=== PATIENT | female | born 1955 | race Caucasian/White ===

== ENCOUNTER 2018-11-24 16:39 | Emergency (ER) | payer OTHER, SELFPAY ==
[2018-11-24 16:45] VITALS: BP 147/96; PULSE 89; RESP 14; O2SAT 99
--- NOTE | 2018-11-24 16:51 | DI.RAD.S_ITS ---
PROCEDURE: XR CHEST 1V INDICATIONS: chest pain TECHNIQUE: One view of the chest was acquired. COMPARISON: None. FINDINGS: Surgical changes and devices: None. Lungs and pleura: Lungs are clear. No pleural effusions or pneumothorax. Mediastinum: Mediastinal contours appear normal. Heart size is normal. Bones and chest wall: No suspicious bony lesions. Overlying soft tissues appear unremarkable. IMPRESSION: No acute cardiopulmonary findings. Dictated by: Glory Burgess M.D. on 11/24/2018 at 17:14 Approved by: Glory Burgess M.D. on 11/24/2018 at 17:15
[2018-11-24 16:52] VITALS: BP 147/96; PULSE 93; RESP 12; TEMP 36.9; O2SAT 98; BMI 44.5
--- NOTE | 2018-11-24 16:58 | ED.CHESTPAIN ---
HPI - Chest Pain General Chief Complaint: Chest Pain Stated Complaint: Right Side Chest Pain for couple of days Time Seen by Provider: 11/24/18 16:50 Source: patient Mode of arrival: ambulatory Limitations: no limitations History of Present Illness HPI narrative: Patient is a 63-year-old female who presents with right-sided chest pain ongoing for last 2 days. It is fairly constant in nature. She noticed it when she went to sleep last night but she was able to sleep without any difficulty and when she woke up it was still there. She has also been having some right-sided jaw aching but she does not know if pain in her chest is radiating to her jaw or not. She denies any worsening pain with movement or deep breathing. She has no abdominal pain nausea shortness of breath with exertion. She did take a Ativan last night to help her sleep. MD complaint: chest pain Duration: constant Onset: during rest Pain location: right chest Severity: moderate Pain radiation: jaw/teeth Relieving factors: nothing Exacerbating factors: nothing Related Data Home Medications Medication Instructions Recorded Confirmed hydrocodone-acetaminophen [Vicodin] #0 04/19/17 meloxicam [Mobic] 7.5 mg PO AMCC #0 04/19/17 topiramate [Topamax] 50 mg #0 04/19/17 Previous Rx's Medication Instructions Recorded oxycodone-acetaminophen [Percocet] 1 - 2 tab PO Q4HP PRN #10 tab 04/19/17 prednisone 50 mg PO AMCC 5 Days #0 tab 04/19/17 Allergies Allergy/AdvReac Type Severity Reaction Status Date / Time Antihistamines - Alkylamine Allergy Intermediate Verified 11/24/18 16:56 [ANTIHISTAMINES - ALKYLAMINE] Review of Systems Review of Systems GENERAL: Denies chills, fatigue, malaise, fever, sweats, travel HEENT: Denies sinus pain, ear pain, sore throat, difficulty swallowing, neck pain RESPIRATORY: See HPI CARDIOVASCULAR: Denies chest pain, palpitations, orthopnea, edema GASTROINTESTINAL: Denies nausea, vomiting, abdominal pain, diarrhea, constipation, melena. : Denies dysuria, frequency, incontinence, hematuria, urinary retention, flank pain. MUSCULOSKELETAL: Denies weakness, joint pain, or bony pain SKIN: No rash, no erythema, no pruritus NEUROLOGIC: Denies weakness, dizziness, headache, numbness, change in speech, confusion PSYCHIATRIC: No concerning psychosocial issues. 12 point review of systems is negative except for those stated above and HPI [facility] Social History Smoking Status: Former smoker Social History Smoking Status: Former smoker Exam Initial Vital Signs Initial Vital Signs: Vital Signs Pulse Rate 89 11/24/18 16:45 Respiratory Rate 14 11/24/18 16:45 Blood Pressure 147/96 H 11/24/18 16:45 Pulse Oximetry 99 11/24/18 16:45 GENERAL: Well-appearing, well-nourished and in no acute distress. HEENT: Head atraumatic,EOMI, pupils reactive CARDIOVASCULAR: Regular rate and rhythm without murmurs, rubs or gallops. Pain not reproducible with palpation RESPIRATORY: Breath sounds equal bilaterally, no wheezes rales or rhonchi. ABDOMEN: Soft, nontender. Normoactive bowel sounds all 4 quadrants. No guarding or rebound. No right upper quadrant tenderness EXTREMITIES: Normal range of motion, no clubbing or edema. Neurovascularly intact NEUROLOGICAL: Alert and oriented x4.Normal gait and speech. Cranial nerves II through XII grossly intact. SKIN: Warm, dry, no laceration, no petechiae, no rashes or lesions. Scores HEART Score Heart Score history: Slightly Suspicious Heart Score EKG: Normal Heart Score Age: 45-64 years old Heart Score risk factors: No known risk factors Heart Score troponin: < or = to normal limit Heart Score Total: 1 Course Orders Ordered: Discontinued Medications Ketorolac Tromethamine (Toradol) 30 mg IV NOW ONE Stop: 11/24/18 16:58 Last Admin: 11/24/18 17:18 Dose: 30 mg Vital Signs - 8 hr 11/24/18 16:52 Temperature 98.4 F Pulse Rate 93 H Respiratory Rate 12 Blood Pressure 147/96 H Pulse Oximetry 98 MDM - Chest Pain Lab Data Attestation: I reviewed the patient's lab results. Result diagrams: 11/24/18 17:12 11/24/18 17:12 Lab Results 11/24/18 11/24/18 11/24/18 Range/Units 17:12 17:12 17:12 WBC 8.7 (4.5-11.0) X10^3/uL RBC 4.75 (4.0-5.2) X10^6/uL Hgb 13.3 (12.0-16.0) g/dL Hct 39.9 (36-46) % MCV 84.1 (80-100) fL MCH 27.9 (26-34) PG MCHC 33.2 (30-36) % RDW 13.8 (11.6-14.8) % Plt Count 315 (150-400) X10^3/uL Neut % (Auto) 71.6 (50-75) % Lymph % (Auto) 17.2 L (25-40) % Keith % (Auto) 8.1 (3-14) % Eos % (Auto) 2.8 (2-4) % Baso % (Auto) 0.3 (0-2) % Neut # (Auto) 6200 (1333-5704) /uL Lymph # (Auto) 1500 (0768-5671) /uL Keith # (Auto) 700 (0-900) /uL Eos # (Auto) 200 (0-450) /uL Baso # (Auto) 0 (0-100) /uL PT 12.1 (10.1-12.7) SECONDS INR 1.0 (0.9-1.3) APTT 31 (26.4-36.2) SECONDS Sodium 142 (137-145) mmol/L Potassium 4.2 (3.4-5.1) mmol/L Chloride 107 (98-107) mmol/L Carbon Dioxide 26 (22-32) mmol/L BUN 14 (7-17) mg/dL Creatinine 0.90 (0.52-1.04) mg/dL Estimated GFR > 60.0 (>60) mL/min BUN/Creatinine Ratio 15.6 (6-22) Glucose 112 H (80-110) mg/dL Calcium 9.7 (8.4-10.2) mg/dL Total Bilirubin 0.4 (0.2-1.3) mg/dL AST 21 (14-36) IU/L ALT 16 (9-52) IU/L Alkaline Phosphatase 102 (38-126) U/L Total Creatine Kinase 64 (30-135) U/L CK-MB (CK-2) TNP CK-MB (CK-2) Rel Index TNP Troponin I < 0.012 (0.01-0.034) ng/mL Total Protein 7.8 (6.3-8.2) g/dL Albumin 4.2 (3.5-5.0) g/dL Globulin 3.6 (1.7-4.1) g/dL Albumin/Globulin Ratio 1.2 (1.0-2.8) Lipase 59 (23-300) U/L Imaging Data Chest x-ray: Radiologist's impression: PROCEDURE: XR CHEST 1V INDICATIONS: chest pain TECHNIQUE: One view of the chest was acquired. COMPARISON: None. FINDINGS: Surgical changes and devices: None. Lungs and pleura: Lungs are clear. No pleural effusions or pneumothorax. Mediastinum: Mediastinal contours appear normal. Heart size is normal. Bones and chest wall: No suspicious bony lesions. Overlying soft tissues appear unremarkable. IMPRESSION: No acute cardiopulmonary findings. Dictated by: Glory Burgess M.D. on 11/24/2018 at 17:14 ECG Data Attestation: I personally reviewed and interpreted this ECG as follows: Prior ECG tracings: not available for review Interpretation: Normal sinus rhythm rate [address] changes or T-wave inversions low voltage noted in leads 3 and AVF MDM Narrative Medical decision making narrative: The patient is re-evaluated her pain is better after Toradol. Her pain is reproducible under the right breast in the right rib cage. At this time I think this is more likely musculoskeletal. I have considered several life threatening etiologies for the patients right-sided chest such as ACS, PE, dissection and this patients presentation is not consistent with such entities and therefore , no further testing was warranted. I discussed all findings with the patient and spouse, Education has been performed regarding treatment plan, diagnosis, warning signs and symptoms and all concerns have been addressed. Verbally agree with and understood all of the above. Discharge Plan Departure Patient Disposition: Home Clinical Impression: Acute costochondritis, Atypical chest pain Discharge Date/Time: 11/24/18 18:20 Interventions: ED Discharge Assessment Last Done: 11/24/18 18:20 Instructions: Costochondritis, DI for Atypical Chest Pain Activity Restrictions/Additional Instructions: *You have been diagnosed with atypical chest pain, costochondritis *What to do: At this time I feel that his chest pain is more musculoskeletal. This can take some time to improve. However he still may require further cardiac testing which her PCP can help you arrange. *Continue to take medications as directed Continue meloxicam 7.5 mg daily-do not combine with ibuprofen, Advil, Aleve, naproxen *Follow up with your primary care provider in 2-3 days *Return to ER if you should have worsening chest pain, increasing shortness of breath, or any new, worsening or concerning symptoms Prescriptions: No Action topiramate [Topamax] 50 MG tablet 50 mg Qty: 0 RF: 0 hydrocodone-acetaminophen [Vicodin] 5 MG/300 MG tablet Qty: 0 RF: 0 meloxicam [Mobic] 7.5 MG tablet 7.5 mg PO AMCC Qty: 0 RF: 0 oxycodone-acetaminophen [Percocet] 5 MG/325 MG tablet 1 - 2 tab PO Q4HP PRNQty: 10 RF: 0 prednisone 50 MG tablet 50 mg PO AMCC 5 Days Qty: 0 RF: 0 Referrals: Merrill Broderick MD [Non-Staff] -
[2018-11-24] MEDS: KETOROLAC 60 MG/2 ML VIAL 30 MG IV (17:18)
[2018-11-24 17:19] LABS: Add Manual Diff / Slide Review NO; Basophils Absolute Auto 0 /uL (0-100); Basophils Percent Auto 0.3 % (0-2); Eosinophils Absolute Auto 200 /uL (0-450); Eosinophils Percent Auto 2.8 % (2-4); Hematocrit 39.9 % (36-46); Hemoglobin 13.3 g/dL (12.0-16.0); Lymphocytes Absolute Auto 1500 /uL (1100-4500); Lymphocytes Percent Auto 17.2 % (25-40); Mean Corpuscular HGB Conc 33.2 % (30-36); Mean Corpuscular Hemoglobin 27.9 PG (26-34); Mean Corpuscular Volume 84.1 fL (80-100); Monocytes Absolute Auto 700 /uL (0-900); Monocytes Percent Auto 8.1 % (3-14); Neutrophils Absolute Auto 6200 /uL (1500-7000); Neutrophils Percent Auto 71.6 % (50-75); Platelet Count 315 X10^3/uL (150-400); Red Blood Cell Count 4.75 X10^6/uL (4.0-5.2); Red Cell Distribution Width 13.8 % (11.6-14.8); White Blood Cell Count 8.7 X10^3/uL (4.5-11.0)
[2018-11-24 17:26] LABS: Prothrombin Time 12.1 SECONDS (10.1-12.7)
[2018-11-24 17:28] LABS: PTT Partial Thromboplastin Tim 31 SECONDS (26.4-36.2)
[2018-11-24 17:34] LABS: Alanine Aminotransferase 16 IU/L (9-52); Albumin 4.2 g/dL (3.5-5.0); Albumin Globulin Ratio 1.2 (1.0-2.8); Alkaline Phosphatase 102 U/L (38-126); Aspartate Aminotransferase 21 IU/L (14-36); BUN Creatinine Ratio 15.6 (6-22); Bilirubin Total 0.4 mg/dL (0.2-1.3); Blood Urea Nitrogen 14 mg/dL (7-17); Calcium 9.7 mg/dL (8.4-10.2); Carbon Dioxide 26 mmol/L (22-32); Chloride 107 mmol/L (98-107); Creatine Kinase 64 U/L (30-135); Estimated Glomerular Filt Rate > 60.0 mL/min (>60); Globulin 3.6 g/dL (1.7-4.1); Glucose 112 mg/dL (80-110); HEMOLYSIS < 15 (0-50); Lipase 59 U/L (23-300); Potassium 4.2 mmol/L (3.4-5.1); Sodium 142 mmol/L (137-145); Total Protein 7.8 g/dL (6.3-8.2)
[2018-11-24 17:45] LABS: Troponin I < 0.012 ng/mL (0.01-0.034)
[2018-11-24 18:05] VITALS: BP 151/84; PULSE 70; RESP 13; O2SAT 99
== END 2018-11-24 18:20 | disposition home or self-care (01) ==
PROVIDERS: Emergency Provider Emergency Medicine
DX: M94.0 Chondrocostal junction syndrome [Tietze] (principal); R07.89 Other chest pain
CPT/HCPCS: 36591; 71045; 80053; 82550; 83690; 84484; 85025; 85610; 85730; 93005; 96374; 99283; 99285; J1885

== ENCOUNTER 2019-03-17 11:25 | Emergency (ER) | payer OTHER, SELFPAY ==
[2019-03-17 11:32] VITALS: BP 132/90; PULSE 82; RESP 13; TEMP 36.1; O2SAT 97
--- NOTE | 2019-03-17 11:34 | ED_ITS ---
HPI - Extremity Injury (Upper) <HERNANDO Hill - Last Filed: 03/17/19 13:37> General Chief Complaint: Extremity Injury, Upper Stated Complaint: Left elbow pain/sweeling 8 hours Time Seen by Provider: 03/17/19 11:29 Source: patient Mode of arrival: Ambulatory Limitations: no limitations History of Present Illness HPI narrative: 63-year-old female presents emergency department complaining of left elbow pain and swelling upon waking this morning. She states the pain is a 2/10 dull aching pain that is worse with palpation. She denies any trauma, history of crawling around in her elbows, recent injuries, recent wounds, chills, or other concerns. She denies nausea, vomiting, diarrhea, chest pain, shortness of breath, shoulder pain, wrist pain. Related Data Home Medications Medication Instructions Recorded Confirmed hydrocodone-acetaminophen [Vicodin] #0 04/19/17 meloxicam [Mobic] 7.5 mg PO AMCC #0 04/19/17 topiramate [Topamax] 50 mg #0 04/19/17 Previous Rx's Medication Instructions Recorded oxycodone-acetaminophen [Percocet] 1 - 2 tab PO Q4HP PRN #10 tab 04/19/17 prednisone 50 mg PO AMCC 5 Days #0 tab 04/19/17 cephalexin 500 mg PO QID 7 Days #28 cap 03/17/19 Allergies Allergy/AdvReac Type Severity Reaction Status Date / Time Antihistamines - Alkylamine Allergy Intermediate Verified 11/24/18 16:56 [ANTIHISTAMINES - ALKYLAMINE] Review of Systems <HERNANDO Hill - Last Filed: 03/17/19 13:37> Review of Systems Narrative: REVIEW OF SYSTEMS: GENERAL: Denies fever or chills. HENT: No head trauma. EYES: No double vision or vision loss. CARDIOVASCULAR: No chest pain or syncope. RESPIRATORY: No shortness of breath or cough. GASTROINTESTINAL: No nausea, vomiting, diarrhea, or constipation. GENITOURINARY: No flank pain or dysuria. MUSCULOSKELETAL: Complains of left elbow pain, see HPI. INTEGUMENTARY: No rash, lesions, or pruritus. NEURO: No numbness, tingling. PSYCH: No behavior or mood changes. Patient History <HERNANDO Hill - Last Filed: 03/17/19 13:37> Medical History Sciatica (Acute) Social History Smoking Status: Former smoker alcohol intake frequency: 0-2 drinks per day Substance Use Type: does not use Exam <HERNANDO Hill - Last Filed: 03/17/19 13:37> Narrative Exam Narrative: PHYSICAL EXAMINATION: GENERAL: Well groomed, alert, and cooperative. Answers questions promptly and appropriately. Vital signs noted. HENT: Normocephalic, atraumatic. EYES: Symmetrical, sclera white, no periorbital swelling. CARDIOVASCULAR: S1 and S2 sounds normal. Regular rate and rhythm, no murmurs, clicks, or bruits. No pedal edema. RESPIRATORY: Normal respiratory rate, trachea midline, airway patent. No stridor, nasal flaring or accessory muscle use. Lungs are clear in all quintero. MUSCULOSKELETAL: Increased swelling, increased warmth, and slight erythema over left olecranon process. Patient has full extension and full flexion of the elbow. Slight tenderness to proximal radial head. Normal gait and coordination. Equal tone and mass bilaterally. Applications Consultant strength equal bilaterally, forearm, d eltoid strength equal bilaterally. EXTREMITIES: CMS intact. No pedal edema. SKIN: Warm, dry, soft, appropriate color for ethnicity. No lesions, rashes, or wounds. NEURO: Alert and Oriented X 3. No sensory deficits. PSYCH: Appropriate affect and mood. Initial Vital Signs Initial Vital Signs: Vital Signs Temperature 97 F L 03/17/19 11:32 Pulse Rate 82 03/17/19 11:32 Respiratory Rate 13 03/17/19 11:32 Blood Pressure 132/90 03/17/19 11:32 Pulse Oximetry 97 03/17/19 11:32 <Mirtha Shepard DO - Last Filed: 03/17/19 16:14> Initial Vital Signs Initial Vital Signs: Vital Signs Temperature 97 F L 03/17/19 11:32 Pulse Rate 82 03/17/19 11:32 Respiratory Rate 13 03/17/19 11:32 Blood Pressure 132/90 03/17/19 11:32 Pulse Oximetry 97 03/17/19 11:32 Course <HERNANDO Hill - Last Filed: 03/17/19 13:37> Orders Ordered: ED Orders 03/17/19 11:33 XR elbow LT min 3V Stat Consultations Consultation #1: Case was staffed with Dr. Shepard. Vital Signs Vital signs: Vital Signs - 8 hr 03/17/19 11:32 Temperature 97 F L Pulse Rate 82 Respiratory Rate 13 Blood Pressure 132/90 Pulse Oximetry 97 <iMrtha Shpeard DO - Last Filed: 03/17/19 16:14> Orders Ordered: ED Orders 03/17/19 11:33 XR elbow LT min 3V Stat Vital Signs Vital signs: Vital Signs - 8 hr 03/17/19 11:32 Temperature 97 F L Pulse Rate 82 Respiratory Rate 13 Blood Pressure 132/90 Pulse Oximetry 97 MDM - Extremity Injury (Upper) <HERNANDO Hill - Last Filed: 03/17/19 13:37> Medical Records Attestation: I reviewed the patient's medical records. Lab Data Attestation: I reviewed the patient's lab results. Imaging Data Elbow XR: Radiologist's impression: [address] [address] XRay Report Signed Patient: Chelita Singh [facility]#: [id number] : 8Acct:[id number] Age/Sex: 63 / FDate of Service: 03/17/19 Loc: ED Accession Number: [id number] Procedure: XR elbow LT min 3V Ordering Provider: Celina Garibay PROCEDURE: XR ELBOW LT MIN 3V INDICATIONS: Swelling/tenderness to L elbow TECHNIQUE: 3 views of the elbow were acquired. COMPARISON: None. FINDINGS: Bones: No fractures or dislocations. No suspicious bony lesions. Age- appropriate bony degenerative changes are seen. Soft tissues: Mild generalized soft tissue swelling is seen. No significant elbow joint effusion. No suspicious soft tissue calcifications. IMPRESSION: Generalized soft tissue swelling is seen, without a brady elbow joint effusion. No acute bony abnormality is seen. Dictated by: Waylon Phelan M.D. on 03/17/2019 at 11:03 Approved by: Waylon Phelan M.D. on 03/17/2019 at 11:03 [facility] Narrative Medical decision making narrative: Differential includes inflammatory bursitis versus cellulitis. Suspecting cellulitis due to diffuse inflammation, increased erythema, and increased tenderness versus explicit inflamed bursa sac (additionally, patient does not report any trauma, crawling on elbows, or repetitive usage that would support bursitis). Less likely septic joint as patient had full range of motion without pain. Patient was given Keflex, she was instructed to return to emergency department for any worsening symptoms, systemic symptoms such as fever, and/or spreading of the rash. Patient currently takes meloxicam as needed for hip pain, she was instructed to take a few doses as well to help relieve swelling and pain. Patient was encouraged to follow up with her primary care provider in the next few weeks for re-evaluation and further discussion about additional testing if indicated if symptoms continue. Strict return precautions given. Discharge Plan Departure Patient Disposition: Home Clinical Impression: Cellulitis Qualifiers: Site of cellulitis: extremity Site of cellulitis of extremity: upper extremity Laterality: left Qualified Code(s): L03.114 - Cellulitis of left upper limb Bursitis Qualifiers: Bursitis location: elbow Elbow bursitis location: olecranon bursitis Laterality: left Qualified Code(s): M70.22 - Olecranon bursitis, left elbow Discharge Date/Time: 03/17/19 12:28 Instructions: DI for Cellulitis -- Adult, DI for Elbow Pain, DI for Elbow Bursitis Activity Restrictions/Additional Instructions: Thank you for entrusting me with your care today. As discussed, your x-ray was negative for any fractures. It is possible your symptoms are caused by cellulitis and/or bursitis. Please take antibiotics as directed. You may use ibuprofen or naproxen for the next few days for swelling and pain. Follow up with your primary care provider in the next few weeks for evaluation. Return emergency department if you develops worsening symptoms such as increased redness, worsening swelling, fevers, chest pain, uncontrollable vomiting, or shortness of breath. Prescriptions: New cephalexin 500 mg capsule 500 mg PO QID 7 Days Qty: 28 RF: 0 No Action topiramate [Topamax] 50 MG tablet 50 mg Qty: 0 RF: 0 hydrocodone-acetaminophen [Vicodin] 5 MG/300 MG tablet Qty: 0 RF: 0 meloxicam [Mobic] 7.5 MG tablet 7.5 mg PO AMCC Qty: 0 RF: 0 oxycodone-acetaminophen [Percocet] 5 MG/325 MG tablet 1 - 2 tab PO Q4HP PRNQty: 10 RF: 0 prednisone 50 MG tablet 50 mg PO AMCC 5 Days Qty: 0 RF: 0
== END 2019-03-17 12:28 | disposition home or self-care (01) ==
PROVIDERS: Emergency Provider Nurse Practitioner
DX: L03.114 Cellulitis of left upper limb (principal); M70.22 Olecranon bursitis, left elbow
CPT/HCPCS: 73080; 99282; 99283

== ENCOUNTER 2019-12-13 23:58 | Emergency (ER) | payer OTHER, SELFPAY ==
[2019-12-14 00:47] VITALS: BP 143/83; PULSE 68; RESP 20; TEMP 36.6
[2019-12-14] MEDS: TET,DIPH,PERTUSS(ACELL),VAC/PF 0.5 ML SYRINGE IM (01:01)
[2019-12-14] MEDS: LIDO 1%/SOD BICARB 8.4% (10ML) 10 ML SYRINGE INJ (01:06)
--- NOTE | 2019-12-14 01:12 | ED_ITS ---
HPI - Wound/Laceration General Chief Complaint: Wound/Laceration Stated Complaint: cut on left eyebrow Time Seen by Provider: 12/13/19 23:59 Source: patient and family Mode of arrival: Ambulatory Limitations: no limitations History of Present Illness HPI narrative: 64F former smoker presents with significant other and chief complaint of a fall from ground level with facial laceration. She was walking and carrying some objects at a local [place] site and tripped on a curb and fell forward striking her forehead on the ground. She denies other injury. She denies loss of consciousness nor nausea or vomiting. She does not take any blood thinners. She has full recall of the event and states her fall was purely due to tripping. Her tetanus is out-of-date and she is willing to updated today Onset (ago): minute(s) Location: face Place: outdoors Patient tetanus UTD: No Context: accidental Associated symptoms: none Treatments prior to arrival: bandage Related Data Home Medications Medication Instructions Recorded Confirmed hydrocodone-acetaminophen [Vicodin] #0 04/19/17 meloxicam [Mobic] 7.5 mg PO AMCC #0 04/19/17 topiramate [Topamax] 50 mg #0 04/19/17 Previous Rx's Medication Instructions Recorded oxycodone-acetaminophen [Percocet] 1 - 2 tab PO Q4HP PRN #10 tab 04/19/17 prednisone 50 mg PO AMCC 5 Days #0 tab 04/19/17 Allergies Allergy/AdvReac Type Severity Reaction Status Date / Time Antihistamines - Alkylamine Allergy Intermediate Verified 11/24/18 16:56 [ANTIHISTAMINES - ALKYLAMINE] Review of Systems Constitutional Constitutional: Denies chills, Denies fatigue, Denies fever(s), Denies frequent falls, Denies lethargy and Denies weakness Eyes Eyes: Denies change in vision, Denies eye discharge, Denies irritation and De nies loss of vision ENT Ears, Nose, Mouth, and Throat: Denies change in voice, Denies dizziness, Denies neck pain, Denies sore throat and Denies throat swelling Cardiovascular Cardiovascular: Denies chest pain, Denies irregular heart rhythm, Denies lightheadedness, Denies palpitations, Denies dyspnea, Denies dyspnea on exertion and Denies orthopnea Respiratory Respiratory: Denies cough, Denies dyspnea, Denies dyspnea on exertion and Denies wheezing Gastrointestinal Gastrointestinal: Denies abdominal pain, Denies change in bowel habits, Denies diarrhea, Denies nausea and Denies vomiting Musculoskeletal Musculoskeletal: Denies neck pain and Denies numbness Integumentary/Breasts Skin/Breast: Denies pruritus, Denies erythema, Denies rash and Reports wounds Neurologic Neurologic: Denies behavioral changes, Denies confusion, Denies dizziness, Denies frequent falls, Denies loss of vision, Denies numbness and Denies weakness Psychiatric Psychiatric: Denies anxiety, Denies behavioral changes, Denies confusion, Denies depression, Denies homicidal ideation and Denies suicidal ideation Endocrine Endocrine: Denies fatigue, Denies flushing and Denies palpitations Hematologic/Lymphatic Hematologic/Lymphatic: Denies easy bruising Allergic/Immunologic Allergic/Immunologic: Denies urticaria, Denies throat swelling and Denies wheezing Patient History Medical History Sciatica (Acute) Social History Smoking Status: Former smoker Smoking Status: Former smoker alcohol intake frequency: 0-2 drinks per day Substance Use Type: does not use Exam Narrative Exam Narrative: GEN: AOx3 and in mild distress. GCS 15 HEAD: 1 cm laceration with minimal bleeding over left brow. No evidence of depressed skull fracture. NECK: No midline pain or step-off. No pain with range of motion EYES: Pupils are equal, round, and reactive to light and accommodation. Extraoccular muscles are intact bilaterally. There is no subconjunctival hemorrhage or exudate. CHEST: Lungs are clear to auscultation bilaterally and free of wheezes, rales, or rhonchi. Heart rate is regular rhythm, there are no murmurs, clicks, rubs, or gallops. There is no chest wall tenderness. ABD: Abdomen is soft and nontender. There is no guarding or rebound. Bowel sounds are normal in all 4 quadrants. There is no mass or organomegaly. EXT: Full painless ROM of all extremities with no loss of sensation or strength. SKIN: Warm, pink, and dry. No erythema or rash Initial Vital Signs Initial Vital Signs: Vital Signs Temperature 97.9 F 12/14/19 00:47 Pulse Rate 68 12/14/19 00:47 Respiratory Rate 20 12/14/19 00:47 Blood Pressure 143/83 H 12/14/19 00:47 Procedures Laceration Repair Laceration 1: Site: face Side (If applicable): left Size (cm): 1.0 Description: linear Depth: simple, single layer Local Anesthetic: lidocaine 1% Amount of anesthesia used (mL): 3 Pre-repair: wound explored and irrigated extensively Skin layer closed with: nylon Size (cm): 6-0 Number of sutures: 2 Technique: simple, interrupted Course Orders Ordered: Discontinued Medications Diphtheria/Tetanus/Acell Pertussis (Adacel) 0.5 ml IM .ONCE ONE Stop: 12/14/19 00:56 Last Admin: 12/14/19 01:01 Dose: 0.5 ml Documented by: TIMOTHY Lidocaine/Sodium Bicarbonate (Buffered Lidocaine 10 Ml Syr) 10 ml INJ NOW ONE Stop: 12/14/19 00:52 Last Admin: 12/14/19 01:06 Dose: 10 ml Documented by: TIMOTHY Vital Signs Vital signs: Vital Signs - 8 hr 12/14/19 00:47 12/14/19 01:15 Temperature 97.9 F Pulse Rate 68 60 Respiratory Rate 20 18 Blood Pressure 143/83 H Pulse Oximetry 97 Discharge Plan Departure Patient Disposition: Home Clinical Impression: Laceration Discharge Date/Time: 12/14/19 01:28 Instructions: DI for Laceration Repair Activity Restrictions/Additional Instructions: Please keep the wound clean and dry to the best of your ability. Please monitor for signs of infection such as redness to the skin or increasing pain. Have the sutures removed by your doctor in about 7 days. If you are unable to get into your doctor, we would be happy to remove the sutures in that same timeframe. Prescriptions: No Action topiramate [Topamax] 50 MG tablet 50 mg Qty: 0 RF: 0 hydrocodone-acetaminophen [Vicodin] 5 MG/300 MG tablet Qty: 0 RF: 0 meloxicam [Mobic] 7.5 MG tablet 7.5 mg PO AMCC Qty: 0 RF: 0 oxycodone-acetaminophen [Percocet] 5 MG/325 MG tablet 1 - 2 tab PO Q4HP PRNQty: 10 RF: 0 prednisone 50 MG tablet 50 mg PO AMCC 5 Days Qty: 0 RF: 0 Referrals: Trudi Jones DO [Primary Care Provider] -
[2019-12-14 01:15] VITALS: PULSE 60; RESP 18; O2SAT 97
== END 2019-12-14 01:28 | disposition home or self-care (01) ==
PROVIDERS: Emergency Provider Emergency Medicine; PCP Family Medicine
DX: S01.81XA Laceration without foreign body of other part of head, initial encounter (principal); W19.XXXA Unspecified fall, initial encounter; Z23 Encounter for immunization
CPT/HCPCS: 12011; 90471; 99283; 99284; 90715

== ENCOUNTER → 2020-03-08 14:11 | Outpatient (CLI) | payer OTHER, SELFPAY ==
--- NOTE | 2020-03-08 | DI.MG.S_ITS ---
BILATERAL DIGITAL SCREENING MAMMOGRAM 3D/2D WITH CAD: 03/08/2020 CLINICAL: Routine screening. Comparison is made to exams dated: 04/15/2017 mammogram - [facility] and 03/11/2015 mammogram - [facility]. The tissue of both breasts is predominantly fatty. Current study was also evaluated with a Computer Aided Detection (CAD) system. No significant masses, calcifications, or other findings are seen in either breast. There has been no significant interval change. IMPRESSION: NEGATIVE There is no mammographic evidence of malignancy. A 1 year screening mammogram is recommended. This exam was interpreted at Station ID: [id number]. NOTE: For mammograms, a report in lay terms will be sent to the patient. Approximately 15% of breast malignancies will not be visualized mammographically. In the management of a palpable breast mass, a negative mammogram must not discourage biopsy of a clinically suspicious lesion. Electronically Signed By: Sunil [email or web address]:03/10/2020 12:12:47 letter sent: Normal Exam ACR BI-RADS Category 1: Negative [id number]
== END ==
PROVIDERS: PCP Family Medicine; Referring Provider Family Medicine; Visit Provider Family Medicine
DX: Z12.31 Encounter for screening mammogram for malignant neoplasm of breast (principal)
CPT/HCPCS: 77063; 77067

== ENCOUNTER → 2021-04-02 11:06 | Outpatient (CLI) | payer OTHER, SELFPAY ==
--- NOTE | 2021-04-02 11:11 | DI.RAD.S_ITS ---
PROCEDURE: XR FOOT LT MIN 3V INDICATIONS: LT FOOT INJURY/PAIN TECHNIQUE: 3 views of the foot were acquired. COMPARISON: [facility], CR, XR FOOT 1 OR 2 VIEWS LEFT, 12/13/2012, 9:05. FINDINGS: Bones: No fractures or dislocations. No suspicious bony lesions. Left metatarsophalangeal joint replacement noted. Periprosthetic 1 mm lucency noted. Unchanged os navicularis Soft tissues: No tibiotalar joint effusion. Achilles tendon appears normal. IMPRESSION: 1. No acute findings. No fracture or malalignment. No lytic lesion. 2. Left 1st MTP arthroplasty in good position. 1 mm periprosthetic lucency may reflect loosening Approved by: Geovanny Maldonado M.D. on 04/02/2021 at 17:53
== END ==
PROVIDERS: PCP Family Medicine; Referring Provider Family Medicine; Visit Provider Family Medicine
DX: S99.922A Unspecified injury of left foot, initial encounter (principal); M79.672 Pain in left foot; X58.XXXA Exposure to other specified factors, initial encounter
CPT/HCPCS: 73630

== ENCOUNTER → 2021-10-31 15:04 | Outpatient (CLI) | payer OTHER, SELFPAY ==
--- NOTE | 2021-10-31 | DI.RAD.S_ITS ---
PROCEDURE: XR SHOULDER LT MIN 2V INDICATIONS: Fall/Left Shoulder Pain TECHNIQUE: 3 views of the shoulder were acquired. COMPARISON: None. FINDINGS: Bones: No acute fractures or dislocations. No suspicious bony lesions. Visualized ribs appear intact. Mild to moderate degenerative changes seen in the acromioclavicular joint. Soft tissues: No suspicious soft tissue calcifications. IMPRESSION: No acute osseous abnormality. If clinical suspicion and/or symptoms persist, additional imaging with repeat plain films, or advanced imaging (e.g. CT, MRI) may be helpful for further assessment. Dictated by: Sunil Lester M.D. on 10/31/2021 at 16:08 Approved by: Sunil Lester M.D. on 10/31/2021 at 16:09
== END ==
PROVIDERS: PCP Family Medicine; Referring Provider Family Medicine; Visit Provider Family Medicine
DX: M75.102 Unspecified rotator cuff tear or rupture of left shoulder, not specified as traumatic (principal); M25.512 Pain in left shoulder
CPT/HCPCS: 73030

== ENCOUNTER → 2022-12-15 09:53 | Outpatient (CLI) | payer MEDICARE, OTHER, SELFPAY ==
--- NOTE | 2022-12-15 | DI.MG.S_ITS ---
BILATERAL DIGITAL SCREENING MAMMOGRAM 3D/2D WITH CAD: 12/15/2022 CLINICAL: Routine screening. Comparison is made to exams dated: 03/08/2020 mammogram, 04/15/2017 mammogram - [facility], and 03/11/2015 mammogram - [facility]. Both breasts are almost entirely fatty (category a/<25% glandular tissue). Current study was also evaluated with a Computer Aided Detection (CAD) system. No significant masses, calcifications, or other findings are seen in either breast. There has been no significant interval change. IMPRESSION: NEGATIVE There is no mammographic evidence of malignancy. A 1 year screening mammogram is recommended. Based on the Tyrer Cuzick model (a risk assessment model) the patient's lifetime risk is 2.8% and her 10 year risk is 1.4%. According to the ACR, ACS, and NCCN guidelines, an annual breast MRI exam along with mammogram is recommended if the patient's lifetime risk is 20% or greater. This exam was interpreted at Station ID: [id number]. NOTE: For mammograms, a report in lay terms will be sent to the patient. Approximately 15% of breast malignancies will not be visualized mammographically. In the management of a palpable breast mass, a negative mammogram must not discourage biopsy of a clinically suspicious lesion. Electronically Signed By: Henry [email or web address]/[email or web address]:12/15/2022 15:20:40 letter sent: Normal Exam ACR BI-RADS Category 1: Negative [id number]
== END ==
PROVIDERS: PCP Family Medicine; Referring Provider Student in an Organized Health Care Education/Training Program; Visit Provider Student in an Organized Health Care Education/Training Program
DX: Z12.31 Encounter for screening mammogram for malignant neoplasm of breast (principal)
CPT/HCPCS: 77063; 77067

== ENCOUNTER 2023-05-23 13:36 | Emergency (ER) | payer MEDICARE, SELFPAY ==
[2023-05-23 13:48] VITALS: BP 161/79; PULSE 70; RESP 17; TEMP 36.1; O2SAT 98; BMI 32.5
[2023-05-23 14:04] LABS: Appearance Urine UA CLEAR; Bilirubin Urine UA NEGATIVE (NEGATIVE); Glucose Urine UA NEGATIVE (Negative); Ketones Urine UA TRACE (NEGATIVE); Leukocyte Esterase Urine UA 2+ (NEGATIVE); Nitrite Urine UA POSITIVE (Negative); Occult Blood Urine UA 3+ (Negative); Protein Urine UA 2+ (Negative); Specific Gravity Urine UA >=1.030 (1.000-1.035)
[2023-05-23 14:14] LABS: pH Urine UA 6.5 (4.5-8.0)
[2023-05-23 14:15] LABS: Bacteria Urine Moderate (10-30); Color Urine UA YELLOW; RBC Urine 5-10/HPF (0-5/HPF); WBC Urine 10-30/HPF (0-5/HPF)
[2023-05-23 14:16] LABS: Culture Indicated Urine Specimen Cultured; Squamous Epithelial Cell Urine 0-1 /HPF (0-5/HPF)
--- NOTE | 2023-05-23 14:38 | ED.FEMALEGU ---
HPI - Female Genitourinary <Cameron Nguyễn PA-C - Last Filed: 05/23/23 14:51> General Chief complaint: Urogenital-Female Stated complaint: states bladder infection Time Seen by Provider: 05/23/23 14:05 Source: patient Mode of arrival: Ambulatory History of Present Illness HPI Narrative: 67-year-old female with sciatica, migraines presents to the ED with 1 week of dysuria, urinary frequency, urinary urgency. Patient denies fever, chills, nausea, vomiting. Patient endorses suprapubic pressure. Denies abdominal pain, back pain. Denies frequent UTIs. Related Data Home Medications Medication Instructions Recorded Confirmed hydrocodone 5 mg-acetaminophen 300 ##0 04/19/17 mg tablet (Vicodin) meloxicam 7.5 mg tablet (Mobic) 7.5 mg PO AMCC ##0 04/19/17 topiramate 50 mg tablet (Topamax) 50 mg ##0 04/19/17 Previous Rx's Medication Instructions Recorded oxycodone-acetaminophen 5 mg-325 1 - 2 tab PO Q4HP PRN #10 tabs 04/19/17 mg tablet (Percocet) prednisone 50 mg tablet 50 mg PO AMCC 5 days #0 tabs 04/19/17 cefpodoxime 200 mg tablet 200 mg PO Q12H 10 days #20 tabs 05/23/23 Allergies Allergy/AdvReac Type Severity Reaction Status Date / Time Antihistamines - Alkylamine Allergy Intermediate my body Verified 05/23/23 13:47 [ANTIHISTAMINES - ALKYLAMINE] won't move Review of Systems <Cameron Nguyễn PA-C - Last Filed: 05/23/23 14:51> Constitutional Constitutional: Denies chills, Denies fatigue, Denies fever(s), Denies frequent falls, Denies lethargy and Denies weakness Eyes Eyes: Denies change in vision, Denies eye discharge, Denies irritation and Denies loss of vision ENT Ears, Nose, Mouth, and Throat: Denies change in voice, Denies dizziness, Denies neck pain, Denies sore throat and Denies throat swelling Cardiovascular Cardiovascular: Denies chest pain, Denies irregular heart rhythm, Denies lightheadedness, Denies palpitations, Denies dyspnea, Denies dyspnea on exertion and Denies orthopnea Respiratory Respiratory: Denies cough, Denies dyspnea, Denies dyspnea on exertion and Denies wheezing Gastrointestinal Gastrointestinal: Denies abdominal pain, Denies change in bowel habits, Denies diarrhea, Denies nausea and Denies vomiting Genitourinary Genitourinary: Reports dysuria and Reports urinary urgency Comments: Urinary frequency; suprapubic pressure Musculoskeletal Musculoskeletal: Denies neck pain and Denies numbness Integumentary/Breasts Skin/Breast: Denies pruritus, Denies erythema, Denies rash and Denies wounds Neurologic Neurologic: Denies behavioral changes, Denies confusion, Denies dizziness, Denies frequent falls, Denies loss of vision, Denies numbness and Denies weakness Psychiatric Psychiatric: Denies anxiety, Denies behavioral changes, Denies confusion, Denies depression, Denies homicidal ideation and Denies suicidal ideation Endocrine Endocrine: Denies fatigue, Denies flushing and Denies palpitations Hematologic/Lymphatic Hematologic/Lymphatic: Denies easy bruising Allergic/Immunologic Allergic/Immunologic: Denies urticaria, Denies throat swelling and Denies wheezing Patient History <Cameron Nguyễn PA-C - Last Filed: 05/23/23 14:51> Medical History Sciatica alcohol intake frequency: 0-2 drinks per day Substance Use Type: does not use Exam <Cameron Nguyễn PA-C - Last Filed: 05/23/23 14:51> Narrative Exam Narrative: Const General:?cooperative, healthy appearing and comfortable [facility] Head:?normal to inspection Ears:?hearing grossly normal bilaterally Nose:?external nose normal Face and sinus:?normal facial exam and sinuses nontender Mouth:?oral mucosae normal Throat:?posterior oropharynx normal Eyes General:?appearance normal, both eyes and all related structures Neck Neck:?normal visual inspection and no lymphadenopathy noted Resp Effort & Inspection:?normal respiratory effort Auscultation:?clear to auscultation bilaterally Cardio Rate:?regular rate Rhythm:?regular rhythm GI Abdomen is soft, nondistended, nontender to palpation. No CVA tenderness. Neuro General:?patient alert, patient awake and patient oriented x3 Initial Vital Signs Initial Vital Signs: Vital Signs Temperature 97.0 F L 05/23/23 13:48 Pulse Rate 70 05/23/23 13:48 Respiratory Rate 17 05/23/23 13:48 Blood Pressure 161/79 H 05/23/23 13:48 Pulse Oximetry 98 05/23/23 13:48 Oxygen Delivery Method Room Air 05/23/23 13:48 <Corinne Blanco DO - Last Filed: 05/24/23 13:28> Initial Vital Signs Initial Vital Signs: Vital Signs Temperature 97.0 F L 05/23/23 13:48 Pulse Rate 70 05/23/23 13:48 Respiratory Rate 17 05/23/23 13:48 Blood Pressure 161/79 H 05/23/23 13:48 Pulse Oximetry 98 05/23/23 13:48 Oxygen Delivery Method Room Air 05/23/23 13:48 Course <Cameron Nguyễn PA-C - Last Filed: 05/23/23 14:51> Orders Ordered: ED Orders 05/23/23 13:51 Urinalysis and Microscopic Stat Urine Culture Stat Vital Signs Vital signs: Vital Signs - 8 hr 05/23/23 13:48 Temperature 97.0 F L Pulse Rate 70 Respiratory Rate 17 Blood Pressure 161/79 H Pulse Oximetry 98 Oxygen Delivery Method Room Air <Corinne Blanco DO - Last Filed: 05/24/23 13:28> Orders Ordered: ED Orders 05/23/23 13:51 Urinalysis and Microscopic Stat Urine Culture Stat Vital Signs Vital signs: Vital Signs - 8 hr 05/23/23 13:48 Temperature 97.0 F L Pulse Rate 70 Respiratory Rate 17 Blood Pressure 161/79 H Pulse Oximetry 98 Oxygen Delivery Method Room Air MDM - Female Genitourinary <SANDRO Calvert Last Filed: 05/23/23 14:51> Lab Data Labs: Lab Results 05/23/23 Range/Units 13:51 Urine Color Yellow Urine Appearance Clear Urine pH 6.5 (4.5-8.0) Ur Specific [place] >=1.030 H (1.000-1.035) Urine Protein 2+ H (Negative) Urine Glucose (UA) Negative (Negative) g/dL Urine Ketones Trace H (NEGATIVE) Urine Occult Blood 3+ H (Negative) Urine Nitrate Positive H (Negative) Urine Bilirubin Negative (NEGATIVE) Urine Urobilinogen 1.0 (0.2) E.U./dL Ur Leukocyte Esterase 2+ H (NEGATIVE) Urine RBC 5-10/hpf H (0-5/HPF) Urine WBC 10-30/hpf H (0-5/HPF) Ur Squamous Epith Cells 0-1 /hpf (0-5/HPF) Urine Bacteria Moderate (10-30) H (None) Ur Culture Indicated? Specimen cultured MDM Narrative Medical decision making narrative: 67-year-old female with sciatica, migraines presents to the ED with 1 week of dysuria, urinary frequency, urinary urgency. Concern for urinary tract infection versus other. UA was obtained which was positive for UTI. Antibiotics prescribed. Recommend good hydration. Recommend follow-up with PCP as soon as possible. ED return precautions discussed with patient. Patient verbalized understanding. Medical records reviewed: Yes <Corinne Blanco DO - Last Filed: 05/24/23 13:28> Lab Data Labs: Lab Results 05/23/23 Range/Units 13:51 Urine Color Yellow Urine Appearance Clear Urine pH 6.5 (4.5-8.0) Ur Specific [place] >=1.030 H (1.000-1.035) Urine Protein 2+ H (Negative) Urine Glucose (UA) Negative (Negative) g/dL Urine Ketones Trace H (NEGATIVE) Urine Occult Blood 3+ H (Negative) Urine Nitrate Positive H (Negative) Urine Bilirubin Negative (NEGATIVE) Urine Urobilinogen 1.0 (0.2) E.U./dL Ur Leukocyte Esterase 2+ H (NEGATIVE) Urine RBC 5-10/hpf H (0-5/HPF) Urine WBC 10-30/hpf H (0-5/HPF) Ur Squamous Epith Cells 0-1 /hpf (0-5/HPF) Urine Bacteria Moderate (10-30) H (None) Ur Culture Indicated? Specimen cultured Discharge Plan Departure Patient Disposition: Home Clinical Impression: UTI (urinary tract infection) Qualifiers: Urinary tract infection type: acute cystitis Hematuria presence: with hematuria Qualified Code(s): N30.01 - Acute cystitis with hematuria Instructions: DI for Urinary Tract Infection (UTI) Activity Restrictions/Additional Instructions: You were evaluated in the ED today for urinary symptoms. You tested positive for a urinary tract infection. You are being prescribed antibiotics. Please take those as prescribed. Please continue to stay well hydrated. Please follow-up with your PCP as soon as possible. Return to the ED if you have worsening symptoms, persistent vomiting, fever, chills. Prescriptions: New cefpodoxime 200 mg tablet 200 mg PO Q12H 10 Days Qty: 20 0RF Rx Instructions: must administer with a meal/food No Action topiramate [Topamax] 50 MG tablet 50 mg Qty: 0 hydrocodone-acetaminophen [Vicodin] 5 MG/300 MG tablet Qty: 0 meloxicam [Mobic] 7.5 MG tablet 7.5 mg PO AMCC Qty: 0 oxycodone-acetaminophen [Percocet] 5 MG/325 MG tablet 1 - 2 tab PO Q4HP PRNQty: 10 0RF prednisone 50 MG tablet 50 mg PO AMCC 5 Days Qty: 0 0RF Referrals: Trudi Jones DO [Primary Care Provider] - Stand Alone Forms: Patient Portal/API ED Sign-out <Corinne Blanco DO - Last Filed: 05/24/23 13:28> Cosign ED Attending Cosignature Attestation: I was available for consultation.
[2023-05-23 14:44] VITALS: BP 154/78; PULSE 74; RESP 16; O2SAT 97
== END 2023-05-23 14:44 | disposition home or self-care (01) ==
PROVIDERS: Emergency Medicine; Emergency Provider Student in an Organized Health Care Education/Training Program; PCP Family Medicine
DX: N30.01 Acute cystitis with hematuria (principal)
CPT/HCPCS: 81001; 87077; 87086; 87186; 99281; 99283

== ENCOUNTER → 2024-03-09 12:50 | Outpatient (CLI) | payer MEDICARE, SELFPAY ==
--- NOTE | 2024-03-09 12:51 | DI.MG.S_ITS ---
BILATERAL DIGITAL SCREENING MAMMOGRAM 3D/2D WITH CAD: 03/09/2024 CLINICAL: Routine screening. Comparison is made to exams dated: 12/15/2022 mammogram, 03/08/2020 mammogram, and 04/15/2017 mammogram - [facility]. The breasts are almost entirely fatty (category a/<25% glandular tissue). Current study was also evaluated with a Computer Aided Detection (CAD) system. No significant masses, calcifications, or other findings are seen in either breast. There has been no significant interval change. IMPRESSION: NEGATIVE There is no mammographic evidence of malignancy. A 1 year screening mammogram is recommended. Based on the Tyrer Cuzick model (a risk assessment model) the patient's lifetime risk is 2.7% and her 10 year risk is 1.4%. According to the ACR, ACS, and NCCN guidelines, an annual breast MRI exam along with mammogram is recommended if the patient's lifetime risk is 20% or greater. This exam was interpreted at Station ID: [id number]. NOTE: For mammograms, a report in lay terms will be sent to the patient. Approximately 15% of breast malignancies will not be visualized mammographically. In the management of a palpable breast mass, a negative mammogram must not discourage biopsy of a clinically suspicious lesion. Electronically Signed By: Melani Acosta M.D., Ph.D. [email or web address]:03/09/2024 23:48:40 letter sent: Normal Exam ACR BI-RADS Category 1: Negative
== END ==
LOC: MAMMO 12:51
PROVIDERS: Family Provider Orthopaedic Surgery; PCP Family Medicine; Referring Provider Family Medicine; Visit Provider Family Medicine
DX: Z12.31 Encounter for screening mammogram for malignant neoplasm of breast (principal); R92.313 Mammographic fatty tissue density, bilateral breasts
CPT/HCPCS: 77063; 77067

== ENCOUNTER 2024-04-12 09:45 | Outpatient (RCR) | payer MEDICARE, SELFPAY ==
--- NOTE | 2024-02-14 15:24 | PT.OIE ---
Current Diagnoses Pain in left shoulder (02/14/24) Stiffness of left shoulder, not elsewhere classified (02/14/24) Weakness (02/14/24) Strain of muscle(s) and tendon(s) of the rotator cuff of left shoulder, subsequent encounter (02/14/24) Past Medical History (Last Reviewed 05/23/23 @ 14:49 by Cameron Nguyễn PA-C) Sciatica Visit Care Team Role Provider Type Trudi Jones DO Primary Care Provider Non-Staff Specialty: Family Practice Address: [address] [place] [address], [address], [address] Email: Melo Azevedo MD Attending Provider Non-Staff Family Provider Referring Provider Specialty: Orthopedic Surgery Address: [address] [place] [address], [facility] [address], [place], [address] Email: Physical Therapy Initial Evaluation PT-OP-A Visit Information Start: 02/14/24 12:51 Freq: Status: Active Protocol: Document 02/14/24 14:31 NM (Rec: 02/14/24 15:47 NM [id number]) Out-Patient Physical Therapy Visit Information Visit Information Visit Type Initial Evaluation Visit Start Time 14:35 Visit Stop Time 15:15 Visit Number 1 Evaluation Information Evaluation Date 02/14/24 Precautions Precautions s/p L shoulder arthroscopy with rotator cuff and proximal biceps tendon repair, DOS 12/28 6 weeks: 02/09/24, 8 weeks 02/22, 12 weeks 03/22/24 PMH brain tumor, joint replacement, back and neck pain, headaches, TBI/concusion PT-OP-B Current Condition Start: 02/14/24 12:51 Freq: Status: Active Protocol: Document 02/14/24 14:31 NM (Rec: 02/14/24 15:47 NM [id number]) Current Condition History of Current Condition Onset Date DOS 12/29/23 Current Complaints pain, limited strength and ROM , decreased ADLs History of Current Condition Pt has L shoulder arthroscopy and rotator cuff revision on . She states that they reinforced the rotator cuff and she had a tear in the ligaments away from the muscle in the biceps. Pt had a rotator repair in 2021, reports no complications during that time. She reports that retore her muscles after lifting a patio heater when lifting back in October 2023; states that she felt a a burning sensation. She went to see Dr. Melo Azevedo last week for follow up, reports that Dr in pleased except for not wearing sling; reports that pt stopped wearing her sling 3 weeks ago. Reports tenderness along anterior shoulder near biceps. Reports no falls. Prior to stopping wearing sling, she was wearing time study technician (d/c from pillow sling at 2 weeks); no signs of infections. Pt reports that she has been going off of sheet protocol; reports no pain or discomfort. Pt reports that she has been actively using her arm since d/c sling. She lives alone. She is retired. She is icing for pain , not on any medication for pain. Pt reports that she has not really been lifting anything with her L arm except for carrying her clothes, which causes discomfort. She has a follow up with her surgeon in March. Pt is right handed. Reports difficulty mild difficulty with dressing, brushing dog Treatment Goals Patient/Caregiver Goals ROM, strength Current Functional Impairments (Reported) Functional Limitations- ADL's dressing, grooming Functional Limitations- Work/School retired Functional Limitations- Recreation/ brushing dog, lifting, Hobbies carrying laundry Functional Limitations- Other sleepinx/day (in bed: on L side and stomach), was sleeping in recliner or with body pillow PT-OP-C Subjective Start: 02/14/24 12:51 Freq: Status: Active Protocol: Document 02/14/24 14:31 NM (Rec: 02/14/24 15:47 NM [id number]) OP-PT Subjective Patient Comments Patient Comments pt consents to participate in evaluation Patient Questionnaires Quick Dash- Upper Extremity Quick Dash UE Score 18.2% impaired (19 score) OP-PT Pain Assessment Location L shoulder Pain Location Details biceps, rotator cuff Intensity 4 Scale Used Numeric (0 - 10) Description Aching Frequency Frequent Pain Aggravating Factors ADL's,Exercise Other Pain Aggravating Factors brushing dog Pain Alleviating Factors Cold,Medication,Massage Other Pain Alleviating Factors CBD cream PT-OP-F Manual Assessment Start: 02/14/24 12:51 Freq: Status: Active Protocol: Document 02/14/24 14:31 NM (Rec: 02/14/24 15:47 NM [id number]) Manual Assessments Soft Tissue Assessment Soft Tissue Mobility Assessment Increased lat and upper trap/ levator scapula tightness. Tenderness with small bulge over distal/middle muscle belly of biceps, reduced with gentle mobilization Joint Mobility Assessment Joint Mobility Assessment Decreased inferior glide L shoulder. Increased anterior humeral positioning in both resting posture and during AROM Other Manual Assessments Other Manual Assessments Distal biceps tendon intact via hook test, no edita sign present for proximal biceps PT-OP-H Neuro Start: 02/14/24 12:51 Freq: Status: Active Protocol: Document 02/14/24 14:31 NM (Rec: 02/14/24 15:47 NM [id number]) Sensation Evaluation Comments Summary Comments BUE equally intact to light touch sensation PT-OP-J Posture/Palpation/Skin Start: 02/14/24 12:51 Freq: Status: Active Protocol: Document 02/14/24 14:31 NM (Rec: 02/14/24 15:47 NM [id number]) Posture Evaluation Position Standing Head/C-Spine Posture Forward Head Shoulder Posture (L) Rounded,(R) Rounded,(L) Forward,(R) Forward Scapula Posture (R) Neutral,(L) Retracted,(R) Elevated Arm Posture (L) Internally Rotated,(R) Internally Rotated Pelvis Posture Anteriorly Tilted Knee Posture (L) Genu Valgus,(R) Genu Valgus Palpation Assessment Location L shoulder Palpation Details Tenderness along biceps muscle belly No tenderness along rotator cuff muscles, incisions, rhomboids, periscapulars Increased tightness of upper trap, levator scapula Skin Assessment Incisional Assessment Incision Appearance/Comments Scars intact, healing without signs of infection. Multiple scars present along anterior, lateral, and posterior shoulder. Mild adhesions of anterior shoulder scars. One slight open scab/wound (not scar) on posterior shoulder. Keloid scarring visible from previous surgeries PT-OP-K Range of Motion Start: 02/14/24 12:51 Freq: Status: Active Protocol: Document 02/14/24 14:31 NM (Rec: 02/14/24 15:47 NM [id number]) Shoulder Goniometric Range of Motion Shoulder Right Flexion 150 Extension 60 Abduction 170 External Rotation at 90 degrees 80 Abduction External Rotation at 0 degrees Abduction 80 Internal Rotation Behind Back (text) T7 Comments ER C7 Left AROM Flexion 140 Abduction 140 External Rotation at 0 degrees Abduction 50 Internal Rotation Behind Back (text) T10 Comments discomfort with abduction; tight with ER ER to occiput Left PROM Flexion 150 Abduction 110 External Rotation at 0 degrees Abduction 75 Elbow/Forearm Range of Motion Elbow/Forearm Right Elbow Flexion (degrees) 130 Elbow Extension (degrees) 3 Left Elbow Flexion (degrees) 125 Elbow Extension (degrees) 5 Comments Discomfort reported with end range flexion PT-OP-M Strength Start: 02/14/24 12:51 Freq: Status: Active Protocol: Document 02/14/24 14:31 NM (Rec: 02/14/24 15:47 NM [id number]) Shoulder Strength Shoulder Manual Muscle Testing Right Flexion 4 Good Abduction (C5) 4 Good External Rotation 4 Good Internal Rotation 4 Good Left Flexion 3 Fair Abduction (C5) 3 Fair External Rotation 3 Fair Comments Did not formally assess strength due to precautions; pt able to lift arm against gravity through ROM Elbow/Forearm Strength Elbow and Forearm Manual Muscle Testing Right Flexion (C6) 4 Good Extension (C7) 4 Good Left Flexion (C6) 3 Fair Extension (C7) 3 Fair Comments Did not formally assess strength due to precautions; pt able to lift arm against gravity through ROM PT-OP-Q Treatments Start: 02/14/24 12:51 Freq: Status: Active Protocol: Document 02/14/24 14:31 NM (Rec: 02/14/24 15:47 NM [id number]) Therapeutic Exercises Supine Exercises serratus press Supine Exercise Name HEP Side left Reps/Minutes 10 Comments cueing for gentle motion, form ; good activation Sitting Exercises scapular retraction Sitting Exercise Name adduction and retraction Side bilateral Reps/Minutes 10x5 Comments cueing to limit shoulder elevation Standing Exercises [place] ball/table slides Standing Exercise Name 1. 12:00, 2. 10:00, 3. 2:00 Side left Equipment Used small blue tajik ball, elevated plinth Reps/Minutes 10 ea direction with small 5 hold at end range Comments pain free; cued initially for form Manual Therapy Treatment Consent Patient gave verbal consent for manual Yes treatment Soft Tissue Mobilization L shoulder Body Location biceps muscle belly Intensity/Depth Superficial Body Position Hooklying Comments Gentle circular soft tissue mobilization distal > proximal . Monitored for discomfort. Pt reports improvement in symptoms with mobilization Self-Care/Home Management Treatment Education Patient Education Joint Protection,Pain Management,Safety Other Education Educated on tissue repair/ healing timeline Educated also on correct execution with exercises demonstrated by pt PT-OP-T Assessment and Plan Start: 02/14/24 12:51 Freq: Status: Active Protocol: Document 02/14/24 14:31 NM (Rec: 02/14/24 15:47 NM [id number]) Physical Therapy Assessment Rehab Potential Rehabilitation Potential Good Evaluation Complexity Number of Personal Factors/Comorbidities 3 or More Number of Body Systems Impaired 4 or More Clinical Presentation at Evaluation Stable Impairments Impairments Activity Tolerance,Edema, Functional Activities, Functional Mobility,Gait, Integument,Pain,Posture,ROM, Sensation,Soft Tissue Mobility ,Strength,Transfers Other Concerns Barriers to Rehabilitation Pt lives alone and has to perform all ADLs with minimal help; does have a cement mason helper for prn household tasks and lifting. PMH of arthritis, back pain, neck pain, headaches, TBI/concussion, brain tumor removal (2014), joint replacement (L toe, B thumbs), weight loss surgery. Pt also has had a previous rotator cuff repair on same shoulder and is a smoker. Goals Four Impairment ADL ability impaired; quickdash score 18.2% impairment Penitentiary Goal (LTG) Pt will report <10% impairment on quickdash in order to demonstrate minimal limitations with household ADLs due to L shoulder LTG Duration 12 weeks Three Impairment sleeping impaired; waking 2x/ night Short Term Goal (STG) Pt will report that she is waking fewer than 1x/night due to L shoulder pain to demonstrate improved symptom management STG Duration 6 weeks Councilperson Goal (LTG) Pt will report that she is waking fewer than 3 nights/wk due to L shoulder pain to demonstrate improved symptom management LTG Duration 12 weeks Two Impairment L shoulder strength impaired: currently 3/5 [address] directions Short Term Goal (STG) Pt will improve L shoulder global strength to at least 4- /5 MMT globally in order to demonstrate improved strength for lifting and carrying ADLs STG Duration 8 weeks Penitentiary Goal (LTG) Pt will improve L shoulder global strength to at least 4+ /5 MMT globally in order to demonstrate improved strength for lifting and carrying ADLs LTG Duration 12 weeks One Impairment L shoulder AROM impaired: 140 deg flex and abd Penitentiary Goal (LTG) Pt will improve L shoulder flexion and abduction AROM to at least 150 deg or better in order to be comparable to LUE and to promote improved ROM for reaching, lifting, dressing/grooming ADLs LTG Duration 12 weeks Assessment Summary Assessment Pt is a 68 y.o. female presenting s/p L shoulder arthroscopy with previous rotator cuff revision and proximal biceps repair on . She is currently 6.5 weeks post-op; pt is not wearing sling and has been self- progressing through early stages of protocol, but does not perform most exercises correctly when asked to demonstrate. Pt's pain is managed well with ice/heat and topicals; she does report mild L biceps pain. She currently has limitations in L shoulder PROM, AROM, and strength. Pt's strength not formally assessed to protect repair, but pt is able to lift L arm independently against gravity without pain. At this time, pt has most discomfort at her L biceps muscle belly and along the anterior shoulder. Pt lives alone and has been performing ADLs/ grooming independently for several weeks. Initiated ROM and gentle muscle activation in early phases of protocol for correct execution. PT educated pt on exam findings and plan of care, including basic tissue healing timeline and protocol. Pt would benefit from skilled PT for progressing L shoulder mobility and strengthening per protocol in order to improve activity tolerance, symptom management, and quality of life. Physical Therapy Plan Frequency and Duration Frequency of Treatment 2x/Week Duration of treatment (weeks) 12 Plan of Care Start Date 02/14/24 Plan of Care End Date 05/11/24 Therapeutic Interventions Therapeutic Interventions Balance Training,Gait Training ,Home Exercise Program,Joint Mobilizations,Manual Therapy, Neuromuscular Re-education, Orthotic/Prosthetic Management ,Patient/Caregiver Education, Self-Care/Home Management, Sensory Integration,Soft Tissue Mobilization,Taping, Therapeutic Activities, Therapeutic Exercises Modalities Cold Pack/Ice Massage,Hot Packs Next Visit Focus/Plan Next Note Type Treatment Note Next Visit Plan Review HEP: shoulder retraction, supine serratus punch, tajik ball table roll outs. Initiated AAROM/AROM to maximize ROM Initiate banded isometrics vs wall, bent rows, pulleys, banded rows Progress per protocol as appropriate; revisit early stages of protocol for correct execution Manual: gentle shoulder mobilizations helga inf glide, soft tissue mobilization per surgeon note on 02/08/24, pt able to slowly progress into WBAT
--- NOTE | 2024-02-16 15:27 | PT.OTN ---
Current Diagnoses Pain in left shoulder (02/16/24) Stiffness of left shoulder, not elsewhere classified (02/16/24) Weakness (02/16/24) Strain of muscle(s) and tendon(s) of the rotator cuff of left shoulder, subsequent encounter (02/16/24) Physical Therapy Treatment Note PT-OP-A Visit Information Start: 02/14/24 12:51 Freq: Status: Active Protocol: Document 02/16/24 14:32 NM (Rec: 02/16/24 15:27 NM [id number]) Out-Patient Physical Therapy Visit Information Visit Information Visit Type Treatment Note Visit Start Time 14:32 Visit Stop Time 15:15 Visit Number 2 Evaluation Information Evaluation Date 02/14/24 Precautions Precautions s/p L shoulder arthroscopy with rotator cuff and proximal biceps tendon repair, DOS 12/28 6 weeks: 02/09/24, 8 weeks 02/22, 12 weeks 03/22/24 PMH brain tumor, joint replacement, back and neck pain, headaches, TBI/concusion PT-OP-B Current Condition Start: 02/14/24 12:51 Freq: Status: Active Protocol: Document 02/14/24 14:31 NM (Rec: 02/14/24 15:47 NM [id number]) Current Condition History of Current Condition Onset Date DOS 12/29/23 Current Complaints pain, limited strength and ROM , decreased ADLs History of Current Condition Pt has L shoulder arthroscopy and rotator cuff revision on . She states that they reinforced the rotator cuff and she had a tear in the ligaments away from the muscle in the biceps. Pt had a rotator repair in 2021, reports no complications during that time. She reports that retore her muscles after lifting a patio heater when lifting back in October 2023; states that she felt a a burning sensation. She went to see Dr. Melo Azevedo last week for follow up, reports that Dr in pleased except for not wearing sling; reports that pt stopped wearing her sling 3 weeks ago. Reports tenderness along anterior shoulder near biceps. Reports no falls. Prior to stopping wearing sling, she was wearing multimedia engineer (d/c from pillow sling at 2 weeks); no signs of infections. Pt reports that she has been going off of sheet protocol; reports no pain or discomfort. Pt reports that she has been actively using her arm since d/c sling. She lives alone. She is retired. She is icing for pain , not on any medication for pain. Pt reports that she has not really been lifting anything with her L arm except for carrying her clothes, which causes discomfort. She has a follow up with her surgeon in March. Pt is right handed. Reports difficulty mild difficulty with dressing, brushing dog Treatment Goals Patient/Caregiver Goals ROM, strength Current Functional Impairments (Reported) Functional Limitations- ADL's dressing, grooming Functional Limitations- Work/School retired Functional Limitations- Recreation/ brushing dog, lifting, Hobbies carrying laundry Functional Limitations- Other sleepinx/day (in bed: on L side and stomach), was sleeping in recliner or with body pillow PT-OP-C Subjective Start: 02/14/24 12:51 Freq: Status: Active Protocol: Document 02/16/24 14:32 NM (Rec: 02/16/24 15:27 NM [id number]) OP-PT Subjective Patient Comments Patient Comments Pt reports soreness in her L shoulder, especially at anterior biceps. Reports that thinks from HEP but not sure PT-OP-F Manual Assessment Start: 02/14/24 12:51 Freq: Status: Active Protocol: Document 02/14/24 14:31 NM (Rec: 02/14/24 15:47 NM [id number]) Manual Assessments Soft Tissue Assessment Soft Tissue Mobility Assessment Increased lat and upper trap/ levator scapula tightness. Tenderness with small bulge over distal/middle muscle belly of biceps, reduced with gentle mobilization Joint Mobility Assessment Joint Mobility Assessment Decreased inferior glide L shoulder. Increased anterior humeral positioning in both resting posture and during AROM Other Manual Assessments Other Manual Assessments Distal biceps tendon intact via hook test, no edita sign present for proximal biceps PT-OP-H Neuro Start: 02/14/24 12:51 Freq: Status: Active Protocol: Document 02/14/24 14:31 NM (Rec: 02/14/24 15:47 NM [id number]) Sensation Evaluation Comments Summary Comments BUE equally intact to light touch sensation PT-OP-J Posture/Palpation/Skin Start: 02/14/24 12:51 Freq: Status: Active Protocol: Document 02/14/24 14:31 NM (Rec: 02/14/24 15:47 NM [id number]) Posture Evaluation Position Standing Head/C-Spine Posture Forward Head Shoulder Posture (L) Rounded,(R) Rounded,(L) Forward,(R) Forward Scapula Posture (R) Neutral,(L) Retracted,(R) Elevated Arm Posture (L) Internally Rotated,(R) Internally Rotated Pelvis Posture Anteriorly Tilted Knee Posture (L) Genu Valgus,(R) Genu Valgus Palpation Assessment Location L shoulder Palpation Details Tenderness along biceps muscle belly No tenderness along rotator cuff muscles, incisions, rhomboids, periscapulars Increased tightness of upper trap, levator scapula Skin Assessment Incisional Assessment Incision Appearance/Comments Scars intact, healing without signs of infection. Multiple scars present along anterior, lateral, and posterior shoulder. Mild adhesions of anterior shoulder scars. One slight open scab/wound (not scar) on posterior shoulder. Keloid scarring visible from previous surgeries PT-OP-K Range of Motion Start: 02/14/24 12:51 Freq: Status: Active Protocol: Document 02/14/24 14:31 NM (Rec: 02/14/24 15:47 NM [id number]) Shoulder Goniometric Range of Motion Shoulder Right Flexion 150 Extension 60 Abduction 170 External Rotation at 90 degrees 80 Abduction External Rotation at 0 degrees Abduction 80 Internal Rotation Behind Back (text) T7 Comments ER C7 Left AROM Flexion 140 Abduction 140 External Rotation at 0 degrees Abduction 50 Internal Rotation Behind Back (text) T10 Comments discomfort with abduction; tight with ER ER to occiput Left PROM Flexion 150 Abduction 110 External Rotation at 0 degrees Abduction 75 Elbow/Forearm Range of Motion Elbow/Forearm Right Elbow Flexion (degrees) 130 Elbow Extension (degrees) 3 Left Elbow Flexion (degrees) 125 Elbow Extension (degrees) 5 Comments Discomfort reported with end range flexion PT-OP-M Strength Start: 02/14/24 12:51 Freq: Status: Active Protocol: Document 02/14/24 14:31 NM (Rec: 02/14/24 15:47 NM [id number]) Shoulder Strength Shoulder Manual Muscle Testing Right Flexion 4 Good Abduction (C5) 4 Good External Rotation 4 Good Internal Rotation 4 Good Left Flexion 3 Fair Abduction (C5) 3 Fair External Rotation 3 Fair Comments Did not formally assess strength due to precautions; pt able to lift arm against gravity through ROM Elbow/Forearm Strength Elbow and Forearm Manual Muscle Testing Right Flexion (C6) 4 Good Extension (C7) 4 Good Left Flexion (C6) 3 Fair Extension (C7) 3 Fair Comments Did not formally assess strength due to precautions; pt able to lift arm against gravity through ROM PT-OP-Q Treatments Start: 02/14/24 12:51 Freq: Status: Active Protocol: Document 02/16/24 14:32 NM (Rec: 02/16/24 15:27 NM [id number]) Therapeutic Exercises Supine Exercises AAROM Side left Equipment Used R assist L with dowel Reps/Minutes 10 Comments cued to relax L shoulder serratus press Supine Exercise Name HEP review Side left Resistance AROM Reps/Minutes 2x10 with small hold at end range Comments cued for not UT comp, form to promote protraction Sitting Exercises pulleys Sitting Exercise Name 1. flexion, 2. abduction Side left Equipment Used mirror for feedback Reps/Minutes 1 min ea Comments feels good scapular retraction Sitting Exercise Name HEP review: retraction and depression Side bilateral Reps/Minutes 10x5 Comments cueing to limit shoulder elevation Standing Exercises isometrics Standing Exercise Name HEP:1. flex, 2. ext, 3. abd., 4. add, 5. ER,. 6. IR Side left Equipment Used pillow for ext (not past neutral) and abd Reps/Minutes 5x3 ea into PT hand, 10x3 hold into towel at wall Comments cued for scapular setting prior, for form; submaximal Manual Therapy Treatment Consent Patient gave verbal consent for manual Yes treatment Soft Tissue Mobilization L shoulder Body Location biceps muscle belly, post cuff , lat, pec, UT, LS Mobilization Type Rolling,Strumming Intensity/Depth Superficial Body Position Hooklying Comments Tolerates well, monitored for pain. Less tenderness along biceps muscle belly and proximal biceps. Increased restrictions of pec and lat. Joint Mobilizations L scapular Direction adduction/retraction, elevation/depression Grade II Body Position Sidelying Reps/Duration 20 ea L GHJ Direction PA, inf Grade II Body Position Hooklying Reps/Duration 2x30 ea Comments Improved inferior glide today. Monitored for pain PT-OP-T Assessment and Plan Start: 02/14/24 12:51 Freq: Status: Active Protocol: Document 02/16/24 14:32 NM (Rec: 02/16/24 15:27 NM [id number]) Physical Therapy Assessment Goals Four Impairment ADL ability impaired; quickdash score 18.2% impairment Custodial Goal (LTG) Pt will report <10% impairment on quickdash in order to demonstrate minimal limitations with household ADLs due to L shoulder LTG Duration 12 weeks Three Impairment sleeping impaired; waking 2x/ night Short Term Goal (STG) Pt will report that she is waking fewer than 1x/night due to L shoulder pain to demonstrate improved symptom management STG Duration 6 weeks Custodial Goal (LTG) Pt will report that she is waking fewer than 3 nights/wk due to L shoulder pain to demonstrate improved symptom management LTG Duration 12 weeks Two Impairment L shoulder strength impaired: currently 3/5 all directions Short Term Goal (STG) Pt will improve L shoulder global strength to at least 4- /5 MMT globally in order to demonstrate improved strength for lifting and carrying ADLs STG Duration 8 weeks Custodial Goal (LTG) Pt will improve L shoulder global strength to at least 4+ /5 MMT globally in order to demonstrate improved strength for lifting and carrying ADLs LTG Duration 12 weeks One Impairment L shoulder AROM impaired: 140 deg flex and abd [employer] Director Welfare Goal (LTG) Pt will improve L shoulder flexion and abduction AROM to at least 150 deg or better in order to be comparable to LUE and to promote improved ROM for reaching, lifting, dressing/grooming ADLs LTG Duration 12 weeks Assessment Summary Assessment Pt tolerated session well; currently 6.5 weeks post op. Does report 1 instance of clicking with supine AAROM using dowel, but resolves with scapular setting prior to shoulder flexion. Initiated shoulder isometrics for muscle activation. Cues required for correct submaximal force, correct execution, and to maintain good shoulder positioning, especially with extension. Pt improved L shoulder flexion and abduction AROM from 130 deg at start of session to 140 deg at end of session. Less biceps tenderness and good feedback to soft tissue mobilization. Pt would benefit from skilled PT for L shoulder mobility and strengthening per protocol in order to improve activity tolerance for reaching/lifting ADLs. Physical Therapy Plan Frequency and Duration Frequency of Treatment 2x/Week Duration of treatment (weeks) 12 Plan of Care Start Date 02/14/24 Plan of Care End Date 05/11/24 Therapeutic Interventions Therapeutic Interventions Balance Training,Gait Training ,Home Exercise Program,Joint Mobilizations,Manual Therapy, Neuromuscular Re-education, Orthotic/Prosthetic Management ,Patient/Caregiver Education, Self-Care/Home Management, Sensory Integration,Soft Tissue Mobilization,Taping, Therapeutic Activities, Therapeutic Exercises Modalities Cold Pack/Ice Massage,Hot Packs Next Visit Focus/Plan Next Note Type Treatment Note Next Visit Plan Review HEP: isometrics. Initiated AAROM/AROM to maximize ROM Initiate banded isometrics vs wall, bent rows, pulleys, banded rows Progress per protocol as appropriate; revisit early stages of protocol for correct execution Manual: gentle shoulder mobilizations helga inf glide, soft tissue mobilization per surgeon note on 02/08/24, pt able to slowly progress into WBAT
--- NOTE | 2024-02-24 12:53 | PT.OTN ---
Current Diagnoses Pain in left shoulder (02/24/24) Stiffness of left shoulder, not elsewhere classified (02/24/24) Weakness (02/24/24) Strain of muscle(s) and tendon(s) of the rotator cuff of left shoulder, subsequent encounter (02/24/24) Physical Therapy Treatment Note PT-OP-A Visit Information Start: 02/14/24 12:51 Freq: Status: Active Protocol: Document 02/24/24 10:03 AB (Rec: 02/24/24 12:53 AB [id number]) Out-Patient Physical Therapy Visit Information Visit Information Visit Type Treatment Note Visit Start Time 11:35 Visit Stop Time 12:21 Visit Number 3 Number of GRAVEDIGGER Visits 1 Evaluation Information Evaluation Date 02/14/24 Precautions Precautions s/p L shoulder arthroscopy with rotator cuff and proximal biceps tendon repair, DOS 12/28 6 weeks: 02/09/24, 8 weeks 02/22, 12 weeks 03/22/24 PMH brain tumor, joint replacement, back and neck pain, headaches, TBI/concusion PT-OP-B Current Condition Start: 02/14/24 12:51 Freq: Status: Active Protocol: Document 02/14/24 14:31 NM (Rec: 02/14/24 15:47 NM [id number]) Current Condition History of Current Condition Onset Date DOS 12/29/23 Current Complaints pain, limited strength and ROM , decreased ADLs History of Current Condition Pt has L shoulder arthroscopy and rotator cuff revision on . She states that they reinforced the rotator cuff and she had a tear in the ligaments away from the muscle in the biceps. Pt had a rotator repair in 2021, reports no complications during that time. She reports that retore her muscles after lifting a patio heater when lifting back in October 2023; states that she felt a a burning sensation. She went to see Dr. Melo Azevedo last week for follow up, reports that Dr in pleased except for not wearing sling; reports that pt stopped wearing her sling 3 weeks ago. Reports tenderness along anterior shoulder near biceps. Reports no falls. 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 Pt reports that she has been going off of sheet protocol; reports no pain or discomfort. Pt reports that she has been actively using her arm since d/c sling. She lives alone. She is retired. She is icing for pain , not on any medication for pain. Pt reports that she has not really been lifting anything with her L arm except for carrying her clothes, which causes discomfort. She has a follow up with her surgeon in March. Pt is right handed. Reports difficulty mild difficulty with dressing, brushing dog Treatment Goals Patient/Caregiver Goals ROM, strength Current Functional Impairments (Reported) Functional Limitations- ADL's dressing, grooming Functional Limitations- Work/School retired Functional Limitations- Recreation/ brushing dog, lifting, Hobbies carrying laundry Functional Limitations- Other sleepinx/day (in bed: on L side and stomach), was sleeping in recliner or with body pillow PT-OP-C Subjective Start: 02/14/24 12:51 Freq: Status: Active Protocol: Document 02/24/24 10:03 AB (Rec: 02/24/24 12:53 AB [id number]) OP-PT Subjective Patient Comments Patient Comments Chelita reports increased pain left shoulder, attributes to biceps. Patient reports the exercises are going good, would say they are sucessful. AROM 153 deg AROM right shoulder flexion. Patient into session with [employer] [place] extra strength SLOANE murry, reporting this is what she uses for pain . PT-OP-F Manual Assessment Start: 02/14/24 12:51 Freq: Status: Active Protocol: Document 02/14/24 14:31 NM (Rec: 02/14/24 15:47 NM [id number]) Manual Assessments Soft Tissue Assessment Soft Tissue Mobility Assessment Increased lat and upper trap/ levator scapula tightness. Tenderness with small bulge over distal/middle muscle belly of biceps, reduced with gentle mobilization Joint Mobility Assessment Joint Mobility Assessment Decreased inferior glide L shoulder. Increased anterior humeral positioning in both resting posture and during AROM Other Manual Assessments Other Manual Assessments Distal biceps tendon intact via hook test, no edita sign present for proximal biceps PT-OP-H Neuro Start: 02/14/24 12:51 Freq: Status: Active Protocol: Document 02/14/24 14:31 NM (Rec: 02/14/24 15:47 NM [id number]) Sensation Evaluation Comments Summary Comments BUE equally intact to light touch sensation PT-OP-J Posture/Palpation/Skin Start: 02/14/24 12:51 Freq: Status: Active Protocol: Document 02/14/24 14:31 NM (Rec: 02/14/24 15:47 NM [id number]) Posture Evaluation Position Standing Head/C-Spine Posture Forward Head Shoulder Posture (L) Rounded,(R) Rounded,(L) Forward,(R) Forward Scapula Posture (R) Neutral,(L) Retracted,(R) Elevated Arm Posture (L) Internally Rotated,(R) Internally Rotated Pelvis Posture Anteriorly Tilted Knee Posture (L) Genu Valgus,(R) Genu Valgus Palpation Assessment Location L shoulder Palpation Details Tenderness along biceps muscle belly No tenderness along rotator cuff muscles, incisions, rhomboids, periscapulars Increased tightness of upper trap, levator scapula Skin Assessment Incisional Assessment Incision Appearance/Comments Scars intact, healing without signs of infection. Multiple scars present along anterior, lateral, and posterior shoulder. Mild adhesions of anterior shoulder scars. One slight open scab/wound (not scar) on posterior shoulder. Keloid scarring visible from previous surgeries PT-OP-K Range of Motion Start: 02/14/24 12:51 Freq: Status: Active Protocol: Document 02/14/24 14:31 NM (Rec: 02/14/24 15:47 NM [id number]) Shoulder Goniometric Range of Motion Shoulder Right Flexion 150 Extension 60 Abduction 170 External Rotation at 90 degrees 80 Abduction External Rotation at 0 degrees Abduction 80 Internal Rotation Behind Back (text) T7 Comments ER C7 Left AROM Flexion 140 Abduction 140 External Rotation at 0 degrees Abduction 50 Internal Rotation Behind Back (text) T10 Comments discomfort with abduction; tight with ER ER to occiput Left PROM Flexion 150 Abduction 110 External Rotation at 0 degrees Abduction 75 Elbow/Forearm Range of Motion Elbow/Forearm Right Elbow Flexion (degrees) 130 Elbow Extension (degrees) 3 Left Elbow Flexion (degrees) 125 Elbow Extension (degrees) 5 Comments Discomfort reported with end range flexion PT-OP-M Strength Start: 02/14/24 12:51 Freq: Status: Active Protocol: Document 02/14/24 14:31 NM (Rec: 02/14/24 15:47 NM [id number]) Shoulder Strength Shoulder Manual Muscle Testing Right Flexion 4 Good Abduction (C5) 4 Good External Rotation 4 Good Internal Rotation 4 Good Left Flexion 3 Fair Abduction (C5) 3 Fair External Rotation 3 Fair Comments Did not formally assess strength due to precautions; pt able to lift arm against gravity through ROM Elbow/Forearm Strength Elbow and Forearm Manual Muscle Testing Right Flexion (C6) 4 Good Extension (C7) 4 Good Left Flexion (C6) 3 Fair Extension (C7) 3 Fair Comments Did not formally assess strength due to precautions; pt able to lift arm against gravity through ROM PT-OP-Q Treatments Start: 02/14/24 12:51 Freq: Status: Active Protocol: Document 02/24/24 10:03 AB (Rec: 02/24/24 12:53 AB [id number]) Therapeutic Exercises Supine Exercises supine shoulder flexion Supine Exercise Name AROM Side bilateral Reps/Minutes X3 Comments not casie AAROM Side left Equipment Used R assist L with dowel Reps/Minutes 10 Comments monitored for pain serratus press Supine Exercise Name HEP review Side left Resistance AROM Reps/Minutes 2x10 with small hold at end range Standing Exercises scapular strengthening Standing Exercise Name 1. row 2. scapular depression HEP Side bilateral Resistance level one light blue band Reps/Minutes X15 each Comments verbal and visual cues isometrics Standing Exercise Name HEP Isometric reactive 1. ER 2 . IR Side left Equipment Used pillow for ext (not past neutral) and abd Reps/Minutes X10 each direction Comments monitored for pain Manual Therapy Treatment Soft Tissue Mobilization L shoulder Body Location muscle belly, post cuff, lat, pec, UT, LS Mobilization Type Rolling,Strumming Intensity/Depth Superficial Body Position Hooklying Comments Tolerates well, monitored for pain. Less tenderness along biceps muscle belly and proximal biceps. Increased restrictions of pec and lat. Joint Mobilizations L scapular Direction adduction/retraction, elevation/depression Grade II Body Position Sidelying Reps/Duration 20 ea L GHJ Direction ant to post, inf Grade II Body Position Hooklying Reps/Duration 3x10 ea Comments Improved inferior glide today. Monitored for pain Manual Techniques Contract relax Type into ER Body Location left shoulder Body Position Hooklying Reps/Duration X2 Comments very gentle PT-OP-T Assessment and Plan Start: 02/14/24 12:51 Freq: Status: Active Protocol: Document 02/24/24 10:03 AB (Rec: 02/24/24 12:53 AB [id number]) Physical Therapy Assessment Goals Four Impairment ADL ability impaired; quickdash score 18.2% impairment Youth Coordinator Goal (LTG) Pt will report <10% impairment on quickdash in order to demonstrate minimal limitations with household ADLs due to L shoulder LTG Duration 12 weeks Three Impairment sleeping impaired; waking 2x/ night Short Term Goal (STG) Pt will report that she is waking fewer than 1x/night due to L shoulder pain to demonstrate improved symptom management STG Duration 6 weeks Youth Coordinator Goal (LTG) Pt will report that she is waking fewer than 3 nights/wk due to L shoulder pain to demonstrate improved symptom management LTG Duration 12 weeks Two Impairment L shoulder strength impaired: currently 3/5 all directions Short Term Goal (STG) Pt will improve L shoulder global strength to at least 4- /5 MMT globally in order to demonstrate improved strength for lifting and carrying ADLs STG Duration 8 weeks Youth Coordinator Goal (LTG) Pt will improve L shoulder global strength to at least 4+ /5 MMT globally in order to demonstrate improved strength for lifting and carrying ADLs LTG Duration 12 weeks One Impairment L shoulder AROM impaired: 140 deg flex and abd Snf Goal (LTG) Pt will improve L shoulder flexion and abduction AROM to at least 150 deg or better in order to be comparable to LUE and to promote improved ROM for reaching, lifting, dressing/grooming ADLs LTG Duration 12 weeks Assessment Summary Assessment Patient 8 weeks one day post op. AROM left shoulder continues to be limited. Good casie to isometric reactives. Patient reports increased pain donning jacket left shoulder, but no pain end of session. Physical Therapy Plan Frequency and Duration Frequency of Treatment 2x/Week Duration of treatment (weeks) 12 Plan of Care Start Date 02/14/24 Plan of Care End Date 05/11/24 Next Visit Focus/Plan Next Note Type Treatment Note Next Visit Plan Review HEP: isometrics. Initiated AAROM/AROM to maximize ROM Initiate banded isometrics vs wall, bent rows, pulleys, banded rows Progress per protocol as appropriate; revisit early stages of protocol for correct execution Manual: gentle shoulder mobilizations helga inf glide, soft tissue mobilization per surgeon note on 02/08/24, pt able to slowly progress into WBAT
--- NOTE | 2024-02-28 10:35 | PT.OTN ---
Current Diagnoses Pain in left shoulder (02/28/24) Stiffness of left shoulder, not elsewhere classified (02/28/24) Weakness (02/28/24) Strain of muscle(s) and tendon(s) of the rotator cuff of left shoulder, subsequent encounter (02/28/24) Physical Therapy Treatment Note PT-OP-A Visit Information Start: 02/14/24 12:51 Freq: Status: Active Protocol: Document 02/28/24 09:44 NM (Rec: 02/28/24 10:35 NM [id number]) Out-Patient Physical Therapy Visit Information Visit Information Visit Type Treatment Note Visit Start Time 09:45 Visit Stop Time 10:30 Visit Number 4 Evaluation Information Evaluation Date 02/14/24 Precautions Precautions s/p L shoulder arthroscopy with rotator cuff and proximal biceps tendon repair, DOS 12/28 6 weeks: 02/09/24, 8 weeks 02/22, 12 weeks 03/22/24 PMH brain tumor, joint replacement, back and neck pain, headaches, TBI/concusion PT-OP-B Current Condition Start: 02/14/24 12:51 Freq: Status: Active Protocol: Document 02/14/24 14:31 NM (Rec: 02/14/24 15:47 NM [id number]) Current Condition History of Current Condition Onset Date DOS 12/29/23 Current Complaints pain, limited strength and ROM , decreased ADLs History of Current Condition Pt has L shoulder arthroscopy and rotator cuff revision on . She states that they reinforced the rotator cuff and she had a tear in the ligaments away from the muscle in the biceps. Pt had a rotator repair in 2021, reports no complications during that time. She reports that retore her muscles after lifting a patio heater when lifting back in October 2023; states that she felt a a burning sensation. She went to see Dr. Melo Azevedo last week for follow up, reports that Dr in pleased except for not wearing sling; reports that pt stopped wearing her sling 3 weeks ago. Reports tenderness along anterior shoulder near biceps. Reports no falls. Prior to stopping wearing sling, she was wearing [employer] (d/c from pillow sling at 2 weeks); no signs of infections. Pt reports that she has been going off of sheet protocol; reports no pain or discomfort. Pt reports that she has been actively using her arm since d/c sling. She lives alone. She is retired. She is icing for pain , not on any medication for pain. Pt reports that she has not really been lifting anything with her L arm except for carrying her clothes, which causes discomfort. She has a follow up with her surgeon in March. Pt is right handed. Reports difficulty mild difficulty with dressing, brushing dog Treatment Goals Patient/Caregiver Goals ROM, strength Current Functional Impairments (Reported) Functional Limitations- ADL's dressing, grooming Functional Limitations- Work/School retired Functional Limitations- Recreation/ brushing dog, lifting, Hobbies carrying laundry Functional Limitations- Other sleepinx/day (in bed: on L side and stomach), was sleeping in recliner or with body pillow PT-OP-C Subjective Start: 02/14/24 12:51 Freq: Status: Active Protocol: Document 02/28/24 09:44 NM (Rec: 02/28/24 10:35 NM [id number]) OP-PT Subjective Patient Comments Patient Comments Pt reports that she is achy all over (back and thigh), voice is gone but thinks from yelling at football game. States started yesterday. Reports shoulder is not more achy. She reports that the exercises cause some achiness but not pain, reports achiness of 5/10 along L lateral shoulder. She did states that the hitch is the rotator cuff, states that she the catching occurs and she feels it more but is doing more things. Denies any sharp pain, weakness, other catching, PT-OP-F Manual Assessment Start: 02/14/24 12:51 Freq: Status: Active Protocol: Document 02/14/24 14:31 NM (Rec: 02/14/24 15:47 NM [id number]) Manual Assessments Soft Tissue Assessment Soft Tissue Mobility Assessment Increased lat and upper trap/ levator scapula tightness. Tenderness with small bulge over distal/middle muscle belly of biceps, reduced with gentle mobilization Joint Mobility Assessment Joint Mobility Assessment Decreased inferior glide L shoulder. Increased anterior humeral positioning in both resting posture and during AROM Other Manual Assessments Other Manual Assessments Distal biceps tendon intact via hook test, no edita sign present for proximal biceps PT-OP-H Neuro Start: 02/14/24 12:51 Freq: Status: Active Protocol: Document 02/14/24 14:31 NM (Rec: 02/14/24 15:47 NM [id number]) Sensation Evaluation Comments Summary Comments BUE equally intact to light touch sensation PT-OP-J Posture/Palpation/Skin Start: 02/14/24 12:51 Freq: Status: Active Protocol: Document 02/14/24 14:31 NM (Rec: 02/14/24 15:47 NM [id number]) Posture Evaluation Position Standing Head/C-Spine Posture Forward Head Shoulder Posture (L) Rounded,(R) Rounded,(L) Forward,(R) Forward Scapula Posture (R) Neutral,(L) Retracted,(R) Elevated Arm Posture (L) Internally Rotated,(R) Internally Rotated Pelvis Posture Anteriorly Tilted Knee Posture (L) Genu Valgus,(R) Genu Valgus Palpation Assessment Location L shoulder Palpation Details Tenderness along biceps muscle belly No tenderness along rotator cuff muscles, incisions, rhomboids, periscapulars Increased tightness of upper trap, levator scapula Skin Assessment Incisional Assessment Incision Appearance/Comments Scars intact, healing without signs of infection. Multiple scars present along anterior, lateral, and posterior shoulder. Mild adhesions of anterior shoulder scars. One slight open scab/wound (not scar) on posterior shoulder. Keloid scarring visible from previous surgeries PT-OP-K Range of Motion Start: 02/14/24 12:51 Freq: Status: Active Protocol: Document 02/14/24 14:31 NM (Rec: 02/14/24 15:47 NM [id number]) Shoulder Goniometric Range of Motion Shoulder Right Flexion 150 Extension 60 Abduction 170 External Rotation at 90 degrees 80 Abduction External Rotation at 0 degrees Abduction 80 Internal Rotation Behind Back (text) T7 Comments ER C7 Left AROM Flexion 140 Abduction 140 External Rotation at 0 degrees Abduction 50 Internal Rotation Behind Back (text) T10 Comments discomfort with abduction; tight with ER ER to occiput Left PROM Flexion 150 Abduction 110 External Rotation at 0 degrees Abduction 75 Elbow/Forearm Range of Motion Elbow/Forearm Right Elbow Flexion (degrees) 130 Elbow Extension (degrees) 3 Left Elbow Flexion (degrees) 125 Elbow Extension (degrees) 5 Comments Discomfort reported with end range flexion PT-OP-M Strength Start: 02/14/24 12:51 Freq: Status: Active Protocol: Document 02/14/24 14:31 NM (Rec: 02/14/24 15:47 NM [id number]) Shoulder Strength Shoulder Manual Muscle Testing Right Flexion 4 Good Abduction (C5) 4 Good External Rotation 4 Good Internal Rotation 4 Good Left Flexion 3 Fair Abduction (C5) 3 Fair External Rotation 3 Fair Comments Did not formally assess strength due to precautions; pt able to lift arm against gravity through ROM Elbow/Forearm Strength Elbow and Forearm Manual Muscle Testing Right Flexion (C6) 4 Good Extension (C7) 4 Good Left Flexion (C6) 3 Fair Extension (C7) 3 Fair Comments Did not formally assess strength due to precautions; pt able to lift arm against gravity through ROM PT-OP-Q Treatments Start: 02/14/24 12:51 Freq: Status: Active Protocol: Document 02/28/24 09:44 NM (Rec: 02/28/24 10:35 NM [id number]) Therapeutic Exercises Sidelying Exercises HABD Sidelying Exercise Name elbow flexed Side left Resistance AROM Reps/Minutes 10 Comments cues for form, execution; pain free ER Side left Resistance AROM Equipment Used towel roll between arm/elbow; scapular setting 1st Reps/Minutes 2x10 Comments cued scap retract/post setting ; pain free in ant shldr if scap correct Standing Exercises wall push up plus Standing Exercise Name modified plank plus (serratus) Side bilateral Reps/Minutes 10 Comments tactile cues for scapular setting isometrics Standing Exercise Name HEP review Isometric reactive 1. ER 2. IR, 3. flex (trialed) Side left Resistance level 1 band Reps/Minutes 2x10 each direction except ER 1x10 d/t s/l ER; all pain free Comments monitored for pain; verbal/ tactile cues for scap position , form Manual Therapy Treatment Consent Patient gave verbal consent for manual Yes treatment Soft Tissue Mobilization L shoulder Body Location post cuff, lat, pec, UT, LS Mobilization Type Rolling,Strumming Intensity/Depth Superficial Body Position Hooklying Comments Tolerates well, monitored for pain. Increased restrictions of pec and lat, rhomboid Joint Mobilizations L scapular Direction adduction/retraction, elevation/depression Grade II Body Position Sidelying Reps/Duration 2x30 ea L GHJ Direction post, inf Grade II Body Position Hooklying Reps/Duration 4x30 ea Comments Improved post glide and humeral positioning post mobilization. Monitored for pain Self-Care/Home Management Treatment Education Other Education Educated on donning/doffing jacket with L arm first to reduce rotator cuff strain. Educated pt to inform PT and surgeon if popping/clicking/ catching occurs in shoulder PT-OP-T Assessment and Plan Start: 02/14/24 12:51 Freq: Status: Active Protocol: Document 02/28/24 09:44 NM (Rec: 02/28/24 10:35 NM [id number]) Physical Therapy Assessment Goals Four Impairment ADL ability impaired; quickdash score 18.2% impairment Axminster Weaver Goal (LTG) Pt will report <10% impairment on quickdash in order to demonstrate minimal limitations with household ADLs due to L shoulder LTG Duration 12 weeks Three Impairment sleeping impaired; waking 2x/ night Short Term Goal (STG) Pt will report that she is waking fewer than 1x/night due to L shoulder pain to demonstrate improved symptom management STG Duration 6 weeks Axminster Weaver Goal (LTG) Pt will report that she is waking fewer than 3 nights/wk due to L shoulder pain to demonstrate improved symptom management LTG Duration 12 weeks Two Impairment L shoulder strength impaired: currently 3/5 all directions Short Term Goal (STG) Pt will improve L shoulder global strength to at least 4- /5 MMT globally in order to demonstrate improved strength for lifting and carrying ADLs STG Duration 8 weeks Axminster Weaver Goal (LTG) Pt will improve L shoulder global strength to at least 4+ /5 MMT globally in order to demonstrate improved strength for lifting and carrying ADLs LTG Duration 12 weeks One Impairment L shoulder AROM impaired: 140 deg flex and abd Axminster Weaver Goal (LTG) Pt will improve L shoulder flexion and abduction AROM to at least 150 deg or better in order to be comparable to LUE and to promote improved ROM for reaching, lifting, dressing/grooming ADLs LTG Duration 12 weeks Assessment Summary Assessment Pt currently 8 weeks post op. Pt does not have any L shoulder pain during session. L shoulder AROM at end of session 160 deg flex and abd, 70 deg ER at 0 deg abd. Due to overall achiness and soreness in L shoulder, did not progress isometric reactives other than more reps. Trialed shoulder flexion banded isometric reactive; no pain for pt but requires moderate cues to prevent forward/ rounded shoulders. Trialed shoulder ER and HABD with elbow flexed to initiate gentle rotator cuff activation per protocol. Moderate cues required for scapular positioning; no pain when performed with correct alignment. Trialed gentle plank plus for serratus activation; cueing for form but initially demos good scapular protraction. Pt would benefit from skilled PT for L shoulder AROM and strengthening per protocol in order to improve ability to participate in lifting/ reaching/dressing ADLs. Physical Therapy Plan Frequency and Duration Frequency of Treatment 2x/Week Duration of treatment (weeks) 12 Plan of Care Start Date 02/14/24 Plan of Care End Date 05/11/24 Therapeutic Interventions Therapeutic Interventions Balance Training,Gait Training ,Home Exercise Program,Joint Mobilizations,Manual Therapy, Neuromuscular Re-education, Orthotic/Prosthetic Management ,Patient/Caregiver Education, Self-Care/Home Management, Sensory Integration,Soft Tissue Mobilization,Taping, Therapeutic Activities, Therapeutic Exercises Modalities Cold Pack/Ice Massage,Hot Packs Next Visit Focus/Plan Next Note Type Treatment Note Next Visit Plan Review HEP: isometrics and update HEP. Assess casie to sidelying ER and HABD, wall plank plus. Progress # reps of banded ER/ IR/flex vs increase band resistance. When appropriate progress to isontonics Progress per protocol as appropriate; revisit early stages of protocol for correct execution Manual: gentle shoulder mobilizations helga inf glide, soft tissue mobilization per surgeon note on 02/08/24, pt able to slowly progress into WBAT
--- NOTE | 2024-03-02 12:35 | PT.OTN ---
Current Diagnoses Pain in left shoulder (03/02/24) Stiffness of left shoulder, not elsewhere classified (03/02/24) Weakness (03/02/24) Strain of muscle(s) and tendon(s) of the rotator cuff of left shoulder, subsequent encounter (03/02/24) Physical Therapy Treatment Note PT-OP-A Visit Information Start: 02/14/24 12:51 Freq: Status: Active Protocol: Document 03/02/24 10:43 AB (Rec: 03/02/24 12:35 AB [id number]) Out-Patient Physical Therapy Visit Information Visit Information Visit Type Treatment Note Visit Start Time 11:35 Visit Stop Time 12:04 Visit Number 4 Number of HE[employer] W[employer]ER Visits 1 Evaluation Information Evaluation Date 02/14/24 Precautions Precautions s/p L shoulder arthroscopy with rotator cuff and proximal biceps tendon repair, DOS 12/28 6 weeks: 02/09/24, 8 weeks 02/22, 12 weeks 03/22/24 PMH brain tumor, joint replacement, back and neck pain, headaches, TBI/concusion PT-OP-B Current Condition Start: 02/14/24 12:51 Freq: Status: Active Protocol: Document 02/14/24 14:31 NM (Rec: 02/14/24 15:47 NM [id number]) Current Condition History of Current Condition Onset Date DOS 12/29/23 Current Complaints pain, limited strength and ROM , decreased ADLs History of Current Condition Pt has L shoulder arthroscopy and rotator cuff revision on . She states that they reinforced the rotator cuff and she had a tear in the ligaments away from the muscle in the biceps. Pt had a rotator repair in 2021, reports no complications during that time. She reports that retore her muscles after lifting a patio heater when lifting back in October 2023; states that she felt a a burning sensation. She went to see Dr. Melo Azevedo last week for follow up, reports that Dr in pleased except for not wearing sling; reports that pt stopped wearing her sling 3 weeks ago. Reports tenderness along anterior shoulder near biceps. Reports no falls. Prior to stopping wearing sling, she was wearing time clock [employer] (d/c from pillow sling at 2 weeks); no signs of infections. Pt reports that she has been going off of sheet protocol; reports no pain or discomfort. Pt reports that she has been actively using her arm since d/c sling. She lives alone. She is retired. She is icing for pain , not on any medication for pain. Pt reports that she has not really been lifting anything with her L arm except for carrying her clothes, which causes discomfort. She has a follow up with her surgeon in March. Pt is right handed. Reports difficulty mild difficulty with dressing, brushing dog Treatment Goals Patient/Caregiver Goals ROM, strength Current Functional Impairments (Reported) Functional Limitations- ADL's dressing, grooming Functional Limitations- Work/School retired Functional Limitations- Recreation/ brushing dog, lifting, Hobbies carrying laundry Functional Limitations- Other sleepinx/day (in bed: on L side and stomach), was sleeping in recliner or with body pillow PT-OP-C Subjective Start: 02/14/24 12:51 Freq: Status: Active Protocol: Document 03/02/24 10:43 AB (Rec: 03/02/24 12:35 AB [id number]) OP-PT Subjective Patient Comments Patient Comments Patient reports the shoulder is about the same, thinks she may have a little more movement in it. Patient reports bicep is still sore - 09/29 start of session. AROM 145 deg flexion left shoulder start of session. left shoulder ER 45 deg at ~40 deg abd PROM PT-OP-F Manual Assessment Start: 02/14/24 12:51 Freq: Status: Active Protocol: Document 02/14/24 14:31 NM (Rec: 02/14/24 15:47 NM [id number]) Manual Assessments Soft Tissue Assessment Soft Tissue Mobility Assessment Increased lat and upper trap/ levator scapula tightness. Tenderness with small bulge over distal/middle muscle belly of biceps, reduced with gentle mobilization Joint Mobility Assessment Joint Mobility Assessment Decreased inferior glide L shoulder. Increased anterior humeral positioning in both resting posture and during AROM Other Manual Assessments Other Manual Assessments Distal biceps tendon intact via hook test, no edita sign present for proximal biceps PT-OP-H Neuro Start: 02/14/24 12:51 Freq: Status: Active Protocol: Document 02/14/24 14:31 NM (Rec: 02/14/24 15:47 NM [id number]) Sensation Evaluation Comments Summary Comments BUE equally intact to light touch sensation PT-OP-J Posture/Palpation/Skin Start: 02/14/24 12:51 Freq: Status: Active Protocol: Document 02/14/24 14:31 NM (Rec: 02/14/24 15:47 NM [id number]) Posture Evaluation Position Standing Head/C-Spine Posture Forward Head Shoulder Posture (L) Rounded,(R) Rounded,(L) Forward,(R) Forward Scapula Posture (R) Neutral,(L) Retracted,(R) Elevated Arm Posture (L) Internally Rotated,(R) Internally Rotated Pelvis Posture Anteriorly Tilted Knee Posture (L) Genu Valgus,(R) Genu Valgus Palpation Assessment Location L shoulder Palpation Details Tenderness along biceps muscle belly No tenderness along rotator cuff muscles, incisions, rhomboids, periscapulars Increased tightness of upper trap, levator scapula Skin Assessment Incisional Assessment Incision Appearance/Comments Scars intact, healing without signs of infection. Multiple scars present along anterior, lateral, and posterior shoulder. Mild adhesions of anterior shoulder scars. One slight open scab/wound (not scar) on posterior shoulder. Keloid scarring visible from previous surgeries PT-OP-K Range of Motion Start: 02/14/24 12:51 Freq: Status: Active Protocol: Document 02/14/24 14:31 NM (Rec: 02/14/24 15:47 NM [id number]) Shoulder Goniometric Range of Motion Shoulder Right Flexion 150 Extension 60 Abduction 170 External Rotation at 90 degrees 80 Abduction External Rotation at 0 degrees Abduction 80 Internal Rotation Behind Back (text) T7 Comments ER C7 Left AROM Flexion 140 Abduction 140 External Rotation at 0 degrees Abduction 50 Internal Rotation Behind Back (text) T10 Comments discomfort with abduction; tight with ER ER to occiput Left PROM Flexion 150 Abduction 110 External Rotation at 0 degrees Abduction 75 Elbow/Forearm Range of Motion Elbow/Forearm Right Elbow Flexion (degrees) 130 Elbow Extension (degrees) 3 Left Elbow Flexion (degrees) 125 Elbow Extension (degrees) 5 Comments Discomfort reported with end range flexion PT-OP-M Strength Start: 02/14/24 12:51 Freq: Status: Active Protocol: Document 02/14/24 14:31 NM (Rec: 02/14/24 15:47 NM [id number]) Shoulder Strength Shoulder Manual Muscle Testing Right Flexion 4 Good Abduction (C5) 4 Good External Rotation 4 Good Internal Rotation 4 Good Left Flexion 3 Fair Abduction (C5) 3 Fair External Rotation 3 Fair Comments Did not formally assess strength due to precautions; pt able to lift arm against gravity through ROM Elbow/Forearm Strength Elbow and Forearm Manual Muscle Testing Right Flexion (C6) 4 Good Extension (C7) 4 Good Left Flexion (C6) 3 Fair Extension (C7) 3 Fair Comments Did not formally assess strength due to precautions; pt able to lift arm against gravity through ROM PT-OP-Q Treatments Start: 02/14/24 12:51 Freq: Status: Active Protocol: Document 03/02/24 10:43 AB (Rec: 03/02/24 12:35 AB [id number]) Therapeutic Exercises Supine Exercises supine shoulder flexion Supine Exercise Name AROM and with hands clasped Side bilateral Reps/Minutes X2 Comments not casie Sidelying Exercises open book Sidelying Exercise Name HEP Side bilateral Reps/Minutes X10 Comments Verbal and tactile cues ER Sidelying Exercise Name HEP Side left Resistance AROM Equipment Used towel roll between arm/elbow; scapular setting 1st Reps/Minutes X10 Comments verbal cues to avoid wrist extension Standing Exercises scapular wall slide Standing Exercise Name HEP Side bilateral Reps/Minutes X10 Comments verbal and visual cues wall push up plus Standing Exercise Name modified plank plus (serratus) HEP Side bilateral Reps/Minutes 10 Comments tactile cues for scapular setting Manual Therapy Treatment Consent Patient gave verbal consent for manual Yes treatment Soft Tissue Mobilization L shoulder Body Location post cuff, lat, pec, UT, LS Mobilization Type Rolling,Strumming Intensity/Depth Superficial Body Position Hooklying Comments Tolerates well, monitored for pain. Increased restrictions of pec and lat, rhomboid Joint Mobilizations L scapular Direction adduction/retraction, elevation/depression Grade III Body Position Sidelying Reps/Duration 2x10 ea L GHJ Direction post, inf Grade III Body Position Hooklying Reps/Duration 3x15 ea Manual Techniques Contract relax Type into ER Body Location left shoulder Body Position Hooklying Reps/Duration X2 Comments very gentle PT-OP-T Assessment and Plan Start: 02/14/24 12:51 Freq: Status: Active Protocol: Document 03/02/24 10:43 AB (Rec: 03/02/24 12:35 AB [id number]) Physical Therapy Assessment Goals Four Impairment ADL ability impaired; quickdash score 18.2% impairment Correction Goal (LTG) Pt will report <10% impairment on quickdash in order to demonstrate minimal limitations with household ADLs due to L shoulder LTG Duration 12 weeks Three Impairment sleeping impaired; waking 2x/ night Short Term Goal (STG) Pt will report that she is waking fewer than 1x/night due to L shoulder pain to demonstrate improved symptom management STG Duration 6 weeks Sport Psychologist Goal (LTG) Pt will report that she is waking fewer than 3 nights/wk due to L shoulder pain to demonstrate improved symptom management LTG Duration 12 weeks Two Impairment L shoulder strength impaired: currently 3/5 all directions Short Term Goal (STG) Pt will improve L shoulder global strength to at least 4- /5 MMT globally in order to demonstrate improved strength for lifting and carrying ADLs STG Duration 8 weeks Sport Psychologist Goal (LTG) Pt will improve L shoulder global strength to at least 4+ /5 MMT globally in order to demonstrate improved strength for lifting and carrying ADLs LTG Duration 12 weeks One Impairment L shoulder AROM impaired: 140 deg flex and abd Correction Goal (LTG) Pt will improve L shoulder flexion and abduction AROM to at least 150 deg or better in order to be comparable to LUE and to promote improved ROM for reaching, lifting, dressing/grooming ADLs LTG Duration 12 weeks Assessment Summary Assessment Patient 9 weeks one day post op. AROM post manual and exercise ( except wall slide ) left shoulder flexion 150 deg , post wall slide 147 deg. Isometrics and ball flexion discontinued from HEP. Good casie to progression of HEP, but of note reports pain lowering left UE in flexion in supine. Physical Therapy Plan Frequency and Duration Frequency of Treatment 2x/Week Duration of treatment (weeks) 12 Plan of Care Start Date 02/14/24 Plan of Care End Date 05/11/24 Next Visit Focus/Plan Next Note Type Treatment Note Next Visit Plan Review HEP: isometrics and update HEP. Assess casie additions to HEP Progress # reps of banded ER/ IR/flex vs increase band resistance. When appropriate progress to isontonics Progress per protocol as appropriate; revisit early stages of protocol for correct execution Manual: gentle shoulder mobilizations helga inf glide, soft tissue mobilization per surgeon note on 02/08/24, pt able to slowly progress into WBAT
--- NOTE | 2024-03-06 10:45 | PT.OTN ---
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 Evaluation Information Evaluation Date 02/14/24 Precautions Precautions s/p L shoulder arthroscopy with rotator cuff and proximal biceps tendon repair, DOS 12/28 6 weeks: 02/09/24, 8 weeks 02/22, 12 weeks 03/22/24 PMH brain tumor, joint replacement, back and neck pain, headaches, TBI/concusion PT-OP-B Current Condition Start: 02/14/24 12:51 Freq: Status: Active Protocol: Document 02/14/24 14:31 NM (Rec: 02/14/24 15:47 NM [id number]) Current Condition History of Current Condition Onset Date DOS 12/29/23 Current Complaints pain, limited strength and ROM , decreased ADLs History of Current Condition Pt has L shoulder arthroscopy and rotator cuff revision on . She states that they reinforced the rotator cuff and she had a tear in the ligaments away from the muscle in the biceps. Pt had a rotator repair in 2021, reports no complications during that time. She reports that retore her muscles after lifting a patio heater when lifting back in September/October 2023; states that she felt a a burning sensation. She went to see Dr. Melo Azevedo last week for follow up, reports that Dr in pleased except for not wearing sling; reports that pt stopped wearing her sling 3 weeks ago. Reports tenderness along anterior shoulder near biceps. Reports no falls. Prior to stopping wearing sling, she was wearing time recorder (d/c from pillow sling at 2 weeks); no signs of infections. Pt reports that she has been going off of sheet protocol; reports no pain or discomfort. Pt reports that she has been actively using her arm since d/c sling. She lives alone. She is retired. She is icing for pain , not on any medication for pain. Pt reports that she has not really been lifting anything with her L arm except for carrying her clothes, which causes discomfort. She has a follow up with her surgeon in March. Pt is right handed. Reports difficulty mild difficulty with dressing, brushing dog Treatment Goals Patient/Caregiver Goals ROM, strength Current Functional Impairments (Reported) Functional Limitations- ADL's dressing, grooming Functional Limitations- Work/School retired Functional Limitations- Recreation/ brushing dog, lifting, Hobbies carrying laundry Functional Limitations- Other sleepinx/day (in bed: on L side and stomach), was sleeping in recliner or with body pillow PT-OP-C Subjective Start: 02/14/24 12:51 Freq: Status: Active Protocol: Document 03/06/24 08:11 AB (Rec: 03/06/24 10:44 AB [id number]) OP-PT Subjective Patient Comments Patient Comments Patient comments she thinks the shoulder is better, comments she only did the exercises one day. Patient reports she isn't have the pain with lowering so much, but does get a hitch a couple of times day. AROM left shoulder flexion 155 deg with reports of no pain or hitch lowering UE. Patient reports she carried her [employer] items in a box. Patient ed to avoid this until cleared by MD. PT-OP-F Manual Assessment Start: 02/14/24 12:51 Freq: Status: Active Protocol: Document 02/14/24 14:31 NM (Rec: 02/14/24 15:47 NM [id number]) Manual Assessments Soft Tissue Assessment Soft Tissue Mobility Assessment Increased lat and upper trap/ levator scapula tightness. Tenderness with small bulge over distal/middle muscle belly of biceps, reduced with gentle mobilization Joint Mobility Assessment Joint Mobility Assessment Decreased inferior glide L shoulder. Increased anterior humeral positioning in both resting posture and during AROM Other Manual Assessments Other Manual Assessments Distal biceps tendon intact via hook test, no edita sign present for proximal biceps PT-OP-H Neuro Start: 02/14/24 12:51 Freq: Status: Active Protocol: Document 02/14/24 14:31 NM (Rec: 02/14/24 15:47 NM [id number]) Sensation Evaluation Comments Summary Comments BUE equally intact to light touch sensation PT-OP-J Posture/Palpation/Skin Start: 02/14/24 12:51 Freq: Status: Active Protocol: Document 02/14/24 14:31 NM (Rec: 02/14/24 15:47 NM [id number]) Posture Evaluation Position Standing Head/C-Spine Posture Forward Head Shoulder Posture (L) Rounded,(R) Rounded,(L) Forward,(R) Forward Scapula Posture (R) Neutral,(L) Retracted,(R) Elevated Arm Posture (L) Internally Rotated,(R) Internally Rotated Pelvis Posture Anteriorly Tilted Knee Posture (L) Genu Valgus,(R) Genu Valgus Palpation Assessment Location L shoulder Palpation Details Tenderness along biceps muscle belly No tenderness along rotator cuff muscles, incisions, rhomboids, periscapulars Increased tightness of upper trap, levator scapula Skin Assessment Incisional Assessment Incision Appearance/Comments Scars intact, healing without signs of infection. Multiple scars present along anterior, lateral, and posterior shoulder. Mild adhesions of anterior shoulder scars. One slight open scab/wound (not scar) on posterior shoulder. Keloid scarring visible from previous surgeries PT-OP-K Range of Motion Start: 02/14/24 12:51 Freq: Status: Active Protocol: Document 02/14/24 14:31 NM (Rec: 02/14/24 15:47 NM [id number]) Shoulder Goniometric Range of Motion Shoulder Right Flexion 150 Extension 60 Abduction 170 External Rotation at 90 degrees 80 Abduction External Rotation at 0 degrees Abduction 80 Internal Rotation Behind Back (text) T7 Comments ER C7 Left AROM Flexion 140 Abduction 140 External Rotation at 0 degrees Abduction 50 Internal Rotation Behind Back (text) T10 Comments discomfort with abduction; tight with ER ER to occiput Left PROM Flexion 150 Abduction 110 External Rotation at 0 degrees Abduction 75 Elbow/Forearm Range of Motion Elbow/Forearm Right Elbow Flexion (degrees) 130 Elbow Extension (degrees) 3 Left Elbow Flexion (degrees) 125 Elbow Extension (degrees) 5 Comments Discomfort reported with end range flexion PT-OP-M Strength Start: 02/14/24 12:51 Freq: Status: Active Protocol: Document 02/14/24 14:31 NM (Rec: 02/14/24 15:47 NM [id number]) Shoulder Strength Shoulder Manual Muscle Testing Right Flexion 4 Good Abduction (C5) 4 Good External Rotation 4 Good Internal Rotation 4 Good Left Flexion 3 Fair Abduction (C5) 3 Fair External Rotation 3 Fair Comments Did not formally assess strength due to precautions; pt able to lift arm against gravity through ROM Elbow/Forearm Strength Elbow and Forearm Manual Muscle Testing Right Flexion (C6) 4 Good Extension (C7) 4 Good Left Flexion (C6) 3 Fair Extension (C7) 3 Fair Comments Did not formally assess strength due to precautions; pt able to lift arm against gravity through ROM PT-OP-Q Treatments Start: 02/14/24 12:51 Freq: Status: Active Protocol: Document 03/06/24 08:11 AB (Rec: 03/06/24 10:44 AB [id number]) Therapeutic Exercises Supine Exercises supine shoulder flexion Supine Exercise Name 1.AROM 2. mini band Side bilateral Reps/Minutes 1. X2 2. X2 Comments not casie Sidelying Exercises open book Sidelying Exercise Name HEP Side bilateral Reps/Minutes X5 for 5 breaths Comments Verbal and tactile cues ER Sidelying Exercise Name HEP Side left Resistance AROM Equipment Used towel roll between arm/elbow; scapular setting 1st Reps/Minutes X10 Comments verbal cues and tactile to avoid wrist extension Standing Exercises shoulder ER and IR Standing Exercise Name Isotonic Side left Resistance Level one band Reps/Minutes X10 Comments monitored for pain, verbal cues scapular wall slide Standing Exercise Name HEP Side bilateral Reps/Minutes X10 Comments verbal and visual cues scapular strengthening Standing Exercise Name 1. row 2. scapular depression HEP Side bilateral Resistance level 2 band Reps/Minutes X15 each Comments verbal and visual cues Manual Therapy Treatment Consent Patient gave verbal consent for manual Yes treatment Soft Tissue Mobilization L shoulder Body Location post cuff, lat, pec, UT, LS Mobilization Type Rolling,Strumming Intensity/Depth Superficial Body Position Hooklying Comments Tolerates well, monitored for pain. Increased restrictions of pec and lat, rhomboid Joint Mobilizations L scapular Direction adduction/retraction, elevation/depression Grade III Body Position Sidelying Reps/Duration 2x10 ea L GHJ Direction post, inf Grade III Body Position Hooklying Reps/Duration 3x15 ea Manual Techniques Contract relax Type into ER Body Location left shoulder Body Position Hooklying Reps/Duration X2 Comments very gentle PT-OP-T Assessment and Plan Start: 02/14/24 12:51 Freq: Status: Active Protocol: Document 03/06/24 08:11 AB (Rec: 03/06/24 10:44 AB [id number]) Physical Therapy Assessment Goals Four Impairment ADL ability impaired; quickdash score 18.2% impairment Care Home Goal (LTG) Pt will report <10% impairment on quickdash in order to demonstrate minimal limitations with household ADLs due to L shoulder LTG Duration 12 weeks Three Impairment sleeping impaired; waking 2x/ night Short Term Goal (STG) Pt will report that she is waking fewer than 1x/night due to L shoulder pain to demonstrate improved symptom management STG Duration 6 weeks Care Home Goal (LTG) Pt will report that she is waking fewer than 3 nights/wk due to L shoulder pain to demonstrate improved symptom management LTG Duration 12 weeks Two Impairment L shoulder strength impaired: currently 3/5 all directions Short Term Goal (STG) Pt will improve L shoulder global strength to at least 4- /5 MMT globally in order to demonstrate improved strength for lifting and carrying ADLs STG Duration 8 weeks Care Home Goal (LTG) Pt will improve L shoulder global strength to at least 4+ /5 MMT globally in order to demonstrate improved strength for lifting and carrying ADLs LTG Duration 12 weeks One Impairment L shoulder AROM impaired: 140 deg flex and abd Radiation Technician Goal (LTG) Pt will improve L shoulder flexion and abduction AROM to at least 150 deg or better in order to be comparable to LUE and to promote improved ROM for reaching, lifting, dressing/grooming ADLs LTG Duration 12 weeks Assessment Summary Assessment AROM 158 deg left shoulder flexion end of session, with reports of no increased pain. Patient with good casie to isotonic ER and IR with level one band and progression to level 2 band for scapular strengthening. Physical Therapy Plan Next Visit Focus/Plan Next Note Type Treatment Note Next Visit Plan add lift off and lower to wall slide and update HEP. Assess casie additions to HEP Progress # reps of bandedER/IR /flex vs increase band resistance. When appropriate progress to isontonics Progress per protocol as appropriate; revisit early stages of protocol for correct execution Manual: gentle shoulder mobilizations helga inf glide, soft tissue mobilization per surgeon note on 02/08/24, pt able to slowly progress into WBAT
--- NOTE | 2024-03-09 11:33 | PT.OTN ---
Current Diagnoses Pain in left shoulder (03/09/24) Stiffness of left shoulder, not elsewhere classified (03/09/24) Weakness (03/09/24) Strain of muscle(s) and tendon(s) of the rotator cuff of left shoulder, subsequent encounter (03/09/24) Physical Therapy Treatment Note PT-OP-A Visit Information Start: 02/14/24 12:51 Freq: Status: Active Protocol: Document 03/09/24 10:45 NM (Rec: 03/09/24 11:32 NM [id number]) Out-Patient Physical Therapy Visit Information Visit Information Visit Type Treatment Note Visit Start Time 10:47 Visit Stop Time 11:30 Visit Number 6 Evaluation Information Evaluation Date 02/14/24 Precautions Precautions s/p L shoulder arthroscopy with rotator cuff and proximal biceps tendon repair, DOS 12/28 6 weeks: 02/09/24, 8 weeks 02/22, 12 weeks 03/22/24 PMH brain tumor, joint replacement, back and neck pain, headaches, TBI/concusion PT-OP-B Current Condition Start: 02/14/24 12:51 Freq: Status: Active Protocol: Document 02/14/24 14:31 NM (Rec: 02/14/24 15:47 NM [id number]) Current Condition History of Current Condition Onset Date DOS 12/29/23 Current Complaints pain, limited strength and ROM , decreased ADLs History of Current Condition Pt has L shoulder arthroscopy and rotator cuff revision on . She states that they reinforced the rotator cuff and she had a tear in the ligaments away from the muscle in the biceps. Pt had a rotator repair in 2021, reports no complications during that time. She reports that retore her muscles after lifting a patio heater when lifting back in October 2023; states that she felt a a burning sensation. She went to see Dr. Melo Azevedo last week for follow up, reports that Dr in pleased except for not wearing sling; reports that pt stopped wearing her sling 3 weeks ago. Reports tenderness along anterior shoulder near biceps. Reports no falls. Prior to stopping wearing sling, she was wearing full service supervisor (d/c from pillow sling at 2 weeks); no signs of infections. Pt reports that she has been going off of sheet protocol; reports no pain or discomfort. Pt reports that she has been actively using her arm since d/c sling. She lives alone. She is retired. She is icing for pain , not on any medication for pain. Pt reports that she has not really been lifting anything with her L arm except for carrying her clothes, which causes discomfort. She has a follow up with her surgeon in March. Pt is right handed. Reports difficulty mild difficulty with dressing, brushing dog Treatment Goals Patient/Caregiver Goals ROM, strength Current Functional Impairments (Reported) Functional Limitations- ADL's dressing, grooming Functional Limitations- Work/School retired Functional Limitations- Recreation/ brushing dog, lifting, Hobbies carrying laundry Functional Limitations- Other sleepinx/day (in bed: on L side and stomach), was sleeping in recliner or with body pillow PT-OP-C Subjective Start: 02/14/24 12:51 Freq: Status: Active Protocol: Document 03/09/24 10:45 NM (Rec: 03/09/24 11:32 NM [id number]) OP-PT Subjective Patient Comments Patient Comments Pt reports no shoulder pain 0/ 10, states that she did try the exercises since last session. No pain during exercises PT-OP-F Manual Assessment Start: 02/14/24 12:51 Freq: Status: Active Protocol: Document 02/14/24 14:31 NM (Rec: 02/14/24 15:47 NM [id number]) Manual Assessments Soft Tissue Assessment Soft Tissue Mobility Assessment Increased lat and upper trap/ levator scapula tightness. Tenderness with small bulge over distal/middle muscle belly of biceps, reduced with gentle mobilization Joint Mobility Assessment Joint Mobility Assessment Decreased inferior glide L shoulder. Increased anterior humeral positioning in both resting posture and during AROM Other Manual Assessments Other Manual Assessments Distal biceps tendon intact via hook test, no edita sign present for proximal biceps PT-OP-H Neuro Start: 02/14/24 12:51 Freq: Status: Active Protocol: Document 02/14/24 14:31 NM (Rec: 02/14/24 15:47 NM [id number]) Sensation Evaluation Comments Summary Comments BUE equally intact to light touch sensation PT-OP-J Posture/Palpation/Skin Start: 02/14/24 12:51 Freq: Status: Active Protocol: Document 02/14/24 14:31 NM (Rec: 02/14/24 15:47 NM [id number]) Posture Evaluation Position Standing Head/C-Spine Posture Forward Head Shoulder Posture (L) Rounded,(R) Rounded,(L) Forward,(R) Forward Scapula Posture (R) Neutral,(L) Retracted,(R) Elevated Arm Posture (L) Internally Rotated,(R) Internally Rotated Pelvis Posture Anteriorly Tilted Knee Posture (L) Genu Valgus,(R) Genu Valgus Palpation Assessment Location L shoulder Palpation Details Tenderness along biceps muscle belly No tenderness along rotator cuff muscles, incisions, rhomboids, periscapulars Increased tightness of upper trap, levator scapula Skin Assessment Incisional Assessment Incision Appearance/Comments Scars intact, healing without signs of infection. Multiple scars present along anterior, lateral, and posterior shoulder. Mild adhesions of anterior shoulder scars. One slight open scab/wound (not scar) on posterior shoulder. Keloid scarring visible from previous surgeries PT-OP-K Range of Motion Start: 02/14/24 12:51 Freq: Status: Active Protocol: Document 02/14/24 14:31 NM (Rec: 02/14/24 15:47 NM [id number]) Shoulder Goniometric Range of Motion Shoulder Right Flexion 150 Extension 60 Abduction 170 External Rotation at 90 degrees 80 Abduction External Rotation at 0 degrees Abduction 80 Internal Rotation Behind Back (text) T7 Comments ER C7 Left AROM Flexion 140 Abduction 140 External Rotation at 0 degrees Abduction 50 Internal Rotation Behind Back (text) T10 Comments discomfort with abduction; tight with ER ER to occiput Left PROM Flexion 150 Abduction 110 External Rotation at 0 degrees Abduction 75 Elbow/Forearm Range of Motion Elbow/Forearm Right Elbow Flexion (degrees) 130 Elbow Extension (degrees) 3 Left Elbow Flexion (degrees) 125 Elbow Extension (degrees) 5 Comments Discomfort reported with end range flexion PT-OP-M Strength Start: 02/14/24 12:51 Freq: Status: Active Protocol: Document 02/14/24 14:31 NM (Rec: 02/14/24 15:47 NM [id number]) Shoulder Strength Shoulder Manual Muscle Testing Right Flexion 4 Good Abduction (C5) 4 Good External Rotation 4 Good Internal Rotation 4 Good Left Flexion 3 Fair Abduction (C5) 3 Fair External Rotation 3 Fair Comments Did not formally assess strength due to precautions; pt able to lift arm against gravity through ROM Elbow/Forearm Strength Elbow and Forearm Manual Muscle Testing Right Flexion (C6) 4 Good Extension (C7) 4 Good Left Flexion (C6) 3 Fair Extension (C7) 3 Fair Comments Did not formally assess strength due to precautions; pt able to lift arm against gravity through ROM PT-OP-Q Treatments Start: 02/14/24 12:51 Freq: Status: Active Protocol: Document 03/09/24 10:45 NM (Rec: 03/09/24 11:32 NM [id number]) Therapeutic Exercises Supine Exercises rhythmic stabilization Supine Exercise Name light resistance Side left Reps/Minutes 10 ea Comments at end of reps, mild pain w/ flexion; d/c Standing Exercises pec stretch Standing Exercise Name low pec stretch (<45 deg) Side left Reps/Minutes 5x10 hold Comments L step through; pain free shoulder ER and IR Standing Exercise Name HEP review- Isotonic: 1. IR, 2 . ER Side left Resistance Level one band Reps/Minutes 10 Comments monitored for pain, verbal cues to relax shoulder wall push up plus Standing Exercise Name modified plank plus (serratus) HEP Side bilateral Reps/Minutes 10 Comments tactile cues for scapular setting and protraction scapular strengthening Standing Exercise Name 1. row 2. scapular depression HEP review Side bilateral Resistance level 2 band Reps/Minutes 3x10 each, pause at end range Comments verbal and visual cues ot limit shoulder elevation Manual Therapy Treatment Consent Patient gave verbal consent for manual Yes treatment Soft Tissue Mobilization L shoulder Body Location post cuff, lat, pec, UT, LS Mobilization Type Rolling,Strumming Intensity/Depth Superficial Body Position Hooklying Comments Tolerates well, monitored for pain. Increased restrictions of pec and lat, rhomboid. No tenderness Joint Mobilizations L scapular Direction adduction/retraction, elevation/depression Grade III Body Position Sidelying Reps/Duration 20 ea L GHJ Direction post, inf Grade III Body Position Hooklying Reps/Duration 4x30 ea Comments Improved posterior capsule mobility Self-Care/Home Management Treatment Education Patient Education Body Mechanics,Joint Protection,Pain Management Other Education Educated to avoid lifting bed when changing sheets, recommended assist if possible when changing sheets. Educated to not perform lifting due to restrictions until cleared by MD, following MAINTENANCE TECHNICIAN 3RD SHIFT discussion. PT-OP-T Assessment and Plan Start: 02/14/24 12:51 Freq: Status: Active Protocol: Document 03/09/24 10:45 NM (Rec: 03/09/24 11:32 NM [id number]) Physical Therapy Assessment Goals Four Impairment ADL ability impaired; quickdash score 18.2% impairment Supervisor Border Department Goal (LTG) Pt will report <10% impairment on quickdash in order to demonstrate minimal limitations with household ADLs due to L shoulder LTG Duration 12 weeks Three Impairment sleeping impaired; waking 2x/ night Short Term Goal (STG) Pt will report that she is waking fewer than 1x/night due to L shoulder pain to demonstrate improved symptom management 03/09/24: pt has not woke up due to shoulder pain for last 3-4 days, not taking medication to manage pain STG Duration 6 weeks MET Detention Goal (LTG) Pt will report that she is waking fewer than 3 nights/wk due to L shoulder pain to demonstrate improved symptom management LTG Duration 12 weeks Two Impairment L shoulder strength impaired: currently 3/5 all directions Short Term Goal (STG) Pt will improve L shoulder global strength to at least 4- /5 MMT globally in order to demonstrate improved strength for lifting and carrying ADLs STG Duration 8 weeks Supervisor Border Department Goal (LTG) Pt will improve L shoulder global strength to at least 4+ /5 MMT globally in order to demonstrate improved strength for lifting and carrying ADLs LTG Duration 12 weeks One Impairment L shoulder AROM impaired: 140 deg flex and abd Supervisor Border Department Goal (LTG) Pt will improve L shoulder flexion and abduction AROM to at least 150 deg or better in order to be comparable to LUE and to promote improved ROM for reaching, lifting, dressing/grooming ADLs LTG Duration 12 weeks Assessment Summary Assessment No shoulder pain during or after session. Pt progressing toward goals. Met sleeping STG today. Has 163 L shoulder flexion AROM, 170 deg L shoulder abduction AROM; pain free. Increased number of reps for shoulder retraction/ depression. Pt fatigues quickly with rotator cuff strengthening, but able to progress another set of 10. Cued to limit shoulder elevation especially as fatigues. Educated on lifting restrictions, safety and joint protection during HEPs since pt lives alone. Good feedback for low pec stretch. Pt does have mild pain with supine rhythmic stabilization into flexion; will trial in quadruped in future sessions. Pt would benefit from skilled PT for L shoulder strengthening and AROM per protocol in order to improve lifting, reaching, dressing ADLs. Physical Therapy Plan Frequency and Duration Frequency of Treatment 2x/Week Duration of treatment (weeks) 12 Plan of Care Start Date 02/14/24 Plan of Care End Date 05/11/24 Therapeutic Interventions Therapeutic Interventions Balance Training,Gait Training ,Home Exercise Program,Joint Mobilizations,Manual Therapy, Neuromuscular Re-education, Orthotic/Prosthetic Management ,Patient/Caregiver Education, Self-Care/Home Management, Sensory Integration,Soft Tissue Mobilization,Taping, Therapeutic Activities, Therapeutic Exercises Modalities Cold Pack/Ice Massage,Hot Packs Next Visit Focus/Plan Next Note Type Treatment Note Next Visit Plan add lift off and lower to wall slide and update HEP. Progress band rows/low rows. Trial scap press w/ band. Assess tolerance to inc reps in IR/ER. When appropriate progress to isontonics Progress per protocol as appropriate; revisit early stages of protocol for correct execution Manual: gentle shoulder mobilizations helga inf glide, soft tissue mobilization per surgeon note on 02/08/24, pt able to slowly progress into WBAT
--- NOTE | 2024-03-13 10:53 | PT.OTN ---
Current Diagnoses Pain in left shoulder (03/13/24) Stiffness of left shoulder, not elsewhere classified (03/13/24) Weakness (03/13/24) Strain of muscle(s) and tendon(s) of the rotator cuff of left shoulder, subsequent encounter (03/13/24) Physical Therapy Treatment Note PT-OP-A Visit Information Start: 02/14/24 12:51 Freq: Status: Active Protocol: Document 03/13/24 09:48 NM (Rec: 03/13/24 10:45 NM [id number]) Out-Patient Physical Therapy Visit Information Visit Information Visit Type Progress Note Visit Start Time 09:49 Visit Stop Time 10:30 Visit Number 7 Evaluation Information Evaluation Date 02/14/24 Precautions Precautions s/p L shoulder arthroscopy with rotator cuff and proximal biceps tendon repair, DOS 12/28 6 weeks: 02/09/24, 8 weeks 02/22, 12 weeks 03/22/24 PMH brain tumor, joint replacement, back and neck pain, headaches, TBI/concusion PT-OP-B Current Condition Start: 02/14/24 12:51 Freq: Status: Active Protocol: Document 02/14/24 14:31 NM (Rec: 02/14/24 15:47 NM [id number]) Current Condition History of Current Condition Onset Date DOS 12/29/23 Current Complaints pain, limited strength and ROM , decreased ADLs History of Current Condition Pt has L shoulder arthroscopy and rotator cuff revision on . She states that they reinforced the rotator cuff and she had a tear in the ligaments away from the muscle in the biceps. Pt had a rotator repair in 2021, reports no complications during that time. She reports that retore her muscles after lifting a patio heater when lifting back in October 2023; states that she felt a a burning sensation. She went to see Dr. Melo Azevedo last week for follow up, reports that Dr in pleased except for not wearing sling; reports that pt stopped wearing her sling 3 weeks ago. Reports tenderness along anterior shoulder near biceps. Reports no falls. 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 Pt reports that she has been going off of sheet protocol; reports no pain or discomfort. Pt reports that she has been actively using her arm since d/c sling. She lives alone. She is retired. She is icing for pain , not on any medication for pain. Pt reports that she has not really been lifting anything with her L arm except for carrying her clothes, which causes discomfort. She has a follow up with her surgeon in March. Pt is right handed. Reports difficulty mild difficulty with dressing, brushing dog Treatment Goals Patient/Caregiver Goals ROM, strength Current Functional Impairments (Reported) Functional Limitations- ADL's dressing, grooming Functional Limitations- Work/School retired Functional Limitations- Recreation/ brushing dog, lifting, Hobbies carrying laundry Functional Limitations- Other sleepinx/day (in bed: on L side and stomach), was sleeping in recliner or with body pillow PT-OP-C Subjective Start: 02/14/24 12:51 Freq: Status: Active Protocol: Document 03/13/24 09:48 NM (Rec: 03/13/24 10:45 NM [id number]) OP-PT Subjective Patient Comments Patient Comments Pt reports shoulder is sore today, denies pain. States she does not know what caused it, states slept ok. She sees MD on 04/09. She was able to change her bed sheets, no discomfort or pain; states took increased time but did not lift her bed. Reports exercises are going well, reports that sometimes feels tight like she doesn't has muscle. Will split up exercises so does not get sore . PT-OP-F Manual Assessment Start: 02/14/24 12:51 Freq: Status: Active Protocol: Document 02/14/24 14:31 NM (Rec: 02/14/24 15:47 NM [id number]) Manual Assessments Soft Tissue Assessment Soft Tissue Mobility Assessment Increased lat and upper trap/ levator scapula tightness. Tenderness with small bulge over distal/middle muscle belly of biceps, reduced with gentle mobilization Joint Mobility Assessment Joint Mobility Assessment Decreased inferior glide L shoulder. Increased anterior humeral positioning in both resting posture and during AROM Other Manual Assessments Other Manual Assessments Distal biceps tendon intact via hook test, no edita sign present for proximal biceps PT-OP-H Neuro Start: 02/14/24 12:51 Freq: Status: Active Protocol: Document 02/14/24 14:31 NM (Rec: 02/14/24 15:47 NM [id number]) Sensation Evaluation Comments Summary Comments BUE equally intact to light touch sensation PT-OP-J Posture/Palpation/Skin Start: 02/14/24 12:51 Freq: Status: Active Protocol: Document 02/14/24 14:31 NM (Rec: 02/14/24 15:47 NM [id number]) Posture Evaluation Position Standing Head/C-Spine Posture Forward Head Shoulder Posture (L) Rounded,(R) Rounded,(L) Forward,(R) Forward Scapula Posture (R) Neutral,(L) Retracted,(R) Elevated Arm Posture (L) Internally Rotated,(R) Internally Rotated Pelvis Posture Anteriorly Tilted Knee Posture (L) Genu Valgus,(R) Genu Valgus Palpation Assessment Location L shoulder Palpation Details Tenderness along biceps muscle belly No tenderness along rotator cuff muscles, incisions, rhomboids, periscapulars Increased tightness of upper trap, levator scapula Skin Assessment Incisional Assessment Incision Appearance/Comments Scars intact, healing without signs of infection. Multiple scars present along anterior, lateral, and posterior shoulder. Mild adhesions of anterior shoulder scars. One slight open scab/wound (not scar) on posterior shoulder. Keloid scarring visible from previous surgeries PT-OP-K Range of Motion Start: 02/14/24 12:51 Freq: Status: Active Protocol: Document 03/13/24 09:48 NM (Rec: 03/13/24 10:45 NM [id number]) Shoulder Goniometric Range of Motion Shoulder Right Flexion 150 Extension 60 Abduction 170 External Rotation at 90 degrees 80 Abduction External Rotation at 0 degrees Abduction 80 Internal Rotation Behind Back (text) T7 Comments ER C7 Left AROM Flexion 140 Abduction 140 External Rotation at 0 degrees Abduction 50 Internal Rotation Behind Back (text) T10 Comments discomfort with abduction; tight with ER ER to occiput 03/13/24: 164 deg flex, 170 deg abd, C7 ER, T12 IR apley Left PROM Flexion 150 Abduction 110 External Rotation at 0 degrees Abduction 75 PT-OP-M Strength Start: 02/14/24 12:51 Freq: Status: Active Protocol: Document 03/13/24 09:48 NM (Rec: 03/13/24 10:45 NM [id number]) Shoulder Strength Shoulder Manual Muscle Testing Right Flexion 4 Good Abduction (C5) 4 Good External Rotation 4 Good Internal Rotation 4 Good Left Flexion 3+ Fair+ Abduction (C5) 3+ Fair+ External Rotation 3+ Fair+ Internal Rotation 3+ Fair+ Comments IE: 3/5; Did not formally assess strength due to precautions; pt able to lift arm against gravity through ROM 03/13/24: 3+ for all; pain free PT-OP-Q Treatments Start: 02/14/24 12:51 Freq: Status: Active Protocol: Document 03/13/24 09:48 NM (Rec: 03/13/24 10:45 NM [id number]) Therapeutic Exercises Supine Exercises rhythmic stabilization Supine Exercise Name light resistance Side bilateral Equipment Used holding small blue mosotho ball Reps/Minutes 30 sec Comments reports small hitch with lifting ball supine shoulder flexion Supine Exercise Name miniband- flex + ER Side bilateral Reps/Minutes 5 Comments cued posterior shoulder position at table Sitting Exercises serratus punch Side left Resistance level 1 band Reps/Minutes 10 Comments pain free; cueing for shoulder Standing Exercises pec stretch Standing Exercise Name low pec stretch (<45 deg)- HEP Side bilateral Equipment Used doorway Reps/Minutes 30 Comments L step through; pain free scapular wall slide Standing Exercise Name HEP review Side bilateral Resistance level 1 band- added today Reps/Minutes 10 (edu can do 5 w/ band HEP and 5 w/o band) Comments verbal and visual cues; improved scap protract scapular strengthening Standing Exercise Name 1. row 2. scapular depression HEP review Side bilateral Resistance level 3 band- trialed today for row (HEP) Equipment Used level 2 band for low row Reps/Minutes 1. 2x10 each, pause at end range, 3. 3x10 Comments less shoulder elevation today; prn cues Manual Therapy Treatment Consent Patient gave verbal consent for manual Yes treatment Soft Tissue Mobilization L shoulder Body Location post cuff, lat, pec, UT, LS Mobilization Type Rolling,Strumming Intensity/Depth Superficial Body Position Hooklying Comments Tolerates well, monitored for pain. Increased restrictions of pec and lat, rhomboid. No tenderness Joint Mobilizations L ribs Joint 1st Direction caudal Grade III Body Position Sidelying Reps/Duration 10 ea L scapular Direction adduction/retraction, elevation/depression Grade III Body Position Sidelying Reps/Duration 20 ea PT-OP-T Assessment and Plan Start: 02/14/24 12:51 Freq: Status: Active Protocol: Document 03/13/24 09:48 NM (Rec: 03/13/24 10:45 NM [id number]) Physical Therapy Assessment Goals Four Impairment ADL ability impaired; quickdash score 18.2% impairment Home Health Provider Goal (LTG) Pt will report <10% impairment on quickdash in order to demonstrate minimal limitations with household ADLs due to L shoulder 03/13/24: 18.2% impairment LTG Duration 12 weeks Three Impairment sleeping impaired; waking 2x/ night Short Term Goal (STG) Pt will report that she is waking fewer than 1x/night due to L shoulder pain to demonstrate improved symptom management 03/09/24: pt has not woke up due to shoulder pain for last 3-4 days, not taking medication to manage pain 03/13/24: reports not waking up at night due to L shoulder STG Duration 6 weeks MET Home Health Provider Goal (LTG) Pt will report that she is waking fewer than 3 nights/wk due to L shoulder pain to demonstrate improved symptom management 03/13/24: reports not waking up at night due to L shoulder LTG Duration 12 weeks Two Impairment L shoulder strength impaired: currently 3/5 [address] directions Short Term Goal (STG) Pt will improve L shoulder global strength to at least 4- /5 MMT globally in order to demonstrate improved strength for lifting and carrying ADLs 03/13/24: 3+/5 for all STG Duration 8 weeks PROGRESSING 03/13/24 Home Health Provider Goal (LTG) Pt will improve L shoulder global strength to at least 4+ /5 MMT globally in order to demonstrate improved strength for lifting and carrying ADLs LTG Duration 12 weeks One Impairment L shoulder AROM impaired: 140 deg flex and abd [facility] Goal (LTG) Pt will improve L shoulder flexion and abduction AROM to at least 150 deg or better in order to be comparable to LUE and to promote improved ROM for reaching, lifting, dressing/grooming ADLs 03/13/24: 164 deg flex, 170 deg abd, C7 ER, T12 IR apley LTG Duration 12 weeks MET Progress Towards Goals Progress Towards Goals Progressing Toward Goals,Goals Met Assessment Summary Assessment Pt reports 1 hitch with initially lifting L arm while supine on table; exhibits forward/rounded shoulder and shoulder elevation simultaneously at the time. Educated on shoulder positioning to open L shoulder space and postural control. Trialed level 3 band for rows at reduced reps to determine tolerance; did not progress low row due to moderate cueing and moderate difficulty. No pain with rhythmic stabilization today in supine, but did use RUE to stabilize. Trialed serratus punch with band and progression to banded serratus wall slide with pt holding band; increased fatigue with exercises but pain free. Pt continues to make slow progressions in strength and AROM; however, she would benefit from skilled PT for progressive strengthening in order to improve L shoulder stability and ability to perform ADLs without limitation. Physical Therapy Plan Frequency and Duration Frequency of Treatment 2x/Week Duration of treatment (weeks) 12 Plan of Care Start Date 02/14/24 Plan of Care End Date 05/11/24 Therapeutic Interventions Therapeutic Interventions Balance Training,Gait Training ,Home Exercise Program,Joint Mobilizations,Manual Therapy, Neuromuscular Re-education, Orthotic/Prosthetic Management ,Patient/Caregiver Education, Self-Care/Home Management, Sensory Integration,Soft Tissue Mobilization,Taping, Therapeutic Activities, Therapeutic Exercises Modalities Cold Pack/Ice Massage,Hot Packs Next Visit Focus/Plan Next Note Type Treatment Note Next Visit Plan add lift off and lower to wall slide and update HEP. Progress per protocol. Assess tolerance to serratus press, inc resistance rows. Cont w/ rhythmic stab, miniband. Assess tolerance to inc reps in IR/ER, inc resistance as able. When appropriate progress to isontonics Progress per protocol as appropriate; revisit early stages of protocol for correct execution Manual: gentle shoulder mobilizations helga inf glide, soft tissue mobilization per surgeon note on 02/08/24, pt able to slowly progress into WBAT
--- NOTE | 2024-03-15 13:05 | PT.OTN ---
Addendum entered and electronically signed by Germania Garcia 03/15/24 13:10: High row added to HEP Original Note: Current Diagnoses Pain in left shoulder (03/15/24) Stiffness of left shoulder, not elsewhere classified (03/15/24) Weakness (03/15/24) Strain of muscle(s) and tendon(s) of the rotator cuff of left shoulder, subsequent encounter (03/15/24) Physical Therapy Treatment Note PT-OP-A Visit Information Start: 02/14/24 12:51 Freq: Status: Active Protocol: Document 03/15/24 08:14 AB (Rec: 03/15/24 10:44 AB [id number]) Out-Patient Physical Therapy Visit Information Visit Information Visit Type Treatment Note Visit Note Access Code [id number] Visit Start Time 09:03 Visit Stop Time 09:46 Visit Number 8 Number of FEED BLENDER Visits 1 Evaluation Information Evaluation Date 02/14/24 Precautions Precautions s/p L shoulder arthroscopy with rotator cuff and proximal biceps tendon repair, DOS 12/28 6 weeks: 02/09/24, 8 weeks 02/22, 12 weeks 03/22/24 PMH brain tumor, joint replacement, back and neck pain, headaches, TBI/concusion PT-OP-B Current Condition Start: 02/14/24 12:51 Freq: Status: Active Protocol: Document 02/14/24 14:31 NM (Rec: 02/14/24 15:47 NM [id number]) Current Condition History of Current Condition Onset Date DOS 12/29/23 Current Complaints pain, limited strength and ROM , decreased ADLs History of Current Condition Pt has L shoulder arthroscopy and rotator cuff revision on . She states that they reinforced the rotator cuff and she had a tear in the ligaments away from the muscle in the biceps. Pt had a rotator repair in 2021, reports no complications during that time. She reports that retore her muscles after lifting a patio heater when lifting back in October 2023; states that she felt a a burning sensation. She went to see Dr. Melo Azevedo last week for follow up, reports that in pleased except for not wearing sling; reports that pt stopped wearing her sling 3 weeks ago. Reports tenderness along anterior shoulder near biceps. Reports no falls. 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 Pt reports that she has been going off of sheet protocol; reports no pain or discomfort. Pt reports that she has been actively using her arm since d/c sling. She lives alone. She is retired. She is icing for pain , not on any medication for pain. Pt reports that she has not really been lifting anything with her L arm except for carrying her clothes, which causes discomfort. She has a follow up with her surgeon in March. Pt is right handed. Reports difficulty mild difficulty with dressing, brushing dog Treatment Goals Patient/Caregiver Goals ROM, strength Current Functional Impairments (Reported) Functional Limitations- ADL's dressing, grooming Functional Limitations- Work/School retired Functional Limitations- Recreation/ brushing dog, lifting, Hobbies carrying laundry Functional Limitations- Other sleepinx/day (in bed: on L side and stomach), was sleeping in recliner or with body pillow PT-OP-C Subjective Start: 02/14/24 12:51 Freq: Status: Active Protocol: Document 03/15/24 08:14 AB (Rec: 03/15/24 10:44 AB [id number]) OP-PT Subjective Patient Comments Patient Comments Patient is 11 weeks post op right shoulder arthroscopy with rotator cuff and proximal biceps tendon repair. Patient reprots the shoulder is the same, reports no hitching since previous session when questioned. 158 deg AROM left shoulder flexion start of session. PT-OP-F Manual Assessment Start: 02/14/24 12:51 Freq: Status: Active Protocol: Document 02/14/24 14:31 NM (Rec: 02/14/24 15:47 NM [id number]) Manual Assessments Soft Tissue Assessment Soft Tissue Mobility Assessment Increased lat and upper trap/ levator scapula tightness. Tenderness with small bulge over distal/middle muscle belly of biceps, reduced with gentle mobilization Joint Mobility Assessment Joint Mobility Assessment Decreased inferior glide L shoulder. Increased anterior humeral positioning in both resting posture and during AROM Other Manual Assessments Other Manual Assessments Distal biceps tendon intact via hook test, no edita sign present for proximal biceps PT-OP-H Neuro Start: 02/14/24 12:51 Freq: Status: Active Protocol: Document 02/14/24 14:31 NM (Rec: 02/14/24 15:47 NM [id number]) Sensation Evaluation Comments Summary Comments BUE equally intact to light touch sensation PT-OP-J Posture/Palpation/Skin Start: 02/14/24 12:51 Freq: Status: Active Protocol: Document 02/14/24 14:31 NM (Rec: 02/14/24 15:47 NM [id number]) Posture Evaluation Position Standing Head/C-Spine Posture Forward Head Shoulder Posture (L) Rounded,(R) Rounded,(L) Forward,(R) Forward Scapula Posture (R) Neutral,(L) Retracted,(R) Elevated Arm Posture (L) Internally Rotated,(R) Internally Rotated Pelvis Posture Anteriorly Tilted Knee Posture (L) Genu Valgus,(R) Genu Valgus Palpation Assessment Location L shoulder Palpation Details Tenderness along biceps muscle belly No tenderness along rotator cuff muscles, incisions, rhomboids, periscapulars Increased tightness of upper trap, levator scapula Skin Assessment Incisional Assessment Incision Appearance/Comments Scars intact, healing without signs of infection. Multiple scars present along anterior, lateral, and posterior shoulder. Mild adhesions of anterior shoulder scars. One slight open scab/wound (not scar) on posterior shoulder. Keloid scarring visible from previous surgeries PT-OP-K Range of Motion Start: 02/14/24 12:51 Freq: Status: Active Protocol: Document 03/13/24 09:48 NM (Rec: 03/13/24 10:45 NM [id number]) Shoulder Goniometric Range of Motion Shoulder Right Flexion 150 Extension 60 Abduction 170 External Rotation at 90 degrees 80 Abduction External Rotation at 0 degrees Abduction 80 Internal Rotation Behind Back (text) T7 Comments ER C7 Left AROM Flexion 140 Abduction 140 External Rotation at 0 degrees Abduction 50 Internal Rotation Behind Back (text) T10 Comments discomfort with abduction; tight with ER ER to occiput 03/13/24: 164 deg flex, 170 deg abd, C7 ER, T12 IR apley Left PROM Flexion 150 Abduction 110 External Rotation at 0 degrees Abduction 75 PT-OP-M Strength Start: 02/14/24 12:51 Freq: Status: Active Protocol: Document 03/13/24 09:48 NM (Rec: 03/13/24 10:45 NM [id number]) Shoulder Strength Shoulder Manual Muscle Testing Right Flexion 4 Good Abduction (C5) 4 Good External Rotation 4 Good Internal Rotation 4 Good Left Flexion 3+ Fair+ Abduction (C5) 3+ Fair+ External Rotation 3+ Fair+ Internal Rotation 3+ Fair+ Comments IE: 3/5; Did not formally assess strength due to precautions; pt able to lift arm against gravity through ROM 03/13/24: 3+ for all; pain free PT-OP-Q Treatments Start: 02/14/24 12:51 Freq: Status: Active Protocol: Document 03/15/24 08:14 AB (Rec: 03/15/24 10:44 AB [id number]) Therapeutic Exercises Supine Exercises rhythmic stabilization Supine Exercise Name light resistance Side bilateral Equipment Used holding small blue cypriot ball Reps/Minutes 30 sec Comments reports small hitch with lifting ball supine shoulder flexion Supine Exercise Name miniband- flex + ER Side bilateral Resistance level one light blue band Reps/Minutes X2 Comments not casie Sidelying Exercises ER Sidelying Exercise Name HEP Side left Resistance AROM Reps/Minutes X10 Comments review, monitored for pain Standing Exercises rhythmic stabilization with therabar Standing Exercise Name lat med movement UE at side Side left Resistance yellow therabar Reps/Minutes 30 sec pec stretch Standing Exercise Name low pec stretch (<45 deg)- HEP shoulder ER and IR Standing Exercise Name HEP review- Isotonic: 1. IR, 2 . ER Side left Resistance Level one band Reps/Minutes 10 Comments monitored for pain, verbal cues to relax shoulder scapular wall slide Standing Exercise Name HEP review Reps/Minutes X10 Comments with lift off and lower without use of wall wall push up plus Standing Exercise Name modified plank plus (serratus) HEP Side bilateral Reps/Minutes X4 then X 2 Comments tactile cues and verbal cues for scapular setting scapular strengthening Standing Exercise Name 1. row 2. scapular depression HEP 3. scap sque with ext 4. high row Side bilateral Equipment Used level 3 ban Reps/Minutes X15 each Manual Therapy Treatment Soft Tissue Mobilization L shoulder Body Location post cuff, lat, pec, UT, LS Mobilization Type Rolling,Strumming Intensity/Depth Superficial Body Position Hooklying Comments Tolerates well, monitored for pain. Increased restrictions of pec and lat, rhomboid. No tenderness Joint Mobilizations L scapular Direction adduction/retraction, elevation/depression Grade III Body Position Sidelying Reps/Duration 20 ea L GHJ Direction post, inf Grade III Body Position Hooklying Reps/Duration 4x30 ea Comments Improved posterior capsule mobility PT-OP-T Assessment and Plan Start: 02/14/24 12:51 Freq: Status: Active Protocol: Document 03/15/24 08:14 AB (Rec: 03/15/24 10:44 AB [id number]) Physical Therapy Assessment Goals Four Impairment ADL ability impaired; quickdash score 18.2% impairment Penitentiary Goal (LTG) Pt will report <10% impairment on quickdash in order to demonstrate minimal limitations with household ADLs due to L shoulder 03/13/24: 18.2% impairment LTG Duration 12 weeks Three Impairment sleeping impaired; waking 2x/ night Short Term Goal (STG) Pt will report that she is waking fewer than 1x/night due to L shoulder pain to demonstrate improved symptom management 03/09/24: pt has not woke up due to shoulder pain for last 3-4 days, not taking medication to manage pain 03/13/24: reports not waking up at night due to L shoulder STG Duration 6 weeks MET Penitentiary Goal (LTG) Pt will report that she is waking fewer than 3 nights/wk due to L shoulder pain to demonstrate improved symptom management 03/13/24: reports not waking up at night due to L shoulder LTG Duration 12 weeks Two Impairment L shoulder strength impaired: currently 3/5 all directions Short Term Goal (STG) Pt will improve L shoulder global strength to at least 4- /5 MMT globally in order to demonstrate improved strength for lifting and carrying ADLs 03/13/24: 3+/5 for all STG Duration 8 weeks PROGRESSING 03/13/24 Penitentiary Goal (LTG) Pt will improve L shoulder global strength to at least 4+ /5 MMT globally in order to demonstrate improved strength for lifting and carrying ADLs LTG Duration 12 weeks One Impairment L shoulder AROM impaired: 140 deg flex and abd Instrument Maker And Repairer Goal (LTG) Pt will improve L shoulder flexion and abduction AROM to at least 150 deg or better in order to be comparable to LUE and to promote improved ROM for reaching, lifting, dressing/grooming ADLs 03/13/24: 164 deg flex, 170 deg abd, C7 ER, T12 IR apley LTG Duration 12 weeks MET Assessment Summary Assessment Patient with 161 deg AROM left shoulder flexion end of session and able to lower L UE to mat in supine without hitch post focus on rotator cuff isotonics and scapular strengthening. Physical Therapy Plan Frequency and Duration Frequency of Treatment 2x/Week Duration of treatment (weeks) 12 Plan of Care Start Date 02/14/24 Plan of Care End Date 05/11/24 Next Visit Focus/Plan Next Note Type Treatment Note Next Visit Plan update HEP. Progress per protocol. Assess tolerance to serratus press, inc resistance rows/possibly end of first week Nov. Cont w/ rhythmic stab, miniband. Progress per protocol as appropriate; revisit early stages of protocol for correct execution Manual: gentle shoulder mobilizations helga inf glide, soft tissue mobilization per surgeon note on 02/08/24, pt able to slowly progress into WBAT
--- NOTE | 2024-03-20 16:27 | PT.OTN ---
Current Diagnoses Pain in left shoulder (03/20/24) Stiffness of left shoulder, not elsewhere classified (03/20/24) Weakness (03/20/24) Strain of muscle(s) and tendon(s) of the rotator cuff of left shoulder, subsequent encounter (03/20/24) Physical Therapy Treatment Note PT-OP-A Visit Information Start: 02/14/24 12:51 Freq: Status: Active Protocol: Document 03/20/24 14:37 AB (Rec: 03/20/24 16:26 AB [id number]) Out-Patient Physical Therapy Visit Information Visit Information Visit Type Treatment Note Visit Note Access Code [id number] Visit Start Time 15:21 Visit Stop Time 16:04 Visit Number 9 Number of PHOTO LAB TECHNICIAN Visits 2 Evaluation Information Evaluation Date 02/14/24 Precautions Precautions s/p L shoulder arthroscopy with rotator cuff and proximal biceps tendon repair, DOS 12/28 6 weeks: 02/09/24, 8 weeks 02/22, 12 weeks 03/22/24 PMH brain tumor, joint replacement, back and neck pain, headaches, TBI/concusion PT-OP-B Current Condition Start: 02/14/24 12:51 Freq: Status: Active Protocol: Document 02/14/24 14:31 NM (Rec: 02/14/24 15:47 NM [id number]) Current Condition History of Current Condition Onset Date DOS 12/29/23 Current Complaints pain, limited strength and ROM , decreased ADLs History of Current Condition Pt has L shoulder arthroscopy and rotator cuff revision on . She states that they reinforced the rotator cuff and she had a tear in the ligaments away from the muscle in the biceps. Pt had a rotator repair in 2021, reports no complications during that time. She reports that retore her muscles after lifting a patio heater when lifting back in September/October 2023; states that she felt a a burning sensation. She went to see Dr. Melo Azevedo last week for follow up, reports that Dr in pleased except for not wearing sling; reports that pt stopped wearing her sling 3 weeks ago. Reports tenderness along anterior shoulder near biceps. Reports no falls. 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 Pt reports that she has been going off of sheet protocol; reports no pain or discomfort. Pt reports that she has been actively using her arm since d/c sling. She lives alone. She is retired. She is icing for pain , not on any medication for pain. Pt reports that she has not really been lifting anything with her L arm except for carrying her clothes, which causes discomfort. She has a follow up with her surgeon in March. Pt is right handed. Reports difficulty mild difficulty with dressing, brushing dog Treatment Goals Patient/Caregiver Goals ROM, strength Current Functional Impairments (Reported) Functional Limitations- ADL's dressing, grooming Functional Limitations- Work/School retired Functional Limitations- Recreation/ brushing dog, lifting, Hobbies carrying laundry Functional Limitations- Other sleepinx/day (in bed: on L side and stomach), was sleeping in recliner or with body pillow PT-OP-C Subjective Start: 02/14/24 12:51 Freq: Status: Active Protocol: Document 03/20/24 14:37 AB (Rec: 03/20/24 16:26 AB [id number]) OP-PT Subjective Patient Comments Patient Comments Pt is 11 weeks 5 days post op. Patient reports going back to [facility]. Patient reports no hitching in the past couple of days. AROM 157 deg AROM left, shoulder. Patient reports no pain with HEP, wall push up plus, serratus. ex. PT-OP-F Manual Assessment Start: 02/14/24 12:51 Freq: Status: Active Protocol: Document 02/14/24 14:31 NM (Rec: 02/14/24 15:47 NM [id number]) Manual Assessments Soft Tissue Assessment Soft Tissue Mobility Assessment Increased lat and upper trap/ levator scapula tightness. Tenderness with small bulge over distal/middle muscle belly of biceps, reduced with gentle mobilization Joint Mobility Assessment Joint Mobility Assessment Decreased inferior glide L shoulder. Increased anterior humeral positioning in both resting posture and during AROM Other Manual Assessments Other Manual Assessments Distal biceps tendon intact via hook test, no edita sign present for proximal biceps PT-OP-H Neuro Start: 02/14/24 12:51 Freq: Status: Active Protocol: Document 02/14/24 14:31 NM (Rec: 02/14/24 15:47 NM [id number]) Sensation Evaluation Comments Summary Comments BUE equally intact to light touch sensation PT-OP-J Posture/Palpation/Skin Start: 02/14/24 12:51 Freq: Status: Active Protocol: Document 02/14/24 14:31 NM (Rec: 02/14/24 15:47 NM [id number]) Posture Evaluation Position Standing Head/C-Spine Posture Forward Head Shoulder Posture (L) Rounded,(R) Rounded,(L) Forward,(R) Forward Scapula Posture (R) Neutral,(L) Retracted,(R) Elevated Arm Posture (L) Internally Rotated,(R) Internally Rotated Pelvis Posture Anteriorly Tilted Knee Posture (L) Genu Valgus,(R) Genu Valgus Palpation Assessment Location L shoulder Palpation Details Tenderness along biceps muscle belly No tenderness along rotator cuff muscles, incisions, rhomboids, periscapulars Increased tightness of upper trap, levator scapula Skin Assessment Incisional Assessment Incision Appearance/Comments Scars intact, healing without signs of infection. Multiple scars present along anterior, lateral, and posterior shoulder. Mild adhesions of anterior shoulder scars. One slight open scab/wound (not scar) on posterior shoulder. Keloid scarring visible from previous surgeries PT-OP-K Range of Motion Start: 02/14/24 12:51 Freq: Status: Active Protocol: Document 03/13/24 09:48 NM (Rec: 03/13/24 10:45 NM [id number]) Shoulder Goniometric Range of Motion Shoulder Right Flexion 150 Extension 60 Abduction 170 External Rotation at 90 degrees 80 Abduction External Rotation at 0 degrees Abduction 80 Internal Rotation Behind Back (text) T7 Comments ER C7 Left AROM Flexion 140 Abduction 140 External Rotation at 0 degrees Abduction 50 Internal Rotation Behind Back (text) T10 Comments discomfort with abduction; tight with ER ER to occiput 03/13/24: 164 deg flex, 170 deg abd, C7 ER, T12 IR apley Left PROM Flexion 150 Abduction 110 External Rotation at 0 degrees Abduction 75 PT-OP-M Strength Start: 02/14/24 12:51 Freq: Status: Active Protocol: Document 03/13/24 09:48 NM (Rec: 03/13/24 10:45 NM [id number]) Shoulder Strength Shoulder Manual Muscle Testing Right Flexion 4 Good Abduction (C5) 4 Good External Rotation 4 Good Internal Rotation 4 Good Left Flexion 3+ Fair+ Abduction (C5) 3+ Fair+ External Rotation 3+ Fair+ Internal Rotation 3+ Fair+ Comments IE: 3/5; Did not formally assess strength due to precautions; pt able to lift arm against gravity through ROM 03/13/24: 3+ for all; pain free PT-OP-Q Treatments Start: 02/14/24 12:51 Freq: Status: Active Protocol: Document 03/20/24 14:37 AB (Rec: 03/20/24 16:26 AB [id number]) Therapeutic Exercises Supine Exercises rhythmic stabilization Supine Exercise Name light resistance Side bilateral Equipment Used holding small blue ethiopian ball Reps/Minutes 30 sec Comments reports no hitch supine shoulder flexion Supine Exercise Name miniband- flex + ER HEP Side bilateral Resistance level one light blue band Reps/Minutes X10 Comments reports no hitch or pain Sidelying Exercises open book Sidelying Exercise Name HEP Side bilateral Reps/Minutes X5 for 5 breaths Comments Verbal and tactile cues Sitting Exercises short sit Sitting Exercise Name resting on forearm to left then to upright then to right HEP Side bilateral Reps/Minutes X10 Comments verbal cues, monitored for pain Standing Exercises rhythmic stabilization with therabar Standing Exercise Name [place] position Side left Resistance yellow therabar Reps/Minutes 60 sec wall push up plus Standing Exercise Name modified plank plus (serratus) HEP Side bilateral Reps/Minutes X10 Comments tactile cues and verbal cues for scapular setting scapular strengthening Standing Exercise Name 1. row 2. scapular depression 3.high row Side bilateral Equipment Used level4 band HEP Reps/Minutes X15 each Manual Therapy Treatment Soft Tissue Mobilization L shoulder Body Location post cuff, lat, pec, UT, LS Mobilization Type Rolling,Strumming Intensity/Depth Superficial Body Position Hooklying Comments Tolerates well, monitored for pain. Increased restrictions of pec and lat, rhomboid. No tenderness Joint Mobilizations L ribs Joint 1st Direction caudal Grade III Body Position Sidelying Reps/Duration 10 ea L scapular Direction adduction/retraction, elevation/depression Grade III Body Position Sidelying Reps/Duration 20 ea L GHJ Direction post, inf Grade III Body Position Hooklying Reps/Duration 4x10 ea PT-OP-T Assessment and Plan Start: 02/14/24 12:51 Freq: Status: Active Protocol: Document 03/20/24 14:37 AB (Rec: 03/20/24 16:26 AB [id number]) Physical Therapy Assessment Goals Four Impairment ADL ability impaired; quickdash score 18.2% impairment Seconds Grader Goal (LTG) Pt will report <10% impairment on quickdash in order to demonstrate minimal limitations with household ADLs due to L shoulder 03/13/24: 18.2% impairment LTG Duration 12 weeks Three Impairment sleeping impaired; waking 2x/ night Short Term Goal (STG) Pt will report that she is waking fewer than 1x/night due to L shoulder pain to demonstrate improved symptom management 03/09/24: pt has not woke up due to shoulder pain for last 3-4 days, not taking medication to manage pain 03/13/24: reports not waking up at night due to L shoulder STG Duration 6 weeks MET Seconds Grader Goal (LTG) Pt will report that she is waking fewer than 3 nights/wk due to L shoulder pain to demonstrate improved symptom management 03/13/24: reports not waking up at night due to L shoulder LTG Duration 12 weeks Two Impairment L shoulder strength impaired: currently 3/5 all directions Short Term Goal (STG) Pt will improve L shoulder global strength to at least 4- /5 MMT globally in order to demonstrate improved strength for lifting and carrying ADLs 03/13/24: 3+/5 for all STG Duration 8 weeks PROGRESSING 03/13/24 Seconds Grader Goal (LTG) Pt will improve L shoulder global strength to at least 4+ /5 MMT globally in order to demonstrate improved strength for lifting and carrying ADLs LTG Duration 12 weeks One Impairment L shoulder AROM impaired: 140 deg flex and abd Seconds Grader Goal (LTG) Pt will improve L shoulder flexion and abduction AROM to at least 150 deg or better in order to be comparable to LUE and to promote improved ROM for reaching, lifting, dressing/grooming ADLs 03/13/24: 164 deg flex, 170 deg abd, C7 ER, T12 IR apley LTG Duration 12 weeks MET Assessment Summary Assessment AROM 161 deg left shoulder flexion end of session, reports having no pain end of session and no hitching throughout session. Physical Therapy Plan Frequency and Duration Frequency of Treatment 2x/Week Duration of treatment (weeks) 12 Plan of Care Start Date 02/14/24 Plan of Care End Date 05/11/24 Next Visit Focus/Plan Next Note Type Treatment Note Next Visit Plan update HEP/ possibly wall push up plus to HEP. assess casie to HEP progression previous session. Progress per protocol . Cont w/ rhythmic stab, Progress per protocol as appropriate; revisit early stages of protocol for correct execution Manual: gentle shoulder mobilizations helga inf glide, soft tissue mobilization per surgeon note on 02/08/24, pt able to slowly progress into WBAT
--- NOTE | 2024-03-23 12:19 | PT.OTN ---
Current Diagnoses Pain in left shoulder (03/23/24) Stiffness of left shoulder, not elsewhere classified (03/23/24) Weakness (03/23/24) Strain of muscle(s) and tendon(s) of the rotator cuff of left shoulder, subsequent encounter (03/23/24) Physical Therapy Treatment Note PT-OP-A Visit Information Start: 02/14/24 12:51 Freq: Status: Active Protocol: Document 03/23/24 08:59 AB (Rec: 03/23/24 12:19 AB [id number]) Out-Patient Physical Therapy Visit Information Visit Information Visit Type Treatment Note Visit Note Access Code [id number] 08/30 for pn Visit Start Time 11:34 Visit Stop Time 12:15 Visit Number 10 Number of TAP AND DIE MAKER TECHNICIAN Visits 3 Evaluation Information Evaluation Date 02/14/24 Precautions Precautions s/p L shoulder arthroscopy with rotator cuff and proximal biceps tendon repair, DOS 12/28 6 weeks: 02/09/24, 8 weeks 02/22, 12 weeks 03/22/24 PMH brain tumor, joint replacement, back and neck pain, headaches, TBI/concusion PT-OP-B Current Condition Start: 02/14/24 12:51 Freq: Status: Active Protocol: Document 02/14/24 14:31 NM (Rec: 02/14/24 15:47 NM [id number]) Current Condition History of Current Condition Onset Date DOS 12/29/23 Current Complaints pain, limited strength and ROM , decreased ADLs History of Current Condition Pt has L shoulder arthroscopy and rotator cuff revision on . She states that they reinforced the rotator cuff and she had a tear in the ligaments away from the muscle in the biceps. Pt had a rotator repair in 2021, reports no complications during that time. She reports that retore her muscles after lifting a patio heater when lifting back in October 2023; states that she felt a a burning sensation. She went to see Dr. Melo Azevedo last week for follow up, reports that Dr in pleased except for not wearing sling; reports that pt stopped wearing her sling 3 weeks ago. Reports tenderness along anterior shoulder near biceps. Reports no falls. Prior to stopping wearing sling, she was wearing time clock mechanic (d/c from pillow sling at 2 weeks); no signs of infections. Pt reports that she has been going off of sheet protocol; reports no pain or discomfort. Pt reports that she has been actively using her arm since d/c sling. She lives alone. She is retired. She is icing for pain , not on any medication for pain. Pt reports that she has not really been lifting anything with her L arm except for carrying her clothes, which causes discomfort. She has a follow up with her surgeon in March. Pt is right handed. Reports difficulty mild difficulty with dressing, brushing dog Treatment Goals Patient/Caregiver Goals ROM, strength Current Functional Impairments (Reported) Functional Limitations- ADL's dressing, grooming Functional Limitations- Work/School retired Functional Limitations- Recreation/ brushing dog, lifting, Hobbies carrying laundry Functional Limitations- Other sleepinx/day (in bed: on L side and stomach), was sleeping in recliner or with body pillow PT-OP-C Subjective Start: 02/14/24 12:51 Freq: Status: Active Protocol: Document 03/23/24 08:59 AB (Rec: 03/23/24 12:19 AB [id number]) OP-PT Subjective Patient Comments Patient Comments Patient reports the shoulder is better, no longer hitching. Patient reports she moved her post op appointment to Apr 13 . AROM 162 deg AROM left shoulder flexion. Patient reports having no pain with walking, and is walking daily. PT-OP-F Manual Assessment Start: 02/14/24 12:51 Freq: Status: Active Protocol: Document 02/14/24 14:31 NM (Rec: 02/14/24 15:47 NM [id number]) Manual Assessments Soft Tissue Assessment Soft Tissue Mobility Assessment Increased lat and upper trap/ levator scapula tightness. Tenderness with small bulge over distal/middle muscle belly of biceps, reduced with gentle mobilization Joint Mobility Assessment Joint Mobility Assessment Decreased inferior glide L shoulder. Increased anterior humeral positioning in both resting posture and during AROM Other Manual Assessments Other Manual Assessments Distal biceps tendon intact via hook test, no edita sign present for proximal biceps PT-OP-H Neuro Start: 02/14/24 12:51 Freq: Status: Active Protocol: Document 02/14/24 14:31 NM (Rec: 02/14/24 15:47 NM [id number]) Sensation Evaluation Comments Summary Comments BUE equally intact to light touch sensation PT-OP-J Posture/Palpation/Skin Start: 02/14/24 12:51 Freq: Status: Active Protocol: Document 02/14/24 14:31 NM (Rec: 02/14/24 15:47 NM [id number]) Posture Evaluation Position Standing Head/C-Spine Posture Forward Head Shoulder Posture (L) Rounded,(R) Rounded,(L) Forward,(R) Forward Scapula Posture (R) Neutral,(L) Retracted,(R) Elevated Arm Posture (L) Internally Rotated,(R) Internally Rotated Pelvis Posture Anteriorly Tilted Knee Posture (L) Genu Valgus,(R) Genu Valgus Palpation Assessment Location L shoulder Palpation Details Tenderness along biceps muscle belly No tenderness along rotator cuff muscles, incisions, rhomboids, periscapulars Increased tightness of upper trap, levator scapula Skin Assessment Incisional Assessment Incision Appearance/Comments Scars intact, healing without signs of infection. Multiple scars present along anterior, lateral, and posterior shoulder. Mild adhesions of anterior shoulder scars. One slight open scab/wound (not scar) on posterior shoulder. Keloid scarring visible from previous surgeries PT-OP-K Range of Motion Start: 02/14/24 12:51 Freq: Status: Active Protocol: Document 03/13/24 09:48 NM (Rec: 03/13/24 10:45 NM [id number]) Shoulder Goniometric Range of Motion Shoulder Right Flexion 150 Extension 60 Abduction 170 External Rotation at 90 degrees 80 Abduction External Rotation at 0 degrees Abduction 80 Internal Rotation Behind Back (text) T7 Comments ER C7 Left AROM Flexion 140 Abduction 140 External Rotation at 0 degrees Abduction 50 Internal Rotation Behind Back (text) T10 Comments discomfort with abduction; tight with ER ER to occiput 03/13/24: 164 deg flex, 170 deg abd, C7 ER, T12 IR apley Left PROM Flexion 150 Abduction 110 External Rotation at 0 degrees Abduction 75 PT-OP-M Strength Start: 02/14/24 12:51 Freq: Status: Active Protocol: Document 03/13/24 09:48 NM (Rec: 03/13/24 10:45 NM [id number]) Shoulder Strength Shoulder Manual Muscle Testing Right Flexion 4 Good Abduction (C5) 4 Good External Rotation 4 Good Internal Rotation 4 Good Left Flexion 3+ Fair+ Abduction (C5) 3+ Fair+ External Rotation 3+ Fair+ Internal Rotation 3+ Fair+ Comments IE: 3/5; Did not formally assess strength due to precautions; pt able to lift arm against gravity through ROM 03/13/24: 3+ for all; pain free PT-OP-Q Treatments Start: 02/14/24 12:51 Freq: Status: Active Protocol: Document 03/23/24 08:59 AB (Rec: 03/23/24 12:19 AB [id number]) Therapeutic Exercises Supine Exercises rhythmic stabilization Supine Exercise Name light resistance Side bilateral Equipment Used holding small blue swedish ball Reps/Minutes 30 sec Comments reports no hitch Sidelying Exercises shoulder abduction Side left Reps/Minutes X10 Comments verbal cues, monitored for pain open book Sidelying Exercise Name HEP Side bilateral Reps/Minutes X5 for 5 breaths Comments Verbal and tactile cues Sitting Exercises biceps curls Side bilateral Resistance 1 lb then 2 lb Reps/Minutes X15 X 2 Comments monitored for pain short sit Sitting Exercise Name resting on forearm to left then to upright then to right HEP Side bilateral Reps/Minutes X15 Comments verbal cues, monitored for pain Standing Exercises rhythmic stabilization with therabar Standing Exercise Name Statue of [place] position Side left Resistance yellow therabar Reps/Minutes 60 sec wall push up plus Standing Exercise Name push up plus Side bilateral Reps/Minutes X10 Comments tactile cues and verbal cues for scapular setting Manual Therapy Treatment Soft Tissue Mobilization L shoulder Body Location post cuff, lat, pec, UT, LS Mobilization Type Rolling,Strumming Intensity/Depth Superficial Body Position Hooklying Comments Tolerates well, monitored for pain. Increased restrictions of pec and lat, rhomboid. No tenderness Joint Mobilizations L scapular Direction adduction/retraction, elevation/depression Grade III Body Position Sidelying Reps/Duration 20 ea L GHJ Direction post, inf Grade III Body Position Hooklying Reps/Duration 4x10 ea PT-OP-T Assessment and Plan Start: 02/14/24 12:51 Freq: Status: Active Protocol: Document 03/23/24 08:59 AB (Rec: 03/23/24 12:19 AB [id number]) Physical Therapy Assessment Goals Four Impairment ADL ability impaired; quickdash score 18.2% impairment Longterm Goal (LTG) Pt will report <10% impairment on quickdash in order to demonstrate minimal limitations with household ADLs due to L shoulder 03/13/24: 18.2% impairment LTG Duration 12 weeks Three Impairment sleeping impaired; waking 2x/ night Short Term Goal (STG) Pt will report that she is waking fewer than 1x/night due to L shoulder pain to demonstrate improved symptom management 03/09/24: pt has not woke up due to shoulder pain for last 3-4 days, not taking medication to manage pain 03/13/24: reports not waking up at night due to L shoulder STG Duration 6 weeks MET Cryptanalyst Goal (LTG) Pt will report that she is waking fewer than 3 nights/wk due to L shoulder pain to demonstrate improved symptom management 03/13/24: reports not waking up at night due to L shoulder 03/23/2024 Patient reports having no pain with walking, and is walking daily. LTG Duration 12 weeks Two Impairment L shoulder strength impaired: currently 3/5 all directions Short Term Goal (STG) Pt will improve L shoulder global strength to at least 4- /5 MMT globally in order to demonstrate improved strength for lifting and carrying ADLs 03/13/24: 3+/5 for all STG Duration 8 weeks PROGRESSING 03/13/24 Cryptanalyst Goal (LTG) Pt will improve L shoulder global strength to at least 4+ /5 MMT globally in order to demonstrate improved strength for lifting and carrying ADLs LTG Duration 12 weeks One Impairment L shoulder AROM impaired: 140 deg flex and abd Cryptanalyst Goal (LTG) Pt will improve L shoulder flexion and abduction AROM to at least 150 deg or better in order to be comparable to LUE and to promote improved ROM for reaching, lifting, dressing/grooming ADLs 03/13/24: 164 deg flex, 170 deg abd, C7 ER, T12 IR apley LTG Duration 12 weeks MET Assessment Summary Assessment AROM left shoulder flexion 163 deg with reports of having no pain end of session. Patient reports she is able to walk daily without increased shoulder pain and has not had the hitching sensation since prior to previous session with this therapist. Physical Therapy Plan Frequency and Duration Frequency of Treatment 2x/Week Duration of treatment (weeks) 12 Plan of Care Start Date 02/14/24 Plan of Care End Date 05/11/24 Next Visit Focus/Plan Next Note Type Treatment Note Next Visit Plan update HEP/ assess casie to HEP progression previous session. Progress per protocol. Cont w/ rhythmic stab, Progress per protocol as appropriate; revisit early stages of protocol for correct execution Manual: gentle shoulder mobilizations helga inf glide, soft tissue mobilization per surgeon note on 02/08/24, pt able to slowly progress into WBAT
--- NOTE | 2024-03-26 12:24 | PT.OTN ---
Current Diagnoses Pain in left shoulder (03/26/24) Stiffness of left shoulder, not elsewhere classified (03/26/24) Weakness (03/26/24) Strain of muscle(s) and tendon(s) of the rotator cuff of left shoulder, subsequent encounter (03/26/24) Physical Therapy Treatment Note PT-OP-A Visit Information Start: 02/14/24 12:51 Freq: Status: Active Protocol: Document 03/26/24 11:33 NM (Rec: 03/26/24 12:23 NM [id number]) Out-Patient Physical Therapy Visit Information Visit Information Visit Type Treatment Note Visit Note 09/29 for pn Visit Start Time 11:33 Visit Stop Time 12:15 Visit Number 11 Evaluation Information Evaluation Date 02/14/24 Precautions Precautions s/p L shoulder arthroscopy with rotator cuff and proximal biceps tendon repair, DOS 12/28 6 weeks: 02/09/24, 8 weeks 02/22, 12 weeks 03/22/24 PMH brain tumor, joint replacement, back and neck pain, headaches, TBI/concusion PT-OP-B Current Condition Start: 02/14/24 12:51 Freq: Status: Active Protocol: Document 02/14/24 14:31 NM (Rec: 02/14/24 15:47 NM [id number]) Current Condition History of Current Condition Onset Date DOS 12/29/23 Current Complaints pain, limited strength and ROM , decreased ADLs History of Current Condition Pt has L shoulder arthroscopy and rotator cuff revision on . She states that they reinforced the rotator cuff and she had a tear in the ligaments away from the muscle in the biceps. Pt had a rotator repair in 2021, reports no complications during that time. She reports that retore her muscles after lifting a patio heater when lifting back in October 2023; states that she felt a a burning sensation. She went to see Dr. Melo Azevedo last week for follow up, reports that Dr in pleased except for not wearing sling; reports that pt stopped wearing her sling 3 weeks ago. Reports tenderness along anterior shoulder near biceps. Reports no falls. Prior to stopping wearing sling, she was wearing time recorder (d/c from pillow sling at 2 weeks); no signs of infections. Pt reports that she has been going off of sheet protocol; reports no pain or discomfort. Pt reports that she has been actively using her arm since d/c sling. She lives alone. She is retired. She is icing for pain , not on any medication for pain. Pt reports that she has not really been lifting anything with her L arm except for carrying her clothes, which causes discomfort. She has a follow up with her surgeon in March. Pt is right handed. Reports difficulty mild difficulty with dressing, brushing dog Treatment Goals Patient/Caregiver Goals ROM, strength Current Functional Impairments (Reported) Functional Limitations- ADL's dressing, grooming Functional Limitations- Work/School retired Functional Limitations- Recreation/ brushing dog, lifting, Hobbies carrying laundry Functional Limitations- Other sleepinx/day (in bed: on L side and stomach), was sleeping in recliner or with body pillow PT-OP-C Subjective Start: 02/14/24 12:51 Freq: Status: Active Protocol: Document 03/26/24 11:33 NM (Rec: 03/26/24 12:23 NM [id number]) OP-PT Subjective Patient Comments Patient Comments Pt reports no L shoulder pain, no hitches in L shoulder. [place] good after last session. PT-OP-F Manual Assessment Start: 02/14/24 12:51 Freq: Status: Active Protocol: Document 02/14/24 14:31 NM (Rec: 02/14/24 15:47 NM [id number]) Manual Assessments Soft Tissue Assessment Soft Tissue Mobility Assessment Increased lat and upper trap/ levator scapula tightness. Tenderness with small bulge over distal/middle muscle belly of biceps, reduced with gentle mobilization Joint Mobility Assessment Joint Mobility Assessment Decreased inferior glide L shoulder. Increased anterior humeral positioning in both resting posture and during AROM Other Manual Assessments Other Manual Assessments Distal biceps tendon intact via hook test, no edita sign present for proximal biceps PT-OP-H Neuro Start: 02/14/24 12:51 Freq: Status: Active Protocol: Document 02/14/24 14:31 NM (Rec: 02/14/24 15:47 NM [id number]) Sensation Evaluation Comments Summary Comments BUE equally intact to light touch sensation PT-OP-J Posture/Palpation/Skin Start: 02/14/24 12:51 Freq: Status: Active Protocol: Document 02/14/24 14:31 NM (Rec: 02/14/24 15:47 NM [id number]) Posture Evaluation Position Standing Head/C-Spine Posture Forward Head Shoulder Posture (L) Rounded,(R) Rounded,(L) Forward,(R) Forward Scapula Posture (R) Neutral,(L) Retracted,(R) Elevated Arm Posture (L) Internally Rotated,(R) Internally Rotated Pelvis Posture Anteriorly Tilted Knee Posture (L) Genu Valgus,(R) Genu Valgus Palpation Assessment Location L shoulder Palpation Details Tenderness along biceps muscle belly No tenderness along rotator cuff muscles, incisions, rhomboids, periscapulars Increased tightness of upper trap, levator scapula Skin Assessment Incisional Assessment Incision Appearance/Comments Scars intact, healing without signs of infection. Multiple scars present along anterior, lateral, and posterior shoulder. Mild adhesions of anterior shoulder scars. One slight open scab/wound (not scar) on posterior shoulder. Keloid scarring visible from previous surgeries PT-OP-K Range of Motion Start: 02/14/24 12:51 Freq: Status: Active Protocol: Document 03/13/24 09:48 NM (Rec: 03/13/24 10:45 NM [id number]) Shoulder Goniometric Range of Motion Shoulder Right Flexion 150 Extension 60 Abduction 170 External Rotation at 90 degrees 80 Abduction External Rotation at 0 degrees Abduction 80 Internal Rotation Behind Back (text) T7 Comments ER C7 Left AROM Flexion 140 Abduction 140 External Rotation at 0 degrees Abduction 50 Internal Rotation Behind Back (text) T10 Comments discomfort with abduction; tight with ER ER to occiput 03/13/24: 164 deg flex, 170 deg abd, C7 ER, T12 IR apley Left PROM Flexion 150 Abduction 110 External Rotation at 0 degrees Abduction 75 PT-OP-M Strength Start: 02/14/24 12:51 Freq: Status: Active Protocol: Document 03/13/24 09:48 NM (Rec: 03/13/24 10:45 NM [id number]) Shoulder Strength Shoulder Manual Muscle Testing Right Flexion 4 Good Abduction (C5) 4 Good External Rotation 4 Good Internal Rotation 4 Good Left Flexion 3+ Fair+ Abduction (C5) 3+ Fair+ External Rotation 3+ Fair+ Internal Rotation 3+ Fair+ Comments IE: 3/5; Did not formally assess strength due to precautions; pt able to lift arm against gravity through ROM 03/13/24: 3+ for all; pain free PT-OP-Q Treatments Start: 02/14/24 12:51 Freq: Status: Active Protocol: Document 03/26/24 11:33 NM (Rec: 03/26/24 12:23 NM [id number]) Therapeutic Exercises Sidelying Exercises ER Side left Resistance AROM > 1# Equipment Used towel roll btwn body Reps/Minutes 10 AROM, x8 w/ 1# Comments pain freee Sitting Exercises belly press Sitting Exercise Name subscapular strengthening Side left Reps/Minutes 10x2 Comments cued less ant shoulder, more ant elbow Standing Exercises pallof Standing Exercise Name trialed: 1. walkouts (close to body), 2. press Side bilateral Resistance level 1 band (2 bands) Reps/Minutes 1. 8 ea, 2. 10 ea Comments pain free; cued for form low robber Standing Exercise Name 45 deg abd Side bilateral Resistance AROM > level 1 band Reps/Minutes [id number], 10x3 w/ band Comments pain free; cued form rhythmic stabilization with therabar Standing Exercise Name 1. statue of [place], 2. 90/90 abd Side left Resistance yellow therabar Reps/Minutes 30 sec ea Comments no pain pec stretch Standing Exercise Name progressed to 90 deg w/ arm ext (HEP - no HO given) Side left Reps/Minutes 2x30 ea wall push up plus Standing Exercise Name push up plus (HEP review) Side bilateral Reps/Minutes 2x10 Comments tactile cues and verbal cues for scapular setting; pain free Manual Therapy Treatment Consent Patient gave verbal consent for manual Yes treatment Soft Tissue Mobilization L shoulder Body Location post cuff, lat, pec, UT, LS Mobilization Type Rolling,Strumming Intensity/Depth Superficial Body Position Hooklying Comments Tolerates well, monitored for pain. Increased restrictions of pec and lat, rhomboid. No tenderness 168 deg flex, 170 deg abd, 60 deg ER Joint Mobilizations L scapular Direction adduction/retraction, elevation/depression Grade III Body Position Sidelying Reps/Duration 20 ea L GHJ Direction post, inf Grade III Body Position Hooklying Reps/Duration 4x10 ea PT-OP-T Assessment and Plan Start: 02/14/24 12:51 Freq: Status: Active Protocol: Document 03/26/24 11:33 NM (Rec: 03/26/24 12:23 NM [id number]) Physical Therapy Assessment Goals Four Impairment ADL ability impaired; quickdash score 18.2% impairment Residential Goal (LTG) Pt will report <10% impairment on quickdash in order to demonstrate minimal limitations with household ADLs due to L shoulder 03/13/24: 18.2% impairment LTG Duration 12 weeks Three Impairment sleeping impaired; waking 2x/ night Short Term Goal (STG) Pt will report that she is waking fewer than 1x/night due to L shoulder pain to demonstrate improved symptom management 03/09/24: pt has not woke up due to shoulder pain for last 3-4 days, not taking medication to manage pain 03/13/24: reports not waking up at night due to L shoulder STG Duration 6 weeks MET Printing Plate Setter Goal (LTG) Pt will report that she is waking fewer than 3 nights/wk due to L shoulder pain to demonstrate improved symptom management 03/13/24: reports not waking up at night due to L shoulder 03/23/2024 Patient reports having no pain with walking, and is walking daily. 03/26/24: no pain in shoulder with sleeping LTG Duration 12 weeks MET Two Impairment L shoulder strength impaired: currently 3/5 all directions Short Term Goal (STG) Pt will improve L shoulder global strength to at least 4- /5 MMT globally in order to demonstrate improved strength for lifting and carrying ADLs 03/13/24: 3+/5 for all STG Duration 8 weeks PROGRESSING 03/13/24 Residential Goal (LTG) Pt will improve L shoulder global strength to at least 4+ /5 MMT globally in order to demonstrate improved strength for lifting and carrying ADLs LTG Duration 12 weeks One Impairment L shoulder AROM impaired: 140 deg flex and abd Residential Goal (LTG) Pt will improve L shoulder flexion and abduction AROM to at least 150 deg or better in order to be comparable to LUE and to promote improved ROM for reaching, lifting, dressing/grooming ADLs 03/13/24: 164 deg flex, 170 deg abd, C7 ER, T12 IR apley LTG Duration 12 weeks MET Assessment Summary Assessment Pt tolerated session well, no pain in L shoulder or hitching. Progressed resistance with sidelying ER but not for HEP since increased number of sets with ER/IR on HEP (not in clinic). Trialed low robber with AROM/ band and pallof progression per protocol; no shoulder pain , minimal cues for form. Improved scapular position and control with push ups and rhythmic stabilization. Pt has L shoulder 168 deg flex, 170 deg abd, 60 deg ERDianna Merlos would continue to benefit from skilled PT for progressive L shoulder AROM and strengthening per protocol in order to improve ability to perform lifting and reaching ADLs/IADLs without limitation. Physical Therapy Plan Frequency and Duration Frequency of Treatment 2x/Week Duration of treatment (weeks) 12 Plan of Care Start Date 02/14/24 Plan of Care End Date 05/11/24 Therapeutic Interventions Therapeutic Interventions Balance Training,Gait Training ,Home Exercise Program,Joint Mobilizations,Manual Therapy, Neuromuscular Re-education, Orthotic/Prosthetic Management ,Patient/Caregiver Education, Self-Care/Home Management, Sensory Integration,Soft Tissue Mobilization,Taping, Therapeutic Activities, Therapeutic Exercises Modalities Cold Pack/Ice Massage,Hot Packs Next Visit Focus/Plan Next Note Type Treatment Note Next Visit Plan update HEP as needed. Trial up to 3rd set of ER/IR at band level. Cont with core and progress pect stretch to inc abd if casie well. serratus wall slides with band. Initiate supine PNF > progress to banded when appropriate. Progress per protocol. Cont w / rhythmic stab -trial body blade if approp. Progress per protocol as appropriate Manual: gentle shoulder mobilizations helga inf glide, soft tissue mobilization per surgeon note on 02/08/24, pt able to slowly progress into WBAT
--- NOTE | 2024-03-29 10:37 | PT.OTN ---
Current Diagnoses Pain in left shoulder (03/29/24) Stiffness of left shoulder, not elsewhere classified (03/29/24) Weakness (03/29/24) Strain of muscle(s) and tendon(s) of the rotator cuff of left shoulder, subsequent encounter (03/29/24) Physical Therapy Treatment Note PT-OP-A Visit Information Start: 02/14/24 12:51 Freq: Status: Active Protocol: Document 03/29/24 08:07 AB (Rec: 03/29/24 10:37 AB [id number]) Out-Patient Physical Therapy Visit Information Visit Information Visit Type Treatment Note Visit Note 10/30 for pn Visit Start Time 09:48 Visit Stop Time 10:31 Visit Number 12 Number of EDUCATION DEAN Visits 1 Evaluation Information Evaluation Date 02/14/24 Precautions Precautions s/p L shoulder arthroscopy with rotator cuff and proximal biceps tendon repair, DOS 12/28 6 weeks: 02/09/24, 8 weeks 02/22, 12 weeks 03/22/24 PMH brain tumor, joint replacement, back and neck pain, headaches, TBI/concusion PT-OP-B Current Condition Start: 02/14/24 12:51 Freq: Status: Active Protocol: Document 02/14/24 14:31 NM (Rec: 02/14/24 15:47 NM [id number]) Current Condition History of Current Condition Onset Date DOS 12/29/23 Current Complaints pain, limited strength and ROM , decreased ADLs History of Current Condition Pt has L shoulder arthroscopy and rotator cuff revision on . She states that they reinforced the rotator cuff and she had a tear in the ligaments away from the muscle in the biceps. Pt had a rotator repair in 2021, reports no complications during that time. She reports that retore her muscles after lifting a patio heater when lifting back in September/October 2023; states that she felt a a burning sensation. She went to see Dr. Melo Azevedo last week for follow up, reports that Dr in pleased except for not wearing sling; reports that pt stopped wearing her sling 3 weeks ago. Reports tenderness along anterior shoulder near biceps. Reports no falls. Prior to stopping wearing sling, she was wearing gun welder (d/c from pillow sling at 2 weeks); no signs of infections. Pt reports that she has been going off of sheet protocol; reports no pain or discomfort. Pt reports that she has been actively using her arm since d/c sling. She lives alone. She is retired. She is icing for pain , not on any medication for pain. Pt reports that she has not really been lifting anything with her L arm except for carrying her clothes, which causes discomfort. She has a follow up with her surgeon in March. Pt is right handed. Reports difficulty mild difficulty with dressing, brushing dog Treatment Goals Patient/Caregiver Goals ROM, strength Current Functional Impairments (Reported) Functional Limitations- ADL's dressing, grooming Functional Limitations- Work/School retired Functional Limitations- Recreation/ brushing dog, lifting, Hobbies carrying laundry Functional Limitations- Other sleepinx/day (in bed: on L side and stomach), was sleeping in recliner or with body pillow PT-OP-C Subjective Start: 02/14/24 12:51 Freq: Status: Active Protocol: Document 03/29/24 08:07 AB (Rec: 03/29/24 10:37 AB [id number]) OP-PT Subjective Patient Comments Patient Comments AROM left shoulder flexion 161 deg, reports shoulder is great, has been having no pain . PT-OP-F Manual Assessment Start: 02/14/24 12:51 Freq: Status: Active Protocol: Document 02/14/24 14:31 NM (Rec: 02/14/24 15:47 NM [id number]) Manual Assessments Soft Tissue Assessment Soft Tissue Mobility Assessment Increased lat and upper trap/ levator scapula tightness. Tenderness with small bulge over distal/middle muscle belly of biceps, reduced with gentle mobilization Joint Mobility Assessment Joint Mobility Assessment Decreased inferior glide L shoulder. Increased anterior humeral positioning in both resting posture and during AROM Other Manual Assessments Other Manual Assessments Distal biceps tendon intact via hook test, no edita sign present for proximal biceps PT-OP-H Neuro Start: 02/14/24 12:51 Freq: Status: Active Protocol: Document 02/14/24 14:31 NM (Rec: 02/14/24 15:47 NM [id number]) Sensation Evaluation Comments Summary Comments BUE equally intact to light touch sensation PT-OP-J Posture/Palpation/Skin Start: 02/14/24 12:51 Freq: Status: Active Protocol: Document 02/14/24 14:31 NM (Rec: 02/14/24 15:47 NM [id number]) Posture Evaluation Position Standing Head/C-Spine Posture Forward Head Shoulder Posture (L) Rounded,(R) Rounded,(L) Forward,(R) Forward Scapula Posture (R) Neutral,(L) Retracted,(R) Elevated Arm Posture (L) Internally Rotated,(R) Internally Rotated Pelvis Posture Anteriorly Tilted Knee Posture (L) Genu Valgus,(R) Genu Valgus Palpation Assessment Location L shoulder Palpation Details Tenderness along biceps muscle belly No tenderness along rotator cuff muscles, incisions, rhomboids, periscapulars Increased tightness of upper trap, levator scapula Skin Assessment Incisional Assessment Incision Appearance/Comments Scars intact, healing without signs of infection. Multiple scars present along anterior, lateral, and posterior shoulder. Mild adhesions of anterior shoulder scars. One slight open scab/wound (not scar) on posterior shoulder. Keloid scarring visible from previous surgeries PT-OP-K Range of Motion Start: 02/14/24 12:51 Freq: Status: Active Protocol: Document 03/13/24 09:48 NM (Rec: 03/13/24 10:45 NM [id number]) Shoulder Goniometric Range of Motion Shoulder Right Flexion 150 Extension 60 Abduction 170 External Rotation at 90 degrees 80 Abduction External Rotation at 0 degrees Abduction 80 Internal Rotation Behind Back (text) T7 Comments ER C7 Left AROM Flexion 140 Abduction 140 External Rotation at 0 degrees Abduction 50 Internal Rotation Behind Back (text) T10 Comments discomfort with abduction; tight with ER ER to occiput 03/13/24: 164 deg flex, 170 deg abd, C7 ER, T12 IR apley Left PROM Flexion 150 Abduction 110 External Rotation at 0 degrees Abduction 75 PT-OP-M Strength Start: 02/14/24 12:51 Freq: Status: Active Protocol: Document 03/13/24 09:48 NM (Rec: 03/13/24 10:45 NM [id number]) Shoulder Strength Shoulder Manual Muscle Testing Right Flexion 4 Good Abduction (C5) 4 Good External Rotation 4 Good Internal Rotation 4 Good Left Flexion 3+ Fair+ Abduction (C5) 3+ Fair+ External Rotation 3+ Fair+ Internal Rotation 3+ Fair+ Comments IE: 3/5; Did not formally assess strength due to precautions; pt able to lift arm against gravity through ROM 03/13/24: 3+ for all; pain free PT-OP-Q Treatments Start: 02/14/24 12:51 Freq: Status: Active Protocol: Document 03/29/24 08:07 AB (Rec: 03/29/24 10:37 AB [id number]) Therapeutic Exercises Supine Exercises supine shoulder flexion Supine Exercise Name miniband- flex + ER HEP Side bilateral Resistance level one light blue band Reps/Minutes X10 Comments reports no hitch or pain Sitting Exercises belly press Sitting Exercise Name subscapular strengthening Side left Reps/Minutes 10x2 Comments cued less ant shoulder, more ant elbow short sit Sitting Exercise Name resting on forearm to left then to upright then to right HEP Side bilateral Reps/Minutes X15 Comments verbal cues, monitored for pain Standing Exercises rhythmic stabilization with therabar Standing Exercise Name 1. statue of liberty, 2. 90/90 abd Side left Resistance yellow therabar Reps/Minutes 60 sec ea Comments no pain pec stretch Standing Exercise Name trial of 90/90, then 90 abd, then ~80 deg abd Side left Equipment Used 60 sec to HEP Reps/Minutes 60 sec X 2 at ~80 deg abd Comments monitored for location of sensation of stretch shoulder ER and IR Standing Exercise Name HEP review- Isotonic: 1. IR, 2 . ER Side left Resistance Level one band Reps/Minutes 10 X3 to HEP Comments monitored for pain, verbal cues to relax shoulder scapular wall slide Standing Exercise Name HEP review Reps/Minutes X10 Comments with lift off and lower without use of wall wall push up plus Standing Exercise Name push up plus (HEP review) Side bilateral Reps/Minutes X15 Comments VC for avoiding shoulder shrug scapular strengthening Standing Exercise Name 1. row 2.high row Side bilateral Equipment Used level4 band HEP Reps/Minutes X15 each Manual Therapy Treatment Consent Patient gave verbal consent for manual Yes treatment Soft Tissue Mobilization L shoulder Body Location post cuff, lat, pec, UT, LS Mobilization Type Cross-Friction,Rolling, Strumming,Sustained Pressure Intensity/Depth Superficial Body Position Hooklying Comments Tolerates well, monitored for pain. also seated Joint Mobilizations L scapular Direction adduction/retraction, elevation/depression Grade III Body Position Sidelying Reps/Duration 20 ea L GHJ Direction post, inf Grade III Body Position Hooklying Reps/Duration 4x10 ea PT-OP-T Assessment and Plan Start: 02/14/24 12:51 Freq: Status: Active Protocol: Document 03/29/24 08:07 AB (Rec: 03/29/24 10:37 AB [id number]) Physical Therapy Assessment Goals Four Impairment ADL ability impaired; quickdash score 18.2% impairment Nursing Home Goal (LTG) Pt will report <10% impairment on quickdash in order to demonstrate minimal limitations with household ADLs due to L shoulder 03/13/24: 18.2% impairment LTG Duration 12 weeks Three Impairment sleeping impaired; waking 2x/ night Short Term Goal (STG) Pt will report that she is waking fewer than 1x/night due to L shoulder pain to demonstrate improved symptom management 03/09/24: pt has not woke up due to shoulder pain for last 3-4 days, not taking medication to manage pain 03/13/24: reports not waking up at night due to L shoulder STG Duration 6 weeks MET [place] Turner Goal (LTG) Pt will report that she is waking fewer than 3 nights/wk due to L shoulder pain to demonstrate improved symptom management 03/13/24: reports not waking up at night due to L shoulder 03/23/2024 Patient reports having no pain with walking, and is walking daily. 03/26/24: no pain in shoulder with sleeping LTG Duration 12 weeks MET Two Impairment L shoulder strength impaired: currently 3/5 all directions Short Term Goal (STG) Pt will improve L shoulder global strength to at least 4- /5 MMT globally in order to demonstrate improved strength for lifting and carrying ADLs 03/13/24: 3+/5 for all STG Duration 8 weeks PROGRESSING 03/13/24 Nursing Home Goal (LTG) Pt will improve L shoulder global strength to at least 4+ /5 MMT globally in order to demonstrate improved strength for lifting and carrying ADLs LTG Duration 12 weeks One Impairment L shoulder AROM impaired: 140 deg flex and abd Die Turner Goal (LTG) Pt will improve L shoulder flexion and abduction AROM to at least 150 deg or better in order to be comparable to LUE and to promote improved ROM for reaching, lifting, dressing/grooming ADLs 03/13/24: 164 deg flex, 170 deg abd, C7 ER, T12 IR apley LTG Duration 12 weeks MET Assessment Summary Assessment Dec casie to pec stretch at 90 deg abd, feels it in shoulder vs pec, good casie with sensation at pec at ~80 deg. 165 deg AROM left shoulder flexion end of session with reports of no hitching and no pain end of session. Physical Therapy Plan Frequency and Duration Frequency of Treatment 2x/Week Duration of treatment (weeks) 12 Plan of Care Start Date 02/14/24 Plan of Care End Date 05/11/24 Next Visit Focus/Plan Next Note Type Treatment Note Next Visit Plan update HEP as needed. Assess casie to 3rd set of ER/IR at band level. Cont with core and progress pect stretch to inc 90 abd (if casie IE felt at pec vs shoulder) well. serratus wall slides with band. Initiate supine PNF > progress to banded when appropriate. Progress per protocol. Cont w / rhythmic stab -trial body blade if approp. Progress per protocol as appropriate Manual: gentle shoulder mobilizations helga inf glide, soft tissue mobilization per surgeon note on 02/08/24, pt able to slowly progress into WBAT
--- NOTE | 2024-04-02 10:35 | PT.OTN ---
Current Diagnoses Pain in left shoulder (04/02/24) Stiffness of left shoulder, not elsewhere classified (04/02/24) Weakness (04/02/24) Strain of muscle(s) and tendon(s) of the rotator cuff of left shoulder, subsequent encounter (04/02/24) Physical Therapy Treatment Note PT-OP-A Visit Information Start: 02/14/24 12:51 Freq: Status: Active Protocol: Document 04/02/24 08:09 AB (Rec: 04/02/24 10:33 AB [id number]) Out-Patient Physical Therapy Visit Information Visit Information Visit Type Treatment Note Visit Note 11/29 for PN Visit Start Time 09:52 Visit Stop Time 10:30 Visit Number 13 Number of ACCOUNTS PAYABLE PAYROLL COORDINATOR Visits 2 Evaluation Information Evaluation Date 02/14/24 Precautions Precautions s/p L shoulder arthroscopy with rotator cuff and proximal biceps tendon repair, DOS 12/28 6 weeks: 02/09/24, 8 weeks 02/22, 12 weeks 03/22/24 PMH brain tumor, joint replacement, back and neck pain, headaches, TBI/concusion PT-OP-B Current Condition Start: 02/14/24 12:51 Freq: Status: Active Protocol: Document 02/14/24 14:31 NM (Rec: 02/14/24 15:47 NM [id number]) Current Condition History of Current Condition Onset Date DOS 12/29/23 Current Complaints pain, limited strength and ROM , decreased ADLs History of Current Condition Pt has L shoulder arthroscopy and rotator cuff revision on . She states that they reinforced the rotator cuff and she had a tear in the ligaments away from the muscle in the biceps. Pt had a rotator repair in 2021, reports no complications during that time. She reports that retore her muscles after lifting a patio heater when lifting back in September/October 2023; states that she felt a a burning sensation. She went to see Dr. Melo Azevedo last week for follow up, reports that Dr in pleased except for not wearing sling; reports that pt stopped wearing her sling 3 weeks ago. Reports tenderness along anterior shoulder near biceps. Reports no falls. Prior to stopping wearing sling, she was wearing kettle skimmer (d/c from pillow sling at 2 weeks); no signs of infections. Pt reports that she has been going off of sheet protocol; reports no pain or discomfort. Pt reports that she has been actively using her arm since d/c sling. She lives alone. She is retired. She is icing for pain , not on any medication for pain. Pt reports that she has not really been lifting anything with her L arm except for carrying her clothes, which causes discomfort. She has a follow up with her surgeon in March. Pt is right handed. Reports difficulty mild difficulty with dressing, brushing dog Treatment Goals Patient/Caregiver Goals ROM, strength Current Functional Impairments (Reported) Functional Limitations- ADL's dressing, grooming Functional Limitations- Work/School retired Functional Limitations- Recreation/ brushing dog, lifting, Hobbies carrying laundry Functional Limitations- Other sleepinx/day (in bed: on L side and stomach), was sleeping in recliner or with body pillow PT-OP-C Subjective Start: 02/14/24 12:51 Freq: Status: Active Protocol: Document 04/02/24 08:09 AB (Rec: 04/02/24 10:33 AB [id number]) OP-PT Subjective Patient Comments Patient Comments Chelita reports the shouder is really good. AROM left shoulder fleixon 160 deg start of session. Patient reports 3rd set of ER and IR went well . PT-OP-F Manual Assessment Start: 02/14/24 12:51 Freq: Status: Active Protocol: Document 02/14/24 14:31 NM (Rec: 02/14/24 15:47 NM [id number]) Manual Assessments Soft Tissue Assessment Soft Tissue Mobility Assessment Increased lat and upper trap/ levator scapula tightness. Tenderness with small bulge over distal/middle muscle belly of biceps, reduced with gentle mobilization Joint Mobility Assessment Joint Mobility Assessment Decreased inferior glide L shoulder. Increased anterior humeral positioning in both resting posture and during AROM Other Manual Assessments Other Manual Assessments Distal biceps tendon intact via hook test, no edita sign present for proximal biceps PT-OP-H Neuro Start: 02/14/24 12:51 Freq: Status: Active Protocol: Document 02/14/24 14:31 NM (Rec: 02/14/24 15:47 NM [id number]) Sensation Evaluation Comments Summary Comments BUE equally intact to light touch sensation PT-OP-J Posture/Palpation/Skin Start: 02/14/24 12:51 Freq: Status: Active Protocol: Document 02/14/24 14:31 NM (Rec: 02/14/24 15:47 NM [id number]) Posture Evaluation Position Standing Head/C-Spine Posture Forward Head Shoulder Posture (L) Rounded,(R) Rounded,(L) Forward,(R) Forward Scapula Posture (R) Neutral,(L) Retracted,(R) Elevated Arm Posture (L) Internally Rotated,(R) Internally Rotated Pelvis Posture Anteriorly Tilted Knee Posture (L) Genu Valgus,(R) Genu Valgus Palpation Assessment Location L shoulder Palpation Details Tenderness along biceps muscle belly No tenderness along rotator cuff muscles, incisions, rhomboids, periscapulars Increased tightness of upper trap, levator scapula Skin Assessment Incisional Assessment Incision Appearance/Comments Scars intact, healing without signs of infection. Multiple scars present along anterior, lateral, and posterior shoulder. Mild adhesions of anterior shoulder scars. One slight open scab/wound (not scar) on posterior shoulder. Keloid scarring visible from previous surgeries PT-OP-K Range of Motion Start: 02/14/24 12:51 Freq: Status: Active Protocol: Document 03/13/24 09:48 NM (Rec: 03/13/24 10:45 NM [id number]) Shoulder Goniometric Range of Motion Shoulder Right Flexion 150 Extension 60 Abduction 170 External Rotation at 90 degrees 80 Abduction External Rotation at 0 degrees Abduction 80 Internal Rotation Behind Back (text) T7 Comments ER C7 Left AROM Flexion 140 Abduction 140 External Rotation at 0 degrees Abduction 50 Internal Rotation Behind Back (text) T10 Comments discomfort with abduction; tight with ER ER to occiput 03/13/24: 164 deg flex, 170 deg abd, C7 ER, T12 IR apley Left PROM Flexion 150 Abduction 110 External Rotation at 0 degrees Abduction 75 PT-OP-M Strength Start: 02/14/24 12:51 Freq: Status: Active Protocol: Document 03/13/24 09:48 NM (Rec: 03/13/24 10:45 NM [id number]) Shoulder Strength Shoulder Manual Muscle Testing Right Flexion 4 Good Abduction (C5) 4 Good External Rotation 4 Good Internal Rotation 4 Good Left Flexion 3+ Fair+ Abduction (C5) 3+ Fair+ External Rotation 3+ Fair+ Internal Rotation 3+ Fair+ Comments IE: 3/5; Did not formally assess strength due to precautions; pt able to lift arm against gravity through ROM 03/13/24: 3+ for all; pain free PT-OP-Q Treatments Start: 02/14/24 12:51 Freq: Status: Active Protocol: Document 04/02/24 08:09 (Rec: 04/02/24 10:33 AB [id number]) Therapeutic Exercises Standing Exercises Cheer leaders Standing Exercise Name horizontal abd then at angles Side bilateral Resistance level one band Reps/Minutes X3 without band X 6 with band Comments Verbal and visual cues rhythmic stabilization with therabar Standing Exercise Name 1. statue of liberty, Side left Resistance yellow therabar Reps/Minutes 60 sec ea pec stretch Standing Exercise Name 90/90 at shoulder Side left Equipment Used 60 sec to HEP Reps/Minutes X3 Comments Monitored for location of sensation of stretch shoulder ER and IR Standing Exercise Name HEP review- Isotonic: 1. IR, 2 . ER Side left Resistance Level one band Reps/Minutes X15 X 2 Comments monitored for pain, verbal cues to relax shoulder Manual Therapy Treatment Soft Tissue Mobilization L shoulder Body Location post cuff, lat, pec, UT, LS Mobilization Type Cross-Friction,Rolling, Strumming,Sustained Pressure Intensity/Depth Superficial Body Position Hooklying Comments Tolerates well, monitored for pain. also seated Joint Mobilizations L scapular Direction adduction/retraction, elevation/depression Grade III Body Position Sidelying Reps/Duration 20 ea L GHJ Direction post, inf Grade III Body Position Hooklying Reps/Duration 4x10 ea PT-OP-T Assessment and Plan Start: 02/14/24 12:51 Freq: Status: Active Protocol: Document 04/02/24 08:09 (Rec: 04/02/24 10:33 [id number]) Physical Therapy Assessment Goals Four Impairment ADL ability impaired; quickdash score 18.2% impairment Senior Living Goal (LTG) Pt will report <10% impairment on quickdash in order to demonstrate minimal limitations with household ADLs due to L shoulder 03/13/24: 18.2% impairment LTG Duration 12 weeks Three Impairment sleeping impaired; waking 2x/ night Short Term Goal (STG) Pt will report that she is waking fewer than 1x/night due to L shoulder pain to demonstrate improved symptom management 03/09/24: pt has not woke up due to shoulder pain for last 3-4 days, not taking medication to manage pain 03/13/24: reports not waking up at night due to L shoulder STG Duration 6 weeks MET [facility] Living Goal (LTG) Pt will report that she is waking fewer than 3 nights/wk due to L shoulder pain to demonstrate improved symptom management 03/13/24: reports not waking up at night due to L shoulder 03/23/2024 Patient reports having no pain with walking, and is walking daily. 03/26/24: no pain in shoulder with sleeping LTG Duration 12 weeks MET Two Impairment L shoulder strength impaired: currently 3/5 all directions Short Term Goal (STG) Pt will improve L shoulder global strength to at least 4- /5 MMT globally in order to demonstrate improved strength for lifting and carrying ADLs 03/13/24: 3+/5 for all STG Duration 8 weeks PROGRESSING 03/13/24 Regional Project Manager Goal (LTG) Pt will improve L shoulder global strength to at least 4+ /5 MMT globally in order to demonstrate improved strength for lifting and carrying ADLs LTG Duration 12 weeks One Impairment L shoulder AROM impaired: 140 deg flex and abd Senior Living Goal (LTG) Pt will improve L shoulder flexion and abduction AROM to at least 150 deg or better in order to be comparable to LUE and to promote improved ROM for reaching, lifting, dressing/grooming ADLs 03/13/24: 164 deg flex, 170 deg abd, C7 ER, T12 IR apley LTG Duration 12 weeks MET Assessment Summary Assessment Good casie to pec stretch at 90 deg abd left UE this session. AROM 161 deg AROM left shoulder flexion, reporting having no pain end of session. Patient comments cheerleaders felt good this session. Physical Therapy Plan Frequency and Duration Frequency of Treatment 2x/Week Duration of treatment (weeks) 12 Plan of Care Start Date 02/14/24 Plan of Care End Date 05/11/24 Next Visit Focus/Plan Next Note Type Treatment Note Next Visit Plan update HEP as needed. Cont with core and progress pect stretch to inc 90 abd (if casie IE felt at pec vs shoulder) well. serratus wall slides with band. Initiate supine PNF > progress to banded when appropriate ( possibly cheerleader ex to HEP with level one band). Progress per protocol. Cont w / rhythmic stab -trial body blade if approp. Progress per protocol as appropriate Manual: gentle shoulder mobilizations helga inf glide, soft tissue mobilization per surgeon note on 02/08/24, pt able to slowly progress into WBAT
--- NOTE | 2024-04-06 15:58 | PT.OTN ---
Current Diagnoses Pain in left shoulder (04/06/24) Stiffness of left shoulder, not elsewhere classified (04/06/24) Weakness (04/06/24) Strain of muscle(s) and tendon(s) of the rotator cuff of left shoulder, subsequent encounter (04/06/24) Physical Therapy Treatment Note PT-OP-A Visit Information Start: 02/14/24 12:51 Freq: Status: Active Protocol: Document 04/06/24 07:33 NM (Rec: 04/06/24 07:34 NM [id number]) Out-Patient Physical Therapy Visit Information Visit Information Visit Type Progress Note Visit Start Time 09:47 Visit Stop Time 10:30 Visit Number 14 Evaluation Information Evaluation Date 02/14/24 Precautions Precautions s/p L shoulder arthroscopy with rotator cuff and proximal biceps tendon repair, DOS 12/28 6 weeks: 02/09/24, 8 weeks 02/22, 12 weeks 03/22/24 PMH brain tumor, joint replacement, back and neck pain, headaches, TBI/concusion PT-OP-B Current Condition Start: 02/14/24 12:51 Freq: Status: Active Protocol: Document 02/14/24 14:31 NM (Rec: 02/14/24 15:47 NM [id number]) Current Condition History of Current Condition Onset Date DOS 12/29/23 Current Complaints pain, limited strength and ROM , decreased ADLs History of Current Condition Pt has L shoulder arthroscopy and rotator cuff revision on . She states that they reinforced the rotator cuff and she had a tear in the ligaments away from the muscle in the biceps. Pt had a rotator repair in 2021, reports no complications during that time. She reports that retore her muscles after lifting a patio heater when lifting back in October 2023; states that she felt a a burning sensation. She went to see Dr. Melo Azevedo last week for follow up, reports that Dr in pleased except for not wearing sling; reports that pt stopped wearing her sling 3 weeks ago. Reports tenderness along anterior shoulder near biceps. Reports no falls. 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 Pt reports that she has been going off of sheet protocol; reports no pain or discomfort. Pt reports that she has been actively using her arm since d/c sling. She lives alone. She is retired. She is icing for pain , not on any medication for pain. Pt reports that she has not really been lifting anything with her L arm except for carrying her clothes, which causes discomfort. She has a follow up with her surgeon in March. Pt is right handed. Reports difficulty mild difficulty with dressing, brushing dog Treatment Goals Patient/Caregiver Goals ROM, strength Current Functional Impairments (Reported) Functional Limitations- ADL's dressing, grooming Functional Limitations- Work/School retired Functional Limitations- Recreation/ brushing dog, lifting, Hobbies carrying laundry Functional Limitations- Other sleepinx/day (in bed: on L side and stomach), was sleeping in recliner or with body pillow PT-OP-C Subjective Start: 02/14/24 12:51 Freq: Status: Active Protocol: Document 04/06/24 07:33 NM (Rec: 04/06/24 07:34 NM [id number]) OP-PT Subjective Patient Comments Patient Comments Pt reports L shoulder is doing well. She reports no pain but describes achiness in shoulder; she reports that she has achiness all over. Washed her heavy quilts the other day, reports back bothered her but not her shoulder. She states she knows she over did it. Has not had any catching, popping, locking. Has been compliant with lifting precautions other than previously with cans and now wiht quilts. She reports exercises going well at home, no discomfort or pain with exercises. She reports challenging with wall push ups helga as sets increase. PT-OP-F Manual Assessment Start: 02/14/24 12:51 Freq: Status: Active Protocol: Document 02/14/24 14:31 NM (Rec: 02/14/24 15:47 NM [id number]) Manual Assessments Soft Tissue Assessment Soft Tissue Mobility Assessment Increased lat and upper trap/ levator scapula tightness. Tenderness with small bulge over distal/middle muscle belly of biceps, reduced with gentle mobilization Joint Mobility Assessment Joint Mobility Assessment Decreased inferior glide L shoulder. Increased anterior humeral positioning in both resting posture and during AROM Other Manual Assessments Other Manual Assessments Distal biceps tendon intact via hook test, no edita sign present for proximal biceps PT-OP-H Neuro Start: 02/14/24 12:51 Freq: Status: Active Protocol: Document 02/14/24 14:31 NM (Rec: 02/14/24 15:47 NM [id number]) Sensation Evaluation Comments Summary Comments BUE equally intact to light touch sensation PT-OP-J Posture/Palpation/Skin Start: 02/14/24 12:51 Freq: Status: Active Protocol: Document 02/14/24 14:31 NM (Rec: 02/14/24 15:47 NM [id number]) Posture Evaluation Position Standing Head/C-Spine Posture Forward Head Shoulder Posture (L) Rounded,(R) Rounded,(L) Forward,(R) Forward Scapula Posture (R) Neutral,(L) Retracted,(R) Elevated Arm Posture (L) Internally Rotated,(R) Internally Rotated Pelvis Posture Anteriorly Tilted Knee Posture (L) Genu Valgus,(R) Genu Valgus Palpation Assessment Location L shoulder Palpation Details Tenderness along biceps muscle belly No tenderness along rotator cuff muscles, incisions, rhomboids, periscapulars Increased tightness of upper trap, levator scapula Skin Assessment Incisional Assessment Incision Appearance/Comments Scars intact, healing without signs of infection. Multiple scars present along anterior, lateral, and posterior shoulder. Mild adhesions of anterior shoulder scars. One slight open scab/wound (not scar) on posterior shoulder. Keloid scarring visible from previous surgeries PT-OP-K Range of Motion Start: 02/14/24 12:51 Freq: Status: Active Protocol: Document 04/06/24 07:33 NM (Rec: 04/06/24 07:34 NM [id number]) Shoulder Goniometric Range of Motion Shoulder Right Flexion 150 Extension 60 Abduction 170 External Rotation at 90 degrees 80 Abduction External Rotation at 0 degrees Abduction 80 Internal Rotation Behind Back (text) T7 Comments ER C7 Left AROM Flexion 165 Abduction 170 External Rotation at 0 degrees Abduction 65 Internal Rotation Behind Back (text) T10 Comments discomfort with abduction; tight with ER ER to occiput 03/13/24: 164 deg flex, 170 deg abd, C7 ER, T12 IR apley 04/06/24: T10 IR, T2 ER apley, 65 deg ER at 0 deg abd Left PROM Flexion 150 Abduction 110 External Rotation at 0 degrees Abduction 75 PT-OP-M Strength Start: 02/14/24 12:51 Freq: Status: Active Protocol: Document 04/06/24 07:33 NM (Rec: 04/06/24 07:34 NM [id number]) Shoulder Strength Shoulder Manual Muscle Testing Right Flexion 4 Good Abduction (C5) 4 Good External Rotation 4 Good Internal Rotation 4 Good Left Flexion 4- Good- Abduction (C5) 4- Good- External Rotation 4- Good- Internal Rotation 4- Good- Comments IE: 3/5; Did not formally assess strength due to precautions; pt able to lift arm against gravity through ROM 03/13/24: 3+ for all; pain free 04/06/24: 4-/5 for all; pain free PT-OP-Q Treatments Start: 02/14/24 12:51 Freq: Status: Active Protocol: Document 04/06/24 07:33 NM (Rec: 04/06/24 07:34 NM [id number]) Therapeutic Exercises Standing Exercises wall plank Standing Exercise Name long lever shoulder taps Side bilateral Reps/Minutes 10 ea Comments challenging, feels but denies pain; trial on forearm next time Cheer leaders Standing Exercise Name horizontal abd then at angles Side bilateral Resistance level one band Reps/Minutes 2x5 ea- emphasis on hand position Comments Verbal and visual cues helga for scapula, no trunk lean; pain free shoulder ER and IR Standing Exercise Name HEP review- Isotonic: 1. IR, 2 . ER Side left Resistance Level one band Reps/Minutes 3x15 Comments monitored for pain, verbal cues to relax shoulder, minimize wrist mvmt scapular wall slide Standing Exercise Name 1. wall lift off and lower, 2. w/ level 1 band Reps/Minutes 1. 10, 2. 10 w/ band Bilateral serratus slides Comments with lift off and lower without use of wall; cued for form; pain free Manual Therapy Treatment Consent Patient gave verbal consent for manual Yes treatment Soft Tissue Mobilization L shoulder Body Location post cuff, lat, pec, UT, LS Mobilization Type Cross-Friction,Rolling, Strumming,Sustained Pressure Intensity/Depth Superficial Body Position Hooklying Comments Tolerates well, monitored for pain. Joint Mobilizations L scapular Direction adduction/retraction, elevation/depression Grade III Body Position Sidelying Reps/Duration 20 ea L GHJ Direction post, inf Grade III Body Position Hooklying Reps/Duration 4x10 ea PT-OP-T Assessment and Plan Start: 02/14/24 12:51 Freq: Status: Active Protocol: Document 04/06/24 07:33 NM (Rec: 04/06/24 07:34 NM [id number]) Physical Therapy Assessment Goals Four Impairment ADL ability impaired; quickdash score 18.2% impairment School Year Nanny Goal (LTG) Pt will report <10% impairment on quickdash in order to demonstrate minimal limitations with household ADLs due to L shoulder 03/13/24: 18.2% impairment 04/16/24: 15.9% impairment LTG Duration 12 weeks Three Impairment sleeping impaired; waking 2x/ night Short Term Goal (STG) Pt will report that she is waking fewer than 1x/night due to L shoulder pain to demonstrate improved symptom management 03/09/24: pt has not woke up due to shoulder pain for last 3-4 days, not taking medication to manage pain 03/13/24: reports not waking up at night due to L shoulder STG Duration 6 weeks MET Assisted Goal (LTG) Pt will report that she is waking fewer than 3 nights/wk due to L shoulder pain to demonstrate improved symptom management 03/13/24: reports not waking up at night due to L shoulder 03/23/2024 Patient reports having no pain with walking, and is walking daily. 03/26/24: no pain in shoulder with sleeping LTG Duration 12 weeks MET Two Impairment L shoulder strength impaired: currently 3/5 all directions Short Term Goal (STG) Pt will improve L shoulder global strength to at least 4- /5 MMT globally in order to demonstrate improved strength for lifting and carrying ADLs 03/13/24: 3+/5 for all STG Duration 8 weeks PROGRESSING 03/13/24 School Year Nanny Goal (LTG) Pt will improve L shoulder global strength to at least 4+ /5 MMT globally in order to demonstrate improved strength for lifting and carrying ADLs 04/06/24: 4-/5 MMT LTG Duration 12 weeks One Impairment L shoulder AROM impaired: 140 deg flex and abd School Year Nanny Goal (LTG) Pt will improve L shoulder flexion and abduction AROM to at least 150 deg or better in order to be comparable to LUE and to promote improved ROM for reaching, lifting, dressing/grooming ADLs 03/13/24: 164 deg flex, 170 deg abd, C7 ER, T12 IR apley LTG Duration 12 weeks MET Progress Towards Goals Progress Towards Goals Progressing Toward Goals,Goals Met Assessment Summary Assessment Pt tolerated session well. No L shoulder pain during exercises. Continued with PNF cheerleaders and serratus activation. Progressed number of reps for PNF with moderate cueing for hand position to optimize rotator cuff activation in GHJ. Added band to serratus wall slides. Pt has 165 deg L shoulder flex and 170 deg L shoulder abd. Increased number of reps with isotonic ER and IR; if pt continues to tolerate increased reps well, will progress band level. Physical Therapy Plan Frequency and Duration Frequency of Treatment 2x/Week Duration of treatment (weeks) 12 Plan of Care Start Date 02/14/24 Plan of Care End Date 05/11/24 Therapeutic Interventions Therapeutic Interventions Balance Training,Gait Training ,Home Exercise Program,Joint Mobilizations,Manual Therapy, Neuromuscular Re-education, Orthotic/Prosthetic Management ,Patient/Caregiver Education, Self-Care/Home Management, Sensory Integration,Soft Tissue Mobilization,Taping, Therapeutic Activities, Therapeutic Exercises Modalities Cold Pack/Ice Massage,Hot Packs Next Visit Focus/Plan Next Note Type Treatment Note Next Visit Plan update HEP as needed. Assess casie to 3x15 ER/IR; progress band if casie well. Assess casie to shoulder taps in plank on wall- trial short lever next if sore. Cont with core and serratus wall slides with band . cont banded PNF banded. Cont w/ rhythmic stab -trial body blade in low abd. Cont lawnmower row, Y lift off, periscap and RTC strength Progress per protocol as appropriate Manual: gentle shoulder mobilizations helga inf glide, soft tissue mobilization per surgeon note on 02/08/24, pt able to slowly progress into WBAT
--- NOTE | 2024-04-10 10:36 | PT.OTN ---
Current Diagnoses Pain in left shoulder (04/10/24) Stiffness of left shoulder, not elsewhere classified (04/10/24) Weakness (04/10/24) Strain of muscle(s) and tendon(s) of the rotator cuff of left shoulder, subsequent encounter (04/10/24) Physical Therapy Treatment Note PT-OP-A Visit Information Start: 02/14/24 12:51 Freq: Status: Active Protocol: Document 04/10/24 08:57 AB (Rec: 04/10/24 10:36 AB [id number]) Out-Patient Physical Therapy Visit Information Visit Information Visit Type Treatment Note Visit Start Time 09:48 Visit Stop Time 10:32 Visit Number 15 Number of ASSOCIATE DIRECTOR FINANCE Visits 1 Evaluation Information Evaluation Date 02/14/24 Precautions Precautions s/p L shoulder arthroscopy with rotator cuff and proximal biceps tendon repair, DOS 12/28 6 weeks: 02/09/24, 8 weeks 02/22, 12 weeks 03/22/24 PMH brain tumor, joint replacement, back and neck pain, headaches, TBI/concusion PT-OP-B Current Condition Start: 02/14/24 12:51 Freq: Status: Active Protocol: Document 02/14/24 14:31 NM (Rec: 02/14/24 15:47 NM [id number]) Current Condition History of Current Condition Onset Date DOS 12/29/23 Current Complaints pain, limited strength and ROM , decreased ADLs History of Current Condition Pt has L shoulder arthroscopy and rotator cuff revision on . She states that they reinforced the rotator cuff and she had a tear in the ligaments away from the muscle in the biceps. Pt had a rotator repair in 2021, reports no complications during that time. She reports that retore her muscles after lifting a patio heater when lifting back in September/October 2023; states that she felt a a burning sensation. She went to see Dr. Melo Azevedo last week for follow up, reports that Dr in pleased except for not wearing sling; reports that pt stopped wearing her sling 3 weeks ago. Reports tenderness along anterior shoulder near biceps. Reports no falls. 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 Pt reports that she has been going off of sheet protocol; reports no pain or discomfort. Pt reports that she has been actively using her arm since d/c sling. She lives alone. She is retired. She is icing for pain , not on any medication for pain. Pt reports that she has not really been lifting anything with her L arm except for carrying her clothes, which causes discomfort. She has a follow up with her surgeon in March. Pt is right handed. Reports difficulty mild difficulty with dressing, brushing dog Treatment Goals Patient/Caregiver Goals ROM, strength Current Functional Impairments (Reported) Functional Limitations- ADL's dressing, grooming Functional Limitations- Work/School retired Functional Limitations- Recreation/ brushing dog, lifting, Hobbies carrying laundry Functional Limitations- Other sleepinx/day (in bed: on L side and stomach), was sleeping in recliner or with body pillow PT-OP-C Subjective Start: 02/14/24 12:51 Freq: Status: Active Protocol: Document 04/10/24 08:57 AB (Rec: 04/10/24 10:36 AB [id number]) OP-PT Subjective Patient Comments Patient Comments 160 deg AROM left shoulder flexion start of session, comments shoulder has been achy, attributes to cold weather. Patient reports increased reps of ER and IR and shoulder taps were fine after previous session. PT-OP-F Manual Assessment Start: 02/14/24 12:51 Freq: Status: Active Protocol: Document 02/14/24 14:31 NM (Rec: 02/14/24 15:47 NM [id number]) Manual Assessments Soft Tissue Assessment Soft Tissue Mobility Assessment Increased lat and upper trap/ levator scapula tightness. Tenderness with small bulge over distal/middle muscle belly of biceps, reduced with gentle mobilization Joint Mobility Assessment Joint Mobility Assessment Decreased inferior glide L shoulder. Increased anterior humeral positioning in both resting posture and during AROM Other Manual Assessments Other Manual Assessments Distal biceps tendon intact via hook test, no edita sign present for proximal biceps PT-OP-H Neuro Start: 02/14/24 12:51 Freq: Status: Active Protocol: Document 02/14/24 14:31 NM (Rec: 02/14/24 15:47 NM [id number]) Sensation Evaluation Comments Summary Comments BUE equally intact to light touch sensation PT-OP-J Posture/Palpation/Skin Start: 02/14/24 12:51 Freq: Status: Active Protocol: Document 02/14/24 14:31 NM (Rec: 02/14/24 15:47 NM [id number]) Posture Evaluation Position Standing Head/C-Spine Posture Forward Head Shoulder Posture (L) Rounded,(R) Rounded,(L) Forward,(R) Forward Scapula Posture (R) Neutral,(L) Retracted,(R) Elevated Arm Posture (L) Internally Rotated,(R) Internally Rotated Pelvis Posture Anteriorly Tilted Knee Posture (L) Genu Valgus,(R) Genu Valgus Palpation Assessment Location L shoulder Palpation Details Tenderness along biceps muscle belly No tenderness along rotator cuff muscles, incisions, rhomboids, periscapulars Increased tightness of upper trap, levator scapula Skin Assessment Incisional Assessment Incision Appearance/Comments Scars intact, healing without signs of infection. Multiple scars present along anterior, lateral, and posterior shoulder. Mild adhesions of anterior shoulder scars. One slight open scab/wound (not scar) on posterior shoulder. Keloid scarring visible from previous surgeries PT-OP-K Range of Motion Start: 02/14/24 12:51 Freq: Status: Active Protocol: Document 04/06/24 07:33 NM (Rec: 04/06/24 07:34 NM [id number]) Shoulder Goniometric Range of Motion Shoulder Right Flexion 150 Extension 60 Abduction 170 External Rotation at 90 degrees 80 Abduction External Rotation at 0 degrees Abduction 80 Internal Rotation Behind Back (text) T7 Comments ER C7 Left AROM Flexion 165 Abduction 170 External Rotation at 0 degrees Abduction 65 Internal Rotation Behind Back (text) T10 Comments discomfort with abduction; tight with ER ER to occiput 03/13/24: 164 deg flex, 170 deg abd, C7 ER, T12 IR apley 04/06/24: T10 IR, T2 ER apley, 65 deg ER at 0 deg abd Left PROM Flexion 150 Abduction 110 External Rotation at 0 degrees Abduction 75 PT-OP-M Strength Start: 02/14/24 12:51 Freq: Status: Active Protocol: Document 04/06/24 07:33 NM (Rec: 04/06/24 07:34 NM [id number]) Shoulder Strength Shoulder Manual Muscle Testing Right Flexion 4 Good Abduction (C5) 4 Good External Rotation 4 Good Internal Rotation 4 Good Left Flexion 4- Good- Abduction (C5) 4- Good- External Rotation 4- Good- Internal Rotation 4- Good- Comments IE: 3/5; Did not formally assess strength due to precautions; pt able to lift arm against gravity through ROM 03/13/24: 3+ for all; pain free 04/06/24: 4-/5 for all; pain free PT-OP-Q Treatments Start: 02/14/24 12:51 Freq: Status: Active Protocol: Document 04/10/24 08:57 AB (Rec: 04/10/24 10:36 AB [id number]) Therapeutic Exercises Supine Exercises serratus press Supine Exercise Name HEP review Side bilateral Resistance 1. AROM 2. 1# Reps/Minutes X15 without weight X 15 with 1# Standing Exercises Cheer leaders Standing Exercise Name horizontal abd then at angles Side bilateral Resistance level one band Equipment Used HEP Comments monitored for pain rhythmic stabilization with therabar Standing Exercise Name 1. statue of liberty, Side left Resistance yellow therabar Reps/Minutes 60 sec ea shoulder ER and IR Standing Exercise Name HEP review- Isotonic: 1. IR, 2 . ER Side left Resistance level 2 band Comments Monitored for pain wall push up plus Standing Exercise Name push up plus (HEP review) Side bilateral Reps/Minutes X15 Comments VC for avoiding shoulder shrug Manual Therapy Treatment Soft Tissue Mobilization L shoulder Body Location post cuff, lat, pec, UT, LS Mobilization Type Cross-Friction,Rolling, Strumming,Sustained Pressure Intensity/Depth Superficial Body Position Hooklying Comments Tolerates well, monitored for pain. Joint Mobilizations L scapular Direction adduction/retraction, elevation/depression Grade III Body Position Sidelying Reps/Duration 10 ea L GHJ Direction post, inf Grade III Body Position Hooklying Reps/Duration 3x10 ea Manual Techniques Contract relax Type into ER and IR Body Location left shoulder Body Position Hooklying Reps/Duration X1 each Comments very gentle PT-OP-T Assessment and Plan Start: 02/14/24 12:51 Freq: Status: Active Protocol: Document 04/10/24 08:57 AB (Rec: 04/10/24 10:36 AB [id number]) Physical Therapy Assessment Goals Four Impairment ADL ability impaired; quickdash score 18.2% impairment Brain Surgeon Goal (LTG) Pt will report <10% impairment on quickdash in order to demonstrate minimal limitations with household ADLs due to L shoulder 03/13/24: 18.2% impairment 04/16/24: 15.9% impairment LTG Duration 12 weeks Three Impairment sleeping impaired; waking 2x/ night Short Term Goal (STG) Pt will report that she is waking fewer than 1x/night due to L shoulder pain to demonstrate improved symptom management 03/09/24: pt has not woke up due to shoulder pain for last 3-4 days, not taking medication to manage pain 03/13/24: reports not waking up at night due to L shoulder STG Duration 6 weeks MET Senior Living Goal (LTG) Pt will report that she is waking fewer than 3 nights/wk due to L shoulder pain to demonstrate improved symptom management 03/13/24: reports not waking up at night due to L shoulder 03/23/2024 Patient reports having no pain with walking, and is walking daily. 03/26/24: no pain in shoulder with sleeping LTG Duration 12 weeks MET Two Impairment L shoulder strength impaired: currently 3/5 all directions Short Term Goal (STG) Pt will improve L shoulder global strength to at least 4- /5 MMT globally in order to demonstrate improved strength for lifting and carrying ADLs 03/13/24: 3+/5 for all STG Duration 8 weeks PROGRESSING 03/13/24 Brain Surgeon Goal (LTG) Pt will improve L shoulder global strength to at least 4+ /5 MMT globally in order to demonstrate improved strength for lifting and carrying ADLs 04/06/24: 4-/5 MMT LTG Duration 12 weeks One Impairment L shoulder AROM impaired: 140 deg flex and abd Senior Living Goal (LTG) Pt will improve L shoulder flexion and abduction AROM to at least 150 deg or better in order to be comparable to LUE and to promote improved ROM for reaching, lifting, dressing/grooming ADLs 03/13/24: 164 deg flex, 170 deg abd, C7 ER, T12 IR apley LTG Duration 12 weeks MET Assessment Summary Assessment Patient with good casie to increased to level 2 band for left shoulder IR and ER. AROM left shoulder flexion 165 deg end of session rating pain 0/ 10. Physical Therapy Plan Frequency and Duration Frequency of Treatment 2x/Week Duration of treatment (weeks) 12 Plan of Care Start Date 02/14/24 Plan of Care End Date 05/11/24 Next Visit Focus/Plan Next Note Type Treatment Note Next Visit Plan update HEP as needed. Cont with core and serratus wall slides with band. cont banded PNF banded. Cont w/ rhythmic stab -trial body blade in low abd. Cont lawnmower row, Y lift off, periscap and RTC strength Progress per protocol as appropriate Manual: gentle shoulder mobilizations helga inf glide, soft tissue mobilization per surgeon note on 02/08/24, pt able to slowly progress into WBAT
--- NOTE | 2024-04-12 10:35 | PT.OTN ---
Current Diagnoses Pain in left shoulder (04/12/24) Stiffness of left shoulder, not elsewhere classified (04/12/24) Weakness (04/12/24) Strain of muscle(s) and tendon(s) of the rotator cuff of left shoulder, subsequent encounter (04/12/24) Physical Therapy Treatment Note PT-OP-A Visit Information Start: 02/14/24 12:51 Freq: Status: Active Protocol: Document 04/12/24 08:10 AB (Rec: 04/12/24 10:35 AB [id number]) Out-Patient Physical Therapy Visit Information Visit Information Visit Type Treatment Note Visit Start Time 09:48 Visit Stop Time 10:30 Visit Number 16 Number of INTERMEDIATE DESIGNER Visits 2 Evaluation Information Evaluation Date 02/14/24 Precautions Precautions s/p L shoulder arthroscopy with rotator cuff and proximal biceps tendon repair, DOS 12/28 6 weeks: 02/09/24, 8 weeks 02/22, 12 weeks 03/22/24 PMH brain tumor, joint replacement, back and neck pain, headaches, TBI/concusion PT-OP-B Current Condition Start: 02/14/24 12:51 Freq: Status: Active Protocol: Document 02/14/24 14:31 NM (Rec: 02/14/24 15:47 NM [id number]) Current Condition History of Current Condition Onset Date DOS 12/29/23 Current Complaints pain, limited strength and ROM , decreased ADLs History of Current Condition Pt has L shoulder arthroscopy and rotator cuff revision on . She states that they reinforced the rotator cuff and she had a tear in the ligaments away from the muscle in the biceps. Pt had a rotator repair in 2021, reports no complications during that time. She reports that retore her muscles after lifting a patio heater when lifting back in September/October 2023; states that she felt a a burning sensation. She went to see Dr. Melo Azevedo last week for follow up, reports that Dr in pleased except for not wearing sling; reports that pt stopped wearing her sling 3 weeks ago. Reports tenderness along anterior shoulder near biceps. Reports no falls. Prior to stopping wearing sling, she was wearing time clock inspector (d/c from pillow sling at 2 weeks); no signs of infections. Pt reports that she has been going off of sheet protocol; reports no pain or discomfort. Pt reports that she has been actively using her arm since d/c sling. She lives alone. She is retired. She is icing for pain , not on any medication for pain. Pt reports that she has not really been lifting anything with her L arm except for carrying her clothes, which causes discomfort. She has a follow up with her surgeon in March. Pt is right handed. Reports difficulty mild difficulty with dressing, brushing dog Treatment Goals Patient/Caregiver Goals ROM, strength Current Functional Impairments (Reported) Functional Limitations- ADL's dressing, grooming Functional Limitations- Work/School retired Functional Limitations- Recreation/ brushing dog, lifting, Hobbies carrying laundry Functional Limitations- Other sleepinx/day (in bed: on L side and stomach), was sleeping in recliner or with body pillow PT-OP-C Subjective Start: 02/14/24 12:51 Freq: Status: Active Protocol: Document 04/12/24 08:10 AB (Rec: 04/12/24 10:35 AB [id number]) OP-PT Subjective Patient Comments Patient Comments Patient reports she woke up sore, attributes to sleeping on the shoulder wrong complains of feeling achy rating pain 5/10 Left shoulder . AROM left shoulder flexion 160 deg start of session. PT-OP-F Manual Assessment Start: 02/14/24 12:51 Freq: Status: Active Protocol: Document 02/14/24 14:31 NM (Rec: 02/14/24 15:47 NM [id number]) Manual Assessments Soft Tissue Assessment Soft Tissue Mobility Assessment Increased lat and upper trap/ levator scapula tightness. Tenderness with small bulge over distal/middle muscle belly of biceps, reduced with gentle mobilization Joint Mobility Assessment Joint Mobility Assessment Decreased inferior glide L shoulder. Increased anterior humeral positioning in both resting posture and during AROM Other Manual Assessments Other Manual Assessments Distal biceps tendon intact via hook test, no edita sign present for proximal biceps PT-OP-H Neuro Start: 02/14/24 12:51 Freq: Status: Active Protocol: Document 02/14/24 14:31 NM (Rec: 02/14/24 15:47 NM [id number]) Sensation Evaluation Comments Summary Comments BUE equally intact to light touch sensation PT-OP-J Posture/Palpation/Skin Start: 02/14/24 12:51 Freq: Status: Active Protocol: Document 02/14/24 14:31 NM (Rec: 02/14/24 15:47 NM [id number]) Posture Evaluation Position Standing Head/C-Spine Posture Forward Head Shoulder Posture (L) Rounded,(R) Rounded,(L) Forward,(R) Forward Scapula Posture (R) Neutral,(L) Retracted,(R) Elevated Arm Posture (L) Internally Rotated,(R) Internally Rotated Pelvis Posture Anteriorly Tilted Knee Posture (L) Genu Valgus,(R) Genu Valgus Palpation Assessment Location L shoulder Palpation Details Tenderness along biceps muscle belly No tenderness along rotator cuff muscles, incisions, rhomboids, periscapulars Increased tightness of upper trap, levator scapula Skin Assessment Incisional Assessment Incision Appearance/Comments Scars intact, healing without signs of infection. Multiple scars present along anterior, lateral, and posterior shoulder. Mild adhesions of anterior shoulder scars. One slight open scab/wound (not scar) on posterior shoulder. Keloid scarring visible from previous surgeries PT-OP-K Range of Motion Start: 02/14/24 12:51 Freq: Status: Active Protocol: Document 04/06/24 07:33 NM (Rec: 04/06/24 07:34 NM [id number]) Shoulder Goniometric Range of Motion Shoulder Right Flexion 150 Extension 60 Abduction 170 External Rotation at 90 degrees 80 Abduction External Rotation at 0 degrees Abduction 80 Internal Rotation Behind Back (text) T7 Comments ER C7 Left AROM Flexion 165 Abduction 170 External Rotation at 0 degrees Abduction 65 Internal Rotation Behind Back (text) T10 Comments discomfort with abduction; tight with ER ER to occiput 03/13/24: 164 deg flex, 170 deg abd, C7 ER, T12 IR apley 04/06/24: T10 IR, T2 ER apley, 65 deg ER at 0 deg abd Left PROM Flexion 150 Abduction 110 External Rotation at 0 degrees Abduction 75 PT-OP-M Strength Start: 02/14/24 12:51 Freq: Status: Active Protocol: Document 04/06/24 07:33 NM (Rec: 04/06/24 07:34 NM [id number]) Shoulder Strength Shoulder Manual Muscle Testing Right Flexion 4 Good Abduction (C5) 4 Good External Rotation 4 Good Internal Rotation 4 Good Left Flexion 4- Good- Abduction (C5) 4- Good- External Rotation 4- Good- Internal Rotation 4- Good- Comments IE: 3/5; Did not formally assess strength due to precautions; pt able to lift arm against gravity through ROM 03/13/24: 3+ for all; pain free 04/06/24: 4-/5 for all; pain free PT-OP-Q Treatments Start: 02/14/24 12:51 Freq: Status: Active Protocol: Document 04/12/24 08:10 AB (Rec: 04/12/24 10:35 AB [id number]) Therapeutic Exercises Supine Exercises rhythmic stabilization Supine Exercise Name light resistance Side bilateral Equipment Used holding small blue haitian ball Reps/Minutes 30 sec Comments reports no hitch supine shoulder flexion Side bilateral Resistance level one light blue band Reps/Minutes X5 without band X 5 with band Sidelying Exercises IR AROM Side left Resistance AROM Reps/Minutes X15 ER Side left Resistance AROM Equipment Used towel roll btwn body Reps/Minutes X15 Sitting Exercises belly press Sitting Exercise Name subscapular strengthening Side left Reps/Minutes 10x short sit Sitting Exercise Name resting on forearm to left then to upright then to right HEP Side bilateral Reps/Minutes X10 Comments verbal cues, monitored for pain Standing Exercises body blade Standing Exercise Name ~20 deg abd, fwd back Side left Reps/Minutes 30 seconds Comments Verbal and visual cues rhythmic stabilization with therabar Standing Exercise Name 1. statue of liberty, Side left Resistance yellow therabar Reps/Minutes 60 sec ea scapular wall slide Standing Exercise Name 1. wall lift off and lower, 2. w/ level 1 band Reps/Minutes 1. X5 X 2 2. X5 X 2w/ band Bilateral serratus slides Comments VC for one foot fwd to dec force on lumbar spine Manual Therapy Treatment Consent Patient gave verbal consent for manual Yes treatment Soft Tissue Mobilization L shoulder Body Location post cuff, lat, pec, UT, LS Mobilization Type Cross-Friction,Rolling, Strumming,Sustained Pressure Intensity/Depth Superficial Body Position Hooklying Comments Tolerates well, monitored for pain. Joint Mobilizations L scapular Direction adduction/retraction, elevation/depression Grade III Body Position Sidelying Reps/Duration 10 ea L GHJ Direction post, inf Grade III Body Position Hooklying Reps/Duration 3x10 ea Manual Techniques Contract relax Type into ER and IR Body Location left shoulder Body Position Hooklying Reps/Duration X1 each Comments very gentle PT-OP-T Assessment and Plan Start: 02/14/24 12:51 Freq: Status: Active Protocol: Document 04/12/24 08:10 AB (Rec: 04/12/24 10:35 AB [id number]) Physical Therapy Assessment Goals Four Impairment ADL ability impaired; quickdash score 18.2% impairment Backend Python Developer Goal (LTG) Pt will report <10% impairment on quickdash in order to demonstrate minimal limitations with household ADLs due to L shoulder 03/13/24: 18.2% impairment 04/16/24: 15.9% impairment LTG Duration 12 weeks Three Impairment sleeping impaired; waking 2x/ night Short Term Goal (STG) Pt will report that she is waking fewer than 1x/night due to L shoulder pain to demonstrate improved symptom management 03/09/24: pt has not woke up due to shoulder pain for last 3-4 days, not taking medication to manage pain 03/13/24: reports not waking up at night due to L shoulder STG Duration 6 weeks MET Backend Python Developer Goal (LTG) Pt will report that she is waking fewer than 3 nights/wk due to L shoulder pain to demonstrate improved symptom management 03/13/24: reports not waking up at night due to L shoulder 03/23/2024 Patient reports having no pain with walking, and is walking daily. 03/26/24: no pain in shoulder with sleeping LTG Duration 12 weeks MET Two Impairment L shoulder strength impaired: currently 3/5 all directions Short Term Goal (STG) Pt will improve L shoulder global strength to at least 4- /5 MMT globally in order to demonstrate improved strength for lifting and carrying ADLs 03/13/24: 3+/5 for all STG Duration 8 weeks PROGRESSING 03/13/24 Backend Python Developer Goal (LTG) Pt will improve L shoulder global strength to at least 4+ /5 MMT globally in order to demonstrate improved strength for lifting and carrying ADLs 04/06/24: 4-/5 MMT LTG Duration 12 weeks One Impairment L shoulder AROM impaired: 140 deg flex and abd Backend Python Developer Goal (LTG) Pt will improve L shoulder flexion and abduction AROM to at least 150 deg or better in order to be comparable to LUE and to promote improved ROM for reaching, lifting, dressing/grooming ADLs 03/13/24: 164 deg flex, 170 deg abd, C7 ER, T12 IR apley LTG Duration 12 weeks MET Assessment Summary Assessment AROM left shoulder flexion 164 deg end of session rating pain 0/10 ambulating out of session. Good tolerance to rhythmic stablizations exercises, with ball, therabar and body blade. Physical Therapy Plan Frequency and Duration Frequency of Treatment 2x/Week Duration of treatment (weeks) 12 Plan of Care Start Date 02/14/24 Plan of Care End Date 05/11/24 Next Visit Focus/Plan Next Note Type Treatment Note Next Visit Plan update HEP as needed. Cont with core and serratus wall slides with band. cont banded PNF banded. Cont w/ rhythmic stab -trial body blade in low abd. Cont lawnmower row, Y lift off, periscap and RTC strength Progress per protocol as appropriate Manual: gentle shoulder mobilizations helga inf glide, soft tissue mobilization per surgeon note on 02/08/24, pt able to slowly progress into WBAT
--- NOTE | 2024-04-26 11:06 | PT-OP ANOTE ---
PT called clinic and spoke to retail wireless sales representative Jing to confirm that pt does not need to continue with PT and has cancelled all appts. Graphics Editor to confirm with MD and will contact PT again
--- NOTE | 2024-05-09 10:30 | PT.OPDS ---
Current Diagnoses Pain in left shoulder (04/12/24) Stiffness of left shoulder, not elsewhere classified (04/12/24) Weakness (04/12/24) Strain of muscle(s) and tendon(s) of the rotator cuff of left shoulder, subsequent encounter (04/12/24) Visit Care Team Role Provider Type Trudi Jones DO Primary Care Provider Non-Staff Specialty: Family Practice Address: [address] [place] [address], [address], [address] Email: Melo Azevedo MD Attending Provider Non-Staff Family Provider Referring Provider Specialty: Orthopedic Surgery Address: [address] [place] [address], [facility] [address], [place], [address] Email: Visit Number Visit Number 16 Discharge Summary PT-OP-B Current Condition Start: 02/14/24 12:51 Freq: Status: Active Protocol: Document 02/14/24 14:31 NM (Rec: 02/14/24 15:47 NM [id number]) Current Condition History of Current Condition Onset Date DOS 12/29/23 Current Complaints pain, limited strength and ROM , decreased ADLs History of Current Condition Pt has L shoulder arthroscopy and rotator cuff revision on . She states that they reinforced the rotator cuff and she had a tear in the ligaments away from the muscle in the biceps. Pt had a rotator repair in 2021, reports no complications during that time. She reports that retore her muscles after lifting a patio heater when lifting back in September/October 2023; states that she felt a a burning sensation. She went to see Dr. Melo Azevedo last week for follow up, reports that Dr in pleased except for not wearing sling; reports that pt stopped wearing her sling 3 weeks ago. Reports tenderness along anterior shoulder near biceps. Reports no falls. Prior to stopping wearing sling, she was wearing patient office rep (d/c from pillow sling at 2 weeks); no signs of infections. Pt reports that she has been going off of sheet protocol; reports no pain or discomfort. Pt reports that she has been actively using her arm since d/c sling. She lives alone. She is retired. She is icing for pain , not on any medication for pain. Pt reports that she has not really been lifting anything with her L arm except for carrying her clothes, which causes discomfort. She has a follow up with her surgeon in March. Pt is right handed. Reports difficulty mild difficulty with dressing, brushing dog Treatment Goals Patient/Caregiver Goals ROM, strength Current Functional Impairments (Reported) Functional Limitations- ADL's dressing, grooming Functional Limitations- Work/School retired Functional Limitations- Recreation/ brushing dog, lifting, Hobbies carrying laundry Functional Limitations- Other sleepinx/day (in bed: on L side and stomach), was sleeping in recliner or with body pillow PT-OP-C Subjective Start: 02/14/24 12:51 Freq: Status: Active Protocol: Document 04/12/24 08:10 AB (Rec: 04/12/24 10:35 AB [id number]) OP-PT Subjective Patient Comments Patient Comments Patient reports she woke up sore, attributes to sleeping on the shoulder wrong complains of feeling achy rating pain 5/10 Left shoulder . AROM left shoulder flexion 160 deg start of session. PT-OP-F Manual Assessment Start: 02/14/24 12:51 Freq: Status: Active Protocol: Document 02/14/24 14:31 NM (Rec: 02/14/24 15:47 NM [id number]) Manual Assessments Soft Tissue Assessment Soft Tissue Mobility Assessment Increased lat and upper trap/ levator scapula tightness. Tenderness with small bulge over distal/middle muscle belly of biceps, reduced with gentle mobilization Joint Mobility Assessment Joint Mobility Assessment Decreased inferior glide L shoulder. Increased anterior humeral positioning in both resting posture and during AROM Other Manual Assessments Other Manual Assessments Distal biceps tendon intact via hook test, no edita sign present for proximal biceps PT-OP-H Neuro Start: 02/14/24 12:51 Freq: Status: Active Protocol: Document 02/14/24 14:31 NM (Rec: 02/14/24 15:47 NM [id number]) Sensation Evaluation Comments Summary Comments BUE equally intact to light touch sensation PT-OP-J Posture/Palpation/Skin Start: 02/14/24 12:51 Freq: Status: Active Protocol: Document 02/14/24 14:31 NM (Rec: 02/14/24 15:47 NM [id number]) Posture Evaluation Position Standing Head/C-Spine Posture Forward Head Shoulder Posture (L) Rounded,(R) Rounded,(L) Forward,(R) Forward Scapula Posture (R) Neutral,(L) Retracted,(R) Elevated Arm Posture (L) Internally Rotated,(R) Internally Rotated Pelvis Posture Anteriorly Tilted Knee Posture (L) Genu Valgus,(R) Genu Valgus Palpation Assessment Location L shoulder Palpation Details Tenderness along biceps muscle belly No tenderness along rotator cuff muscles, incisions, rhomboids, periscapulars Increased tightness of upper trap, levator scapula Skin Assessment Incisional Assessment Incision Appearance/Comments Scars intact, healing without signs of infection. Multiple scars present along anterior, lateral, and posterior shoulder. Mild adhesions of anterior shoulder scars. One slight open scab/wound (not scar) on posterior shoulder. Keloid scarring visible from previous surgeries PT-OP-K Range of Motion Start: 02/14/24 12:51 Freq: Status: Active Protocol: Document 04/06/24 07:33 NM (Rec: 04/06/24 07:34 NM [id number]) Shoulder Goniometric Range of Motion Shoulder Right Flexion 150 Extension 60 Abduction 170 External Rotation at 90 degrees 80 Abduction External Rotation at 0 degrees Abduction 80 Internal Rotation Behind Back (text) T7 Comments ER C7 Left AROM Flexion 165 Abduction 170 External Rotation at 0 degrees Abduction 65 Internal Rotation Behind Back (text) T10 Comments discomfort with abduction; tight with ER ER to occiput 03/13/24: 164 deg flex, 170 deg abd, C7 ER, T12 IR apley 04/06/24: T10 IR, T2 ER apley, 65 deg ER at 0 deg abd Left PROM Flexion 150 Abduction 110 External Rotation at 0 degrees Abduction 75 PT-OP-M Strength Start: 02/14/24 12:51 Freq: Status: Active Protocol: Document 04/06/24 07:33 NM (Rec: 04/06/24 07:34 NM [id number]) Shoulder Strength Shoulder Manual Muscle Testing Right Flexion 4 Good Abduction (C5) 4 Good External Rotation 4 Good Internal Rotation 4 Good Left Flexion 4- Good- Abduction (C5) 4- Good- External Rotation 4- Good- Internal Rotation 4- Good- Comments IE: 3/5; Did not formally assess strength due to precautions; pt able to lift arm against gravity through ROM 03/13/24: 3+ for all; pain free 04/06/24: 4-/5 for all; pain free PT-OP-T Assessment and Plan Start: 02/14/24 12:51 Freq: Status: Active Protocol: Document 04/18/24 10:37 NM (Rec: 04/18/24 10:39 NM [id number]) Physical Therapy Assessment Goals Four Impairment ADL ability impaired; quickdash score 18.2% impairment Assisted Goal (LTG) Pt will report <10% impairment on quickdash in order to demonstrate minimal limitations with household ADLs due to L shoulder 03/13/24: 18.2% impairment 04/16/24: 15.9% impairment LTG Duration 12 weeks Three Impairment sleeping impaired; waking 2x/ night Short Term Goal (STG) Pt will report that she is waking fewer than 1x/night due to L shoulder pain to demonstrate improved symptom management 03/09/24: pt has not woke up due to shoulder pain for last 3-4 days, not taking medication to manage pain 03/13/24: reports not waking up at night due to L shoulder STG Duration 6 weeks MET Assisted Goal (LTG) Pt will report that she is waking fewer than 3 nights/wk due to L shoulder pain to demonstrate improved symptom management 03/13/24: reports not waking up at night due to L shoulder 03/23/2024 Patient reports having no pain with walking, and is walking daily. 03/26/24: no pain in shoulder with sleeping LTG Duration 12 weeks MET Two Impairment L shoulder strength impaired: currently 3/5 all directions Short Term Goal (STG) Pt will improve L shoulder global strength to at least 4- /5 MMT globally in order to demonstrate improved strength for lifting and carrying ADLs 03/13/24: 3+/5 for all STG Duration 8 weeks PROGRESSING 03/13/24 Assisted Goal (LTG) Pt will improve L shoulder global strength to at least 4+ /5 MMT globally in order to demonstrate improved strength for lifting and carrying ADLs 04/06/24: 4-/5 MMT LTG Duration 12 weeks One Impairment L shoulder AROM impaired: 140 deg flex and abd Radio/Tv Technician Goal (LTG) Pt will improve L shoulder flexion and abduction AROM to at least 150 deg or better in order to be comparable to LUE and to promote improved ROM for reaching, lifting, dressing/grooming ADLs 03/13/24: 164 deg flex, 170 deg abd, C7 ER, T12 IR apley LTG Duration 12 weeks MET Assessment Summary Assessment Pt has been seen x15 since evaluation in January 2024 s /p L rotator cuff revision. Pt was progressing well toward goals, meeting several. Pt demonstrates improved ROM, WFL for ADLs, in addition to improvements in strengthe following evaluation. Pt was still progressing toward strength goals. She is compliant with HEP; HEP updated at previous session with HEP for progressions. Pt saw referring surgeon on 04/13. Pt called and left message at front desk host cancelling all future appt following her MD visit, stating that MD said she did not need PT anymore. Physical Therapy Plan Frequency and Duration Frequency of Treatment 2x/Week Duration of treatment (weeks) 12 Plan of Care Start Date 02/14/24 Plan of Care End Date 05/11/24 Therapeutic Interventions Therapeutic Interventions Balance Training,Gait Training ,Home Exercise Program,Joint Mobilizations,Manual Therapy, Neuromuscular Re-education, Orthotic/Prosthetic Management ,Patient/Caregiver Education, Self-Care/Home Management, Sensory Integration,Soft Tissue Mobilization,Taping, Therapeutic Activities, Therapeutic Exercises Modalities Cold Pack/Ice Massage,Hot Packs Discharge Physical Therapy Discharge Reasons Patient Request Discharge Comments Pt called clinic on 04/16/24, requesting to cancel remaining appointments following visit with orthopedic surgeon. Pt reports that surgeon says pt does not need PT anymore and is requesting discharge. Pt will be discharged at her request and will need a new referral for PT if symptoms returns or worsens. Next Visit Focus/Plan Next Note Type Discharge Summary Next Visit Plan discharge from PT
== END 2024-05-17 08:58 | disposition home or self-care (01) ==
LOC: PHYS 09:45
PROVIDERS: Family Provider Orthopaedic Surgery; PCP Family Medicine; Referring Provider Orthopaedic Surgery; Visit Provider Orthopaedic Surgery
DX: S46.012D Strain of muscle(s) and tendon(s) of the rotator cuff of left shoulder, subsequent encounter (principal); M25.612 Stiffness of left shoulder, not elsewhere classified; M25.512 Pain in left shoulder; R53.1 Weakness
CPT/HCPCS: 97110; 97140; 97161

== ENCOUNTER 2024-06-17 09:20 | Emergency (ER) | payer MEDICARE, SELFPAY ==
[2024-06-17 09:38] VITALS: BP 171/81; PULSE 73; RESP 16; TEMP 36.4; O2SAT 98; BMI 32.1
--- NOTE | 2024-06-17 09:56 | ED.SKABFB ---
HPI - Skin/Abscess/Foreign Bdy General Chief complaint: Nasal Problem Stated complaint: nasal problems, used flonase t-1, nose inflamed Time Seen by Provider: 06/17/24 09:49 History of Present Illness HPI narrative: 68-year-old female presents for swelling and inflammation of her nose. Patient saw her primary care doctor yesterday for nasal congestion and ringing in her ears. She was referred to ear nose and throat and counseled to use Flonase. Patient states that she was use Flonase many times and used it again last night the way she normally would. When she woke up this morning her nose was painful and swollen. This has never happened before. Related Data Home Medications Medication Instructions Recorded Confirmed hydrocodone 5 mg-acetaminophen 300 ##0 04/19/17 mg tablet (Vicodin) meloxicam 7.5 mg tablet (Mobic) 7.5 mg PO AMCC ##0 04/19/17 topiramate 50 mg tablet (Topamax) 50 mg ##0 04/19/17 Previous Rx's Medication Instructions Recorded oxycodone-acetaminophen 5 mg-325 1 - 2 tab PO Q4HP PRN #10 tabs 04/19/17 mg tablet (Percocet) prednisone 50 mg tablet 50 mg PO AMCC 5 days #0 tabs 04/19/17 cephalexin 250 mg capsule 250 mg PO QID 7 days #28 caps 06/17/24 mupirocin 2 % topical ointment 1 applic topical TID #22 grams 06/17/24 Allergies Allergy/AdvReac Type Severity Reaction Status Date / Time Antihistamines - Alkylamine Allergy Intermediate my body Verified 05/23/23 13:47 [ANTIHISTAMINES - ALKYLAMINE] won't move Patient History Medical History Sciatica Social History Smoking Status: Former smoker Smoking Status: Former smoker alcohol intake frequency: 0-2 drinks per day Exam Initial Vital Signs Initial Vital Signs: Vital Signs Temperature 97.5 F L 06/17/24 09:38 Pulse Rate 73 06/17/24 09:38 Respiratory Rate 16 06/17/24 09:38 Blood Pressure 171/81 H 06/17/24 09:38 Pulse Oximetry 98 06/17/24 09:38 Oxygen Delivery Method Room Air 06/17/24 09:38 Const: Awake, alert, no acute distress, nontoxic appearing Nose: nasal congestion, no sinus tenderness - swelling of skin of nose Skin: erythema of nose with honey crusting over type Neuro: AO x3, CN II-XII grossly intact, moves all extremities Course Vital Signs Vital signs: Vital Signs - 8 hr 06/17/24 09:38 Temperature 97.5 F L Pulse Rate 73 Respiratory Rate 16 Blood Pressure 171/81 H Pulse Oximetry 98 Oxygen Delivery Method Room Air MDM - Skin/Abscess/Foreign Bdy MDM Narrative Medical decision making narrative: Patient with isolated erythema around the skin of her nasal bridge and nose tip. There is honey crusting present that is indicative of impetigo. Patient counseled on presumptive diagnosis. She was advised that this is unlikely to be related to Flonase use and she should use Flonase if she continues to feel benefit from it. Mupirocin ointment sent to pharmacy of choice. Patient's primary care doctor is in [place], and so out of precaution she was given an oral antibiotic if the mupirocin does not improve her symptoms. ED return precautions discussed at bedside. Patient expressed understanding of the plan and is in agreement at this time. All questions answered at the time of discharge. Discharge Plan Departure Patient Disposition: Home Clinical Impression: Impetigo Instructions: DI for Impetigo Activity Restrictions/Additional Instructions: Today on exam you appear to have a soft tissue infection called impetigo, which is usually caused by staph and strep. Usually this is able to be well treated with just the mupirocin ointment. If you have use this medication for 48 hours and are not noticing improvement then you may take the oral medication. Make sure that if you start this medication you finish all of it as prescribed. Follow up as needed with your primary care doctor. Continue to use Flonase and other previously recommended medications Prescriptions: New mupirocin 2 % ointment 1 applic topical TID Qty: 22 0RF cephalexin 250 mg capsule 250 mg PO QID 7 Days Qty: 28 0RF No Action topiramate [Topamax] 50 MG tablet 50 mg Qty: 0 hydrocodone-acetaminophen [Vicodin] 5 MG/300 MG tablet Qty: 0 meloxicam [Mobic] 7.5 MG tablet 7.5 mg PO AMCC Qty: 0 oxycodone-acetaminophen [Percocet] 5 MG/325 MG tablet 1 - 2 tab PO Q4HP PRNQty: 10 0RF prednisone 50 MG tablet 50 mg PO AMCC 5 Days Qty: 0 0RF Referrals: Trudi Jones DO [Primary Care Provider] - Stand Alone Forms: Patient Portal/API/Survey
== END 2024-06-17 10:19 | disposition home or self-care (01) ==
PROVIDERS: Emergency Provider Emergency Medicine; Family Provider Orthopaedic Surgery; PCP Family Medicine
DX: L01.00 Impetigo, unspecified (principal)
CPT/HCPCS: 99281